=== PATIENT | male | born 1960 | race Caucasian/White ===

== ENCOUNTER 2018-01-19 14:20 | Emergency (ER) | payer OTHER ==
[2018-01-19 14:52] VITALS: RESP 18; TEMP 98.8
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
[2018-01-19 17:27] LABS: Appearance,Urine Clear (Clear); Bilirubin,Urine Negative (Negative); Blood,Urine Small (Negative); Color,Urine Yellow; Glucose,Urine (UA) Negative (Negative); Ketones,Urine Negative (Negative); Leukocyte Esterase,Urine Negative (Negative); Mucus,Urine Many /hpf; Nitrite,Urine Negative (Negative); PH, Urine 5.5 (5.0-8.0); Protein,Urine Trace (Negative); RBC,Urine 4 /hpf (0-5); Specific Gravity,Urine 1.025 (1.001-1.035); Squamous Epithelial Cell,Urine 1 /hpf (0-4); Urobilinogen,Urine <2.0 mg/dL (<2.0); WBC,Urine 2 /hpf (0-5)
[2018-01-19 18:10] VITALS: BP 126/78; PULSE 89
--- NOTE | 2018-01-19 18:18 | XR ---
EXAMINATION TYPE: XR ribs LT w pa chest xray DATE OF EXAM: 01/19/2018 COMPARISON: NONE HISTORY: Rib pain TECHNIQUE: 5 views FINDINGS: I see no pleural effusion or pneumothorax. Left lung is clear of infiltrate. There is no ev idence of a rib fracture. There are no pathologic calcifications. Heart and mediastinum are normal. L ungs are clear. IMPRESSION: Normal chest. Normal left ribs.
== END 2018-01-19 18:05 | disposition home or self-care (01) ==
LOC: EC 14:20
DX: S29.012A Strain of muscle and tendon of back wall of thorax, initial encounter (principal); S20.212A Contusion of left front wall of thorax, initial encounter; I10 Essential (primary) hypertension; Z79.01 Long term (current) use of anticoagulants; Z79.82 Long term (current) use of aspirin; Z79.899 Other long term (current) drug therapy; V59.49XA Driver of pick-up truck or van injured in collision with other motor vehicles in traffic accident, initial encounter; Y92.410 Unspecified street and highway as the place of occurrence of the external cause
CPT/HCPCS: 81001; 99284

== ENCOUNTER → 2018-10-06 | Outpatient (CLI) | payer OTHER ==
[2018-10-06 16:41] LABS: Chol/HDL Ratio 8.75; Cholesterol 245 mg/dL (0-200); Triglycerides >1100.0 mg/dL (0.0-149.0)
[2018-10-06 16:42] LABS: ALT 47 U/L (10-49); AST 29 U/L (14-35); African American GFR (CKD) 95.7 (60.0-200.0); Alkaline Phosphatase 114 U/L (41-126); Calcium 9.1 mg/dL (8.7-10.3); Carbon Dioxide 22.1 mmol/L (21.6-31.8); Chloride 105 mmol/L (96-109); Globulin 1.5 g/dL (1.6-3.3); Glucose 103 mg/dL (70-110); Non-African American GFR(CKD) 82.6 (60.0-200.0); Potassium 4.5 mmol/L (3.5-5.5); Sodium 139 mmol/L (135-145); Total Bilirubin 0.4 mg/dL (0.2-1.2)
[2018-10-06 18:05] LABS: Hemoglobin A1C 5.4 % (4.0-6.0)
== END | disposition home or self-care (01) ==
LOC: LABWHC1 09:13
PROVIDERS: ATTEND Family Medicine
DX: Z00.00 Encounter for general adult medical examination without abnormal findings (principal); I10 Essential (primary) hypertension; Z79.899 Other long term (current) drug therapy
CPT/HCPCS: 36415; 80053; 80061; 83036; 84443; 85652; 86431

== ENCOUNTER 2019-02-16 18:50 | Observation (INO) | payer OTHER ==
[2019-02-16] MEDS ORDERED: ONDANSETRON 4 MG/2 ML VIAL IVP STA (19:09)
[2019-02-16] MEDS ORDERED: HYDROmorphone 0.5 MG/0.5 ML SYRINGE IVP STA (19:09)
[2019-02-16] MEDS ORDERED: SODIUM CHLORIDE 0.9% 1,000 ML IV STA (19:09)
--- NOTE | 2019-02-16 19:13 | ED ---
General Adult HPI - General Chief complaint: Chest Pain Stated complaint: Vomiting Time Seen by Provider: 02/16/19 18:59 Source: patient, family Mode of arrival: ambulatory Limitations: no limitations - History of Present Illness Initial comments: Patient presents to the ED with his for evaluation. Patient states that he has had nausea and vomiting for the past 2 days, and he states that he has been unable to keep anything down. Patient's states that the patient takes daily pain medication for chronic pain syndrome, and she states that he has been unable to keep down any of his pain medication or any other medications for the past 2 days. Patient is complaining of having diffuse pain at this time, including diffuse abdominal pain, chest pain, a headache and generalized myalgias. Patient denies known sick contact. Patient denies trauma or injury, fever, focal numbness/weakness/neuro deficit, neck stiffness, dyspnea, cough or cold symptoms, palpitations, syncope, diarrhea or constipation, bloody or melanotic stool, hematemesis, dysuria/hematuria/urinary frequency/urinary symptoms, decreased urine output, leg or calf swelling or pain, or any other symptoms or complaints. - Related Data Home Medications Medication Instructions Recorded Confirmed Aspirin EC [Ecotrin Low Dose] 81 mg PO DAILY 01/19/18 01/19/18 Atorvastatin [Lipitor] 40 mg PO HS 01/19/18 01/19/18 Clopidogrel [Plavix] 75 mg PO DAILY 01/19/18 01/19/18 Losartan [Cozaar] 50 mg PO DAILY 01/19/18 01/19/18 Metoprolol Succinate (ER) [Toprol 50 mg PO HS 01/19/18 01/19/18 Xl] Previous Rx's Medication Instructions Recorded Ibuprofen 800 mg PO Q6HR PRN #20 tablet 01/19/18 Allergies Allergy/AdvReac Type Severity Reaction Status Date / Time No Known Allergies Allergy Verified 01/19/18 16:15 Review of Systems ROS Statement: Those systems with pertinent positive or pertinent negative responses have been documented in the HPI. ROS Other: All systems not noted in ROS Statement are negative. Past Medical History Past Medical History: GERD/Reflux, Hypertension, Myocardial Infarction ([place]) Additional Past Medical History / Comment(s): joint pain, chronic pain, [place] 2011 History of Any Multi-Drug Resistant Organisms: None Reported Past Surgical History: Cholecystectomy Additional Past Surgical History / Comment(s): back fusion, right wrist tendon repair Past Psychological History: No Psychological Hx Reported Smoking Status: Never smoker Past Alcohol Use History: Rare Past Drug Use History: None Reported General Exam Limitations: no limitations General appearance: alert, in no apparent distress Head exam: Present: atraumatic, normocephalic Eye exam: Present: normal appearance, PERRL, EOMI ENT exam: Present: mucous membranes dry Neck exam: Present: other (Trachea is in midline). Absent: tenderness, meningismus Respiratory exam: Present: normal lung sounds bilaterally. Absent: respiratory distress, wheezes, rales, rhonchi, chest wall tenderness Cardiovascular Exam: Present: regular rate, normal rhythm, normal heart sounds, other (Normal radial pulses bilaterally) GI/Abdominal exam: Present: soft, other (Mild generalized tenderness). Absent: distended, guarding, rebound Extremities exam: Present: other (Negative Cleve's sign bilaterally). Absent: tenderness, pedal edema, calf tenderness Back exam: Absent: tenderness, CVA tenderness (R), CVA tenderness (L) Neurological exam: Present: alert, oriented X3, CN II-XII intact. Absent: motor sensory deficit Psychiatric exam: Present: normal affect, normal mood Skin exam: Present: warm, dry, intact, normal color Course Vital Signs 02/16/19 02/16/19 18:52 19:11 Temperature 98.0 F 97.7 F Pulse Rate 83 73 Respiratory 18 16 Rate Blood Pressure 148/95 150/102 O2 Sat by Pulse 97 99 Oximetry - Reevaluation(s) Reevaluation #1: 02/16/19 20:04 Case, H&P, test results and ED management were discussed with Dr. Rea. He accepts hospital floor admission. He has no further recommendations at this time. 02/16/19 20:07 Patient states that he is now feeling better, and he denies development of any new symptoms while in the ED. Patient has not any vomiting while in the ED. Patient remains alert and breathing comfortably with a normal room air oxygen saturation. Patient and are aware of the patient's test results, and patient agrees with hospital admission at this time. EKG Findings - EKG Comments: EKG Findings:: Normal sinus rhythm, ventricular rate of 75 bpm, no ectopy, normal [place] and QRS intervals, normal QT interval, normal axis, nonspecific ST and T-wave abnormality Medical Decision Making - Medical Decision Making Given the patient's symptoms and cardiac history, will admit the patient to the hospital for cardiac monitoring and serial troponins. Will also admit the patient to the hospital for rehydration with IV fluids. Patient's troponin in the ED is negative. I do not suspect a surgical abdominal condition, as the patient's abdomen is soft and without any surgical signs on exam. Dr. Rea has accepted hospital floor admission. - Lab Data Result diagrams: 02/16/19 19:10 02/16/19 19:10 Lab Results 02/16/19 02/16/19 02/16/19 Range/Units 19:10 19:10 19:10 WBC 12.0 H (3.8-10.6) k/uL RBC 5.21 (4.30-5.90) m/uL Hgb 16.1 (13.0-17.5) gm/dL Hct 46.4 (39.0-53.0) % MCV 89.1 (80.0-100.0) fL MCH 30.9 (25.0-35.0) pg MCHC 34.7 (31.0-37.0) g/dL RDW 12.3 (11.5-15.5) % Plt Count 248 (150-450) k/uL Neutrophils % 82 % Lymphocytes % 12 % Monocytes % 4 % Eosinophils % 1 % Basophils % 0 % Neutrophils # 9.8 H (1.3-7.7) k/uL Lymphocytes # 1.5 (1.0-4.8) k/uL Monocytes # 0.5 (0-1.0) k/uL Eosinophils # 0.1 (0-0.7) k/uL Basophils # 0.0 (0-0.2) k/uL PT 10.4 (9.0-12.0) sec INR 1.0 (<1.2) APTT 25.2 (22.0-30.0) sec Sodium 140 (137-145) mmol/L Potassium 3.9 (3.5-5.1) mmol/L Chloride 99 (98-107) mmol/L Carbon Dioxide 26 (22-30) mmol/L Anion Gap 15 mmol/L BUN 36 H (9-20) mg/dL Creatinine 1.09 (0.66-1.25) mg/dL Est GFR (CKD-EPI)AfAm 86 (>60 ml/min/1.73 sqM) Est GFR (CKD-EPI)NonAf 75 (>60 ml/min/1.73 sqM) Glucose 150 H (74-99) mg/dL Calcium 10.3 H (8.4-10.2) mg/dL Magnesium 2.4 H (1.6-2.3) mg/dL Total Bilirubin 1.0 (0.2-1.3) mg/dL AST 26 (17-59) U/L ALT 36 (4-49) U/L Alkaline Phosphatase 103 (38-126) U/L Troponin I (0.000-0.034) ng/mL Total Protein 8.1 (6.3-8.2) g/dL Albumin 5.3 H (3.5-5.0) g/dL Lipase 108 (23-300) U/L 02/16/ Range/Units 19:10 WBC (3.8-10.6) k/uL RBC (4.30-5.90) m/uL Hgb (13.0-17.5) gm/dL Hct (39.0-53.0) % MCV (80.0-100.0) fL MCH (25.0-35.0) pg MCHC (31.0-37.0) g/dL RDW (11.5-15.5) % Plt Count (150-450) k/uL Neutrophils % % Lymphocytes % % Monocytes % % Eosinophils % % Basophils % % Neutrophils # (1.3-7.7) k/uL Lymphocytes # (1.0-4.8) k/uL Monocytes # (0-1.0) k/uL Eosinophils # (0-0.7) k/uL Basophils # (0-0.2) k/uL PT (9.0-12.0) sec INR (<1.2) APTT (22.0-30.0) sec Sodium (137-145) mmol/L Potassium (3.5-5.1) mmol/L Chloride (98-107) mmol/L Carbon Dioxide (22-30) mmol/L Anion Gap mmol/L BUN (9-20) mg/dL Creatinine (0.66-1.25) mg/dL Est GFR (CKD-EPI)AfAm (>60 ml/min/1.73 sqM) Est GFR (CKD-EPI)NonAf (>60 ml/min/1.73 sqM) Glucose (74-99) mg/dL Calcium (8.4-10.2) mg/dL Magnesium (1.6-2.3) mg/dL Total Bilirubin (0.2-1.3) mg/dL AST (17-59) U/L ALT (4-49) U/L Alkaline Phosphatase (38-126) U/L Troponin I <0.012 (0.000-0.034) ng/mL Total Protein (6.3-8.2) g/dL Albumin (3.5-5.0) g/dL Lipase (23-300) U/L - Radiology Data Radiology results: image reviewed (Chest x-ray is negative) Disposition Clinical Impression: Nausea and vomiting, Abdominal pain, Chest pain, Dehydration Disposition: ADMITTED IP TO THIS [facility] Condition: Stable Is patient prescribed a controlled substance at d/c from ED?: No Referrals: Markell Rea MD [Primary Care Provider] - 1-2 days Time of Disposition: 20:04
[2019-02-16 19:31] LABS: Basophils % (A) 0 %; Eosinophils # (A) 0.1 k/uL (0-0.7); Eosinophils % (A) 1 %; HCT 46.4 % (39.0-53.0); HGB 16.1 gm/dL (13.0-17.5); Lymphocytes # (A) 1.5 k/uL (1.0-4.8); Lymphocytes % (A) 12 %; MCH 30.9 pg (25.0-35.0); MCHC 34.7 g/dL (31.0-37.0); MCV 89.1 fL (80.0-100.0); Mean Platelet Volume 7.9; Monocytes # (A) 0.5 k/uL (0-1.0); Monocytes % (A) 4 %; Neutrophils # (A) 9.8 k/uL (1.3-7.7); Neutrophils % (A) 82 %; Platelet Count 248 k/uL (150-450); RBC 5.21 m/uL (4.30-5.90); RDW 12.3 % (11.5-15.5)
[2019-02-16 19:39] LABS: Partial Thromboplastin Time 25.2 sec (22.0-30.0); Prothrombin Time 10.4 sec (9.0-12.0)
[2019-02-16 19:40] LABS: Albumin 5.3 g/dL (3.5-5.0); Calcium 10.3 mg/dL (8.4-10.2); Magnesium 2.4 mg/dL (1.6-2.3); Potassium 3.9 mmol/L (3.5-5.1); Total Protein 8.1 g/dL (6.3-8.2)
--- NOTE | 2019-02-16 19:45 | XR ---
EXAMINATION TYPE: XR chest 2V DATE OF EXAM: 02/16/2019 COMPARISON: 01/19/2018 HISTORY: Chest pain TECHNIQUE: 2 views FINDINGS: Heart and mediastinum are normal. Lungs are clear. Diaphragm is normal. Bony thorax is inta ct. IMPRESSION: Normal chest. No change.
[2019-02-16] MEDS ORDERED: SODIUM CHLORIDE 0.9% 1,000 ML IV ONE (19:58)
[2019-02-16] MEDS ORDERED: ASPIRIN 81 MG PO STA (20:04)
[2019-02-16] MEDS ORDERED: ONDANSETRON 4 MG/2 ML VIAL IVP PRN (20:05)
[2019-02-16 20:58] VITALS: RESP 18
[2019-02-16] MEDS ORDERED: NON FORMULARY DRUG (Omega-3 Fatty Acids/Fish Oil [Fish Oil 1,000 Mg Softgel] 1 CAP) PO SCH (21:00)
[2019-02-16] MEDS ORDERED: METOPROLOL SUCCINATE (ER) 50 MG TAB.ER.24H PO SCH (21:00)
[2019-02-16] MEDS ORDERED: AMITRIPTYLINE HCL 25 MG TAB PO SCH (21:00)
[2019-02-16] MEDS ORDERED: ATORVASTATIN 40 MG TAB PO SCH (21:00)
[2019-02-16] MEDS ORDERED: ORPHENADRINE CITRATE 100 MG PO SCH (21:00)
[2019-02-16] MEDS: CYCLOBENZAPRINE 10 MG TAB PO SCH (21:19)
[2019-02-16] MEDS: BACLOFEN 10 MG TAB PO SCH (21:20)
[2019-02-16] MEDS: PREGABALIN 75 MG CAP PO SCH (21:20)
[2019-02-16] MEDS: ETODOLAC 400 MG TAB PO SCH (21:20)
[2019-02-16] MEDS: ICOSAPENT ETHYL 1 GM PO SCH (21:33)
[2019-02-16] MEDS: SODIUM CHLORIDE 0.9% 1,000 ML IV SCH (22:48)
[2019-02-17] MEDS: HYDROmorphone 1 MG/ML 1 ML SYRINGE IVP PRN ×2 (01:04→04:40)
[2019-02-17 05:00] LABS: Appearance,Urine Clear (Clear); Bilirubin,Urine Negative (Negative); Blood,Urine Negative (Negative); Color,Urine Yellow; Glucose,Urine (UA) Trace (Negative); Ketones,Urine Trace (Negative); Leukocyte Esterase,Urine Negative (Negative); Nitrite,Urine Negative (Negative); PH, Urine 6.5 (5.0-8.0); Protein,Urine Trace (Negative); Specific Gravity,Urine 1.029 (1.001-1.035)
[2019-02-17 05:35] VITALS: TEMP 98.1
[2019-02-17] MEDS: SODIUM CHLORIDE 0.9% 1,000 ML IV SCH (06:01)
[2019-02-17 07:42] VITALS: BP 125/81; PULSE 61
[2019-02-17 07:51] LABS: Basophils % (A) 0 %; Eosinophils % (A) 0 %; Lymphocytes # (A) 1.6 k/uL (1.0-4.8); Lymphocytes % (A) 13 %; MCV 91.2 fL (80.0-100.0); Mean Platelet Volume 7.8; Monocytes # (A) 0.6 k/uL (0-1.0); Monocytes % (A) 5 %; Neutrophils # (A) 9.7 k/uL (1.3-7.7); Neutrophils % (A) 81 %; Platelet Count 189 k/uL (150-450); RBC 4.17 m/uL (4.30-5.90); RDW 12.4 % (11.5-15.5)
[2019-02-17 07:55] LABS: HGB 12.9 gm/dL (13.0-17.5)
[2019-02-17 08:00] LABS: ALT 27 U/L (4-49); AST 20 U/L (17-59); African American GFR (CKD) >90 (>60 ml/min/1.73 sqM); Albumin 3.7 g/dL (3.5-5.0); Alkaline Phosphatase 63 U/L (38-126); Anion Gap 10 mmol/L; Blood Urea Nitrogen 31 mg/dL (9-20); Calcium 8.4 mg/dL (8.4-10.2); Carbon Dioxide 24 mmol/L (22-30); Chloride 107 mmol/L (98-107); Glucose 111 mg/dL (74-99); Non-African American GFR(CKD) >90 (>60 ml/min/1.73 sqM); Potassium 3.9 mmol/L (3.5-5.1); Sodium 141 mmol/L (137-145); Total Bilirubin 0.8 mg/dL (0.2-1.3)
--- NOTE | 2019-02-17 08:24 | P.CRDCN ---
History of Present Illness Consult date: 02/17/19 Requesting physician: Markell Rea Reason for Consult (text): chest pain Chief complaint: nausea, vomiting, generalized pain History of present illness: This is a pleasant 58-year-old gentleman [facility]. Has a history of supposedly PR in 2010 at which time he was a [facility] and did not undergo coronary angiography, was treated medically. Within the last 2 years he started following with a assembly and packing supervisor who noted abnormalities on his EKG and did some testing at which time he was told he has a blockage that'll be treated medically. He also has a history of hypertension and hyperlipidemia as well as chronic back pain. He presented to the emergency department with complaints of nausea and vomiting since the morning of February 14. He's been unable to keep down any food, drink or medications. Upon arrival he also complained of some generalized discomfort in his abdomen and chest that he feels is related to vom iting. EKG on admission showed sinus rhythm with nonspecific ST-T wave abnormalities. Chest x-ray showed normal chest, no change. Laboratory values on admission showed white blood cell count 12,000, hemoglobin 16.1, BUN 36, creatinine 1.09, calcium 10.3, magnesium 2.4 and troponins have been negative 2. Repeat labs this morning showed white blood cell count of 12,000, hemoglobin 12.9, BUN 31, creatinine 0.89 and calcium 8.4. He is currently on aspirin 81 mg by mouth daily, atorvastatin 40 mg by mouth daily at bedtime, Plavix 75 mg by mouth daily, losartan 50 mg daily and metoprolol succinate 50 mg by mouth daily at bedtime. He has 0.9 normal saline running at 120 mL an hour. Upon examination, patient is resting comfortably in bed. Denies complaints of chest discomfort while lying in bed but does feel some discomfort if he moves around that seems to be musculoskeletal. He has no current complaints of nausea or vomiting. He has noted some shortness of breath just over the past couple of days with this illness as well as some lightheadedness but otherwise has no complaints. Past Medical History Past Medical History: GERD/Reflux, Hypertension, Myocardial Infarction ([place]) Additional Past Medical History / Comment(s): joint pain, chronic pain, [place] 2010 Last Myocardial Infarction Date:: 2010 History of Any Multi-Drug Resistant Organisms: None Reported Past Surgical History: Cholecystectomy Additional Past Surgical History / Comment(s): back fusion, right wrist tendon repair Past Psychological History: Depression Smoking Status: Never smoker Past Alcohol Use History: Rare Past Drug Use History: None Reported Medications and Allergies Home Medications Medication Instructions Recorded Confirmed Type Aspirin EC [Ecotrin Low Dose] 81 mg PO DAILY 01/19/18 02/16/19 History Atorvastatin [Lipitor] 40 mg PO HS 01/19/18 02/16/19 History Clopidogrel [Plavix] 75 mg PO DAILY 01/19/18 02/16/19 History Metoprolol Succinate (ER) [Toprol 50 mg PO HS 01/19/18 02/16/19 History Xl] Amitriptyline HCl [Elavil] 25 mg PO HS 02/16/19 02/16/19 History Baclofen [Lioresal] 10 mg PO TID 02/16/19 02/16/19 History DULoxetine HCL [Cymbalta] 30 mg PO DAILY 02/16/19 02/16/19 History Diclofenac Sodium [Voltaren] 75 mg PO BID 02/16/19 02/16/19 History Hydrochlorothiazide [Hydrodiuril] 25 mg PO DAILY 02/16/19 02/16/19 History Icosapent Ethyl [Vascepa] 1 gm PO BID 02/16/19 02/16/19 History Metaxalone [Skelaxin] 800 mg PO TID 02/16/19 02/16/19 History Omar-3 Fatty Acids/Fish Oil [Fish 1 cap PO BID 02/16/19 02/16/19 History Oil 1,000 mg Softgel] Omeprazole 20 mg PO DAILY 02/16/19 02/16/19 History Orphenadrine Citrate [Orphenadrine 100 mg PO BID 02/16/19 02/16/19 History Citrate ER] Pregabalin [Lyrica] 75 mg PO BID 02/16/19 02/16/19 History Allergies Allergy/AdvReac Type Severity Reaction Status Date / Time No Known Allergies Allergy Verified 02/16/19 20:19 Physical Exam Vitals: Vital Signs Temp Pulse Pulse Resp BP BP Pulse Ox 02/17/19 07:41 98.1 F 61 18 125/81 96 02/17/19 04:00 98.1 F 70 18 141/82 97 02/17/19 00:00 98.2 F 83 18 143/83 97 02/16/19 23:41 79 18 02/16/19 20:57 97.7 F 79 18 145/88 97 02/16/19 20:15 17 02/16/19 19:11 97.7 F 73 16 150/102 99 02/16/19 18:52 98.0 F 83 18 148/95 97 Intake and Output 02/16/19 02/17/19 02/17/19 22:59 06:59 14:59 Output Total 350 Balance -350 Output: Urine 350 Other: # Voids 1 Weight 104.326 kg PHYSICAL EXAMINATION: HEENT: Head is atraumatic, normocephalic. Pupils equal, round. Neck is supple. There is no elevated jugular venous pressure. HEART EXAMINATION: Heart sounds regular, S1 and S2 normal. No murmur or gallop heard. CHEST EXAMINATION: Lungs are clear to auscultation. No chest wall tenderness is noted on palpation or with deep breathing. ABDOMEN: Soft, nontender. Bowel sounds are heard. No organomegaly noted. EXTREMITIES: 1+ peripheral pulses with no evidence of peripheral edema and no calf tenderness noted. NEUROLOGIC patient is awake, alert and oriented x3. . Results 02/17/19 07:16 02/17/19 07:16 Cardiac Enzymes 02/16/19 02/16/19 02/17/19 Range/Units 19:10 19:10 01:04 AST 26 (17-59) U/L Troponin I <0.012 <0.012 (0.000-0.034) ng/mL 02/17/19 02/17/19 Range/Units 07:16 07:16 AST 20 (17-59) U/L Troponin I <0.012 (0.000-0.034) ng/mL Coagulation 02/16/19 Range/Units 19:10 PT 10.4 (9.0-12.0) sec APTT 25.2 (22.0-30.0) sec CBC 02/16/19 02/17/19 Range/Units 19:10 07:16 WBC 12.0 H 12.0 H (3.8-10.6) k/uL RBC 5.21 4.17 L (4.30-5.90) m/uL Hgb 16.1 12.9 L D (13.0-17.5) gm/dL Hct 46.4 38.0 L (39.0-53.0) % Plt Count 248 189 (150-450) k/uL Comprehensive Metabolic Panel 02/16/19 02/17/19 Range/Units 19:10 07:16 Sodium 140 141 (137-145) mmol/L Potassium 3.9 3.9 (3.5-5.1) mmol/L Chloride 99 107 (98-107) mmol/L Carbon Dioxide 26 24 (22-30) mmol/L BUN 36 H 31 H (9-20) mg/dL Creatinine 1.09 0.89 (0.66-1.25) mg/dL Glucose 150 H 111 H (74-99) mg/dL Calcium 10.3 H 8.4 (8.4-10.2) mg/dL AST 26 20 (17-59) U/L ALT 36 27 (4-49) U/L Alkaline Phosphatase 103 63 (38-126) U/L Total Protein 8.1 6.0 L (6.3-8.2) g/dL Albumin 5.3 H 3.7 (3.5-5.0) g/dL Current Medications Generic Name Dose Route Start Last Admin Trade Name Freq PRN Reason Stop Dose Admin Amitriptyline HCl 25 mg 02/16/19 21:00 02/16/19 21:20 Elavil PO 25 mg HS JYOTI Administration Aspirin 81 mg 02/17/19 09:00 Aspirin PO DAILY COUNT INCLUDES THE [facility] Atorvastatin Calcium 40 mg 02/16/19 21:00 02/16/19 21:19 Lipitor PO 40 mg HS JYOTI Administration Baclofen 10 mg 02/16/19 22:00 02/16/19 21:20 Lioresal PO 10 mg TID JYOTI Administration Clopidogrel Bisulfate 75 mg 02/17/19 09:00 Plavix PO DAILY COUNT INCLUDES THE [facility] Cyclobenzaprine HCl 10 mg 02/16/19 22:00 02/16/19 21:19 Flexeril PO 10 mg TID JYOTI Administration Duloxetine HCl 30 mg 02/17/19 09:00 Cymbalta PO DAILY COUNT INCLUDES THE [facility] Etodolac 400 mg 02/16/19 21:00 02/16/19 21:20 Lodine PO 400 mg BID JYOTI Administration Hydrochlorothiazide 25 mg 02/17/19 09:00 Hydrodiuril PO DAILY JYOTI Hydromorphone HCl 1 mg 02/16/19 20:57 02/17/19 04:40 Dilaudid IVP 1 mg Q4HR PRN Administration Pain Sodium Chloride 1,000 mls @ 120 mls/hr 02/16/19 20:15 02/17/19 06:01 Saline 0.9% IV 120 mls/hr .[id number] JYOTI Administration Losartan Potassium 50 mg 02/17/19 09:00 Cozaar PO DAILY JYOTI Metoprolol Succinate 50 mg 02/16/19 21:00 02/16/19 21:19 Toprol Xl PO 50 mg HS JYOTI Administration Non-Formulary Medication 1 gm 02/16/19 21:00 02/16/19 21:33 Icosapent Ethyl [Vascepa] PO Not Given BID JYOTI Ondansetron HCl 4 mg 02/16/19 20:05 Zofran IVP Q8HR PRN Nausea And Vomiting Pantoprazole Sodium 40 mg 02/17/19 09:00 Protonix PO DAILY JYOTI Pregabalin 75 mg 02/16/19 21:00 02/16/19 21:20 Lyrica PO 75 mg BID JYOTI Administration Intake and Output 02/16/19 02/17/19 02/17/19 22:59 06:59 14:59 Output Total 350 Balance -350 Output: Urine 350 Other: # Voids 1 Weight 104.326 kg 02/17/19 07:16 02/17/19 07:16 EKG Interpretations (text) Sinus rhythm with nonspecific ST-T wave abnormalities Assessment and Plan Assessment: #1 symptoms of nausea, vomiting, abdominal and chest discomfort, troponins negative 2 #2 history of CAD #3 hypertension #4 hyperlipidemia #5 chronic back pain Plan: From cardiology perspective, pain is atypical and likely due to musculoskeletal discomfort secondary to repeated vomiting for 3 days. Troponins have been negative. The patient may be discharged once cleared by primary and follow-up within the next week with his primary assembly and packing supervisor. BUSINESS TEACHER note has been reviewed, I agree with a documented findings and plan of care. Patient was seen and examined.
[2019-02-17] MEDS: BACLOFEN 10 MG TAB PO SCH (08:32)
[2019-02-17] MEDS: ETODOLAC 400 MG TAB PO SCH (08:32)
[2019-02-17] MEDS: PREGABALIN 75 MG CAP PO SCH (08:32)
[2019-02-17] MEDS: CYCLOBENZAPRINE 10 MG TAB PO SCH (08:32)
[2019-02-17] MEDS ORDERED: PANTOPRAZOLE 40 MG TABLET PO SCH (09:00)
[2019-02-17] MEDS ORDERED: DULoxetine HCL 30 MG CAPSULE.DR PO SCH (09:00)
[2019-02-17] MEDS ORDERED: LOSARTAN 50 MG TAB PO SCH (09:00)
[2019-02-17] MEDS ORDERED: ASPIRIN 81 MG PO SCH (09:00)
[2019-02-17] MEDS ORDERED: CLOPIDOGREL 75 MG TAB PO SCH (09:00)
[2019-02-17] MEDS ORDERED: HYDROCHLOROTHIAZIDE 25 MG TAB PO SCH (09:00)
[2019-02-17] MEDS: ICOSAPENT ETHYL 1 GM PO SCH (10:43)
--- NOTE | 2019-03-05 22:36 | HP ---
HISTORY AND PHYSICAL CHIEF COMPLAINT: A 58-year-old white male, nausea, vomiting for the past 2 days, unable to keep anything down. He states he takes chronic pain medicine at home, unable to keep his pain medicine down for 2 days. He is complaining of diffuse pain in his muscles of his abdomen and chest, headache and myalgias. Denies any dysuria, frequency, urgency, hesitancy, decreased urine output, leg or calf pain or any other symptoms. MEDICATIONS: At home, Ecotrin 81 mg daily. Lipitor 40 daily, Plavix 75 daily, Cozaar 50 daily. ALLERGIES: Negative. REVIEW OF SYSTEMS: Fourteen-point review of systems negative except for mentioned in HPI. PAST MEDICAL HISTORY: GERD, hypertension, myocardial infarction. PAST SURGICAL HISTORY: Cholecystectomy, back fusion, right wrist tendon repair. SOCIAL HISTORY: Nonsmoker, alcohol. PHYSICAL EXAMINATION: Vital signs stable. Afebrile. CARDIOVASCULAR: S1, S2. Lungs clear. GI soft. Hematology negative Homans. Psych: Fair mood and affect. Neurologic: Cranial nerves are intact. Ophthalmologic: Pupils equal, round, reactive. Hematology negative Homans. Temp 97 to 98, pulse 73 to 83. Respiratory rate is 16 to 18, blood pressure 140s to 150 over 95 to 102, oxygen saturation 97 to 99% on room air. ASSESSMENT AND PLAN: 1. Dehydration. 2. Acute nausea, vomiting. 3. Atypical chest pain. 4. Cardiac history. 5. Rule out troponins q.8h x3. negative. 6. Possible gastroenteritis. 7. Consult Cardiology. 8. Please see further orders. MMODL / IJN: [id number] /
--- NOTE | 2019-03-06 00:08 | DS ---
DISCHARGE SUMMARY ADMIT DATE: 02/16/2019. DISCHARGE DATE: 02/17/2019. CONDITION: Stable. PROGNOSIS: Guarded. Ambulate as tolerated. MEDICATIONS: 1. Aspirin 81 mg daily. 2. Lipitor 40 mg daily. 3. Plavix 75 mg daily. 4. Toprol XL 50 mg daily. 5. HydroDIURIL 25 mg daily. 6. Skelaxin 800 t.i.d. 7. Vascepa 1 g b.i.d. 8. Aricept 10 mg t.i.d. 9. Elavil 25 at night. 10.Lyrica 75 mg b.i.d. 11.Terfenadine citrate 100 mg b.i.d. 12.Omeprazole 20 mg daily. 13.Voltaren 75 mg b.i.d. 14.Cymbalta 30 mg daily. CONDITION: Stable. PROGNOSIS: Guarded. Ambulate as tolerated. White male came with atypical chest pain. Cardiology saw the patient and cleared him from a medical standpoint for many heart disease. At which time he was sent home to follow up as an outpatient. EKG was normal. Musculoskeletal in nature pain. MMODL / IJN: [id number] /
== END 2019-02-17 12:09 | disposition home or self-care (01) ==
LOC: EC 18:50 → 1SOBS 20:07
PROVIDERS: ADMIT Family Medicine; ATTEND Family Medicine
DX: R07.89 Other chest pain (principal); E86.0 Dehydration; R10.9 Unspecified abdominal pain; R11.2 Nausea with vomiting, unspecified; R51 Headache; G89.4 Chronic pain syndrome; K21.9 Gastro-esophageal reflux disease without esophagitis; I10 Essential (primary) hypertension; E78.5 Hyperlipidemia, unspecified; I25.10 Atherosclerotic heart disease of native coronary artery without angina pectoris; F32.9 Major depressive disorder, single episode, unspecified; I25.2 Old myocardial infarction; Z79.1 Long term (current) use of non-steroidal anti-inflammatories (NSAID); Z79.02 Long term (current) use of antithrombotics/antiplatelets; Z79.82 Long term (current) use of aspirin; Z79.899 Other long term (current) drug therapy; Z90.49 Acquired absence of other specified parts of digestive tract; Z98.1 Arthrodesis status
CPT/HCPCS: 93005 ×2; 96376; 96374; 96375; 99285; 36415; 80053 ×2; 83690; 83735; 84484 ×2; 85025 ×2; 85610; 85730; 81003; 71046; G0378 ×2; J2405; J1170 ×2

== ENCOUNTER → 2019-05-28 | Outpatient (CLI) | payer OTHER ==
[~2019-05-28] MED LIST: REGADENOSON 0.4 MG/5 ML SYRINGE IV ONE
--- NOTE | 2019-05-28 10:16 | EST ---
EXERCISE STRESS AGE: 58 SEX: M HT: 72' WT: 230 PROTOCOL: Lexiscan Cardiolite Stress Test HEART RATE REST: 67 BLOOD PRESSURE REST: 130/81 MAXIMUM HEART RATE ACHIEVED: 92 MAXIMUM BLOOD PRESSURE: 133/79 85% MPHR: 138 100% MPHR: 162 INDICATIONS: Abnormal EKG CLINICAL INFORMATION: Baseline rhythm is a sinus mechanism, rate 67, normal axis and intervals. T-wave inversion in the inferolateral leads cannot exclude ischemia. Baseline blood pressure 130/81 mmHg. Patient received injection of Lexiscan. Electrocardiograph monitoring revealed no evidence of diagnostic ischemic ST deviation. Cardiolite was injected per protocol. CONCLUSION: 1. Nondiagnostic electrocardiograph stress testing. 2. Nuclear images will be reported separately. MMODL / IJN: [id number] /
--- NOTE | 2019-05-28 10:58 | NM ---
EXAMINATION TYPE: NM stress lexiscan cardiolite DATE OF EXAM: 05/28/2019 COMPARISON: NONE HISTORY: Precordial chest pain and abnormal EKG TECHNIQUE: After the intravenous administration of 10.34 mCi Tc 99m Sestamibi - Cardiolite resting S PECT images acquired 45 minutes post injection. The patient received 0.4mg Lexiscan, 25.9 mCi Tc 99m Sestamibi - Stress images obtained [address] injection FINDINGS: Review of stress and rest SPECT images demonstrates no distinct perfusion abnormality. Gated analysi s shows normal wall motion with an estimated left ventricular ejection fraction of 69 %. IMPRESSION: No scintigraphic evidence for reversible ischemia.
== END | disposition home or self-care (01) ==
LOC: RADNMMAIN 07:37
PROVIDERS: ATTEND Family Medicine
DX: R94.31 Abnormal electrocardiogram [ECG] [EKG] (principal)
CPT/HCPCS: 93017; 78452; A9500; J2785

== ENCOUNTER → 2019-09-01 | Outpatient (CLI) | payer OTHER ==
--- NOTE | 2019-09-01 15:29 | XR ---
EXAMINATION TYPE: XR Hip Complete LT DATE OF EXAM: 09/01/2019 COMPARISON: NONE HISTORY: Pain TECHNIQUE: 2 views submitted FINDINGS: There is no evidence of erosive change or acute fracture. Calcification pelvis likely vascular. IMPRESSION: 1. No evidence of acute fracture or dislocation.
== END | disposition home or self-care (01) ==
LOC: RADXRMAIN 14:15
PROVIDERS: ATTEND Physician Assistant
DX: M25.552 Pain in left hip (principal)
CPT/HCPCS: 73502

== ENCOUNTER 2019-11-17 14:27 | Observation (INO) | payer OTHER ==
[2019-11-17] MEDS ORDERED: NITROGLYCERIN SL TABS 0.4 MG TAB SUBLINGUAL STA ×3 (14:44)
[2019-11-17] MEDS ORDERED: ASPIRIN 81 MG PO STA (14:44)
--- NOTE | 2019-11-17 14:46 | ED ---
General Adult HPI - General Chief complaint: Chest Pain Stated complaint: Chest Pain Time Seen by Provider: 11/17/19 14:34 Source: patient, RN notes reviewed Mode of arrival: wheelchair Limitations: no limitations - History of Present Illness Initial comments: Patient is a pleasant 59-year-old male presenting to the emergency Department with complaints of chest discomfort. Onset of symptoms was this morning. Symptoms are waxing and waning however steadily has gotten worse and now is becoming severe. Discomfort is 9/10. Discomfort feels like pressure with radiation to the left shoulder. Patient does have mild dyspnea and was a little bit sweaty earlier. No nausea. Patient does have history of heart attack around 10 years ago with somewhat similar symptoms. - Related Data Home Medications Medication Instructions Recorded Confirmed Aspirin EC [Ecotrin Low Dose] 81 mg PO DAILY 01/19/18 02/16/19 Atorvastatin [Lipitor] 40 mg PO HS 01/19/18 02/16/19 Clopidogrel [Plavix] 75 mg PO DAILY 01/19/18 02/16/19 Metoprolol Succinate (ER) [Toprol 50 mg PO HS 01/19/18 02/16/19 Xl] Amitriptyline HCl [Elavil] 25 mg PO HS 02/16/19 02/16/19 Baclofen [Lioresal] 10 mg PO TID 02/16/19 02/16/19 DULoxetine HCL [Cymbalta] 30 mg PO DAILY 02/16/19 02/16/19 Diclofenac Sodium [Voltaren] 75 mg PO BID 02/16/19 02/16/19 Icosapent Ethyl [Vascepa] 1 gm PO BID 02/16/19 02/16/19 Metaxalone [Skelaxin] 800 mg PO TID 02/16/19 02/16/19 [place]-3 Fatty Acids/Fish Oil [Fish 1 cap PO BID 02/16/19 02/16/19 Oil 1,000 mg Softgel] Omeprazole 20 mg PO DAILY 02/16/19 02/16/19 Orphenadrine Citrate [Orphenadrine 100 mg PO BID 02/16/19 02/16/19 Citrate ER] Pregabalin [Lyrica] 75 mg PO BID 02/16/19 02/16/19 hydroCHLOROthiazide [Hydrodiuril] 25 mg PO DAILY 02/16/19 02/16/19 Allergies Allergy/AdvReac Type Severity Reaction Status Date / Time No Known Allergies Allergy Verified 11/17/19 14:31 Review of Systems ROS Statement: Those systems with pertinent positive or pertinent negative responses have been documented in the HPI. ROS Other: All systems not noted in ROS Statement are negative. Constitutional: Denies: fever Eyes: Denies: eye pain ENT: Denies: ear pain Respiratory: Reports: as per HPI. Denies: cough Cardiovascular: Reports: as per HPI, chest pain Endocrine: Denies: fatigue Gastrointestinal: Denies: abdominal pain Genitourinary: Denies: dysuria Musculoskeletal: Denies: back pain Skin: Denies: rash Neurological: Denies: weakness Past Medical History Past Medical History: GERD/Reflux, Hypertension, Myocardial Infarction ([place]) Additional Past Medical History / Comment(s): joint pain, chronic pain, [place] 2010 Last Myocardial Infarction Date:: 2010 History of Any Multi-Drug Resistant Organisms: None Reported Past Surgical History: Cholecystectomy Additional Past Surgical History / Comment(s): back fusion, right wrist tendon repair Past Psychological History: Depression Smoking Status: Never smoker Past Alcohol Use History: Rare Past Drug Use History: None Reported General Exam Limitations: no limitations General appearance: alert, in no apparent distress Head exam: Present: normocephalic Eye exam: Present: normal appearance Neck exam: Present: normal inspection Respiratory exam: Present: normal lung sounds bilaterally. Absent: chest wall tenderness Cardiovascular Exam: Present: regular rate, normal rhythm Expanded Peripheral pulses: 2+: Radial (R), Radial (L), Posterior Tibialis (R), Posterior Tibialis (L) GI/Abdominal exam: Present: soft. Absent: tenderness Extremities exam: Present: normal inspection. Absent: pedal edema, calf tenderness Neurological exam: Present: alert Psychiatric exam: Present: normal affect, normal mood Skin exam: Present: normal color Course Vital Signs 11/17/19 11/17/19 11/17/19 14:28 15:05 15:10 Temperature 98.1 F Pulse Rate 122 H 133 H 140 H Respiratory 18 18 18 Rate Blood Pressure 121/82 131/93 92/72 O2 Sat by Pulse 98 99 96 Oximetry 11/17/19 11/17/19 15:27 16:08 Temperature Pulse Rate 120 H 114 H Respiratory 18 18 Rate Blood Pressure 93/70 116/76 O2 Sat by Pulse 96 97 Oximetry EKG Findings - EKG Comments: EKG Findings:: Sinus tachycardia 112. MT 126. QRS 76. QT 314. QTC 441. Left axis. Inferior Q waves. Nonspecific ST-T. Medical Decision Making - Medical Decision Making Patient reevaluated and resting comfortably in bed. No improvement with nitroglycerin. Patient will be provided morphine. Case was discussed in detail with Dr. Rea who did come evaluate his patient and will admit. Heart rate has improved. - Lab Data Result diagrams: 11/17/19 15:07 11/17/19 15:07 Lab Results 11/17/19 11/17/19 11/17/19 Range/Units 15:07 15:07 15:07 WBC 12.2 H (3.8-10.6) k/uL RBC 5.53 (4.30-5.90) m/uL Hgb 17.2 (13.0-17.5) gm/dL Hct 50.9 (39.0-53.0) % MCV 92.0 (80.0-100.0) fL MCH 31.1 (25.0-35.0) pg MCHC 33.8 (31.0-37.0) g/dL RDW 13.6 (11.5-15.5) % Plt Count 250 (150-450) k/uL Neutrophils % 74 % Lymphocytes % 19 % Monocytes % 6 % Eosinophils % 1 % Basophils % 0 % Neutrophils # 9.0 H (1.3-7.7) k/uL Lymphocytes # 2.3 (1.0-4.8) k/uL Monocytes # 0.7 (0-1.0) k/uL Eosinophils # 0.1 (0-0.7) k/uL Basophils # 0.0 (0-0.2) k/uL PT 9.7 (9.0-12.0) sec INR 0.9 (<1.2) APTT 23.2 (22.0-30.0) sec D-Dimer <0.17 (<0.60) mg/L FEU Sodium 136 L (137-145) mmol/L Potassium 3.8 (3.5-5.1) mmol/L Chloride 102 (98-107) mmol/L Carbon Dioxide 25 (22-30) mmol/L Anion Gap 9 mmol/L BUN 26 H (9-20) mg/dL Creatinine 1.03 (0.66-1.25) mg/dL Est GFR (CKD-EPI)AfAm >90 (>60 ml/min/1.73 sqM) Est GFR (CKD-EPI)NonAf 80 (>60 ml/min/1.73 sqM) Glucose 123 H (74-99) mg/dL Calcium 9.6 (8.4-10.2) mg/dL Magnesium 1.9 (1.6-2.3) mg/dL Total Bilirubin 1.5 H (0.2-1.3) mg/dL AST 23 (17-59) U/L ALT 31 (4-49) U/L Alkaline Phosphatase 73 (38-126) U/L Troponin I (0.000-0.034) ng/mL Total Protein 7.0 (6.3-8.2) g/dL Albumin 4.6 (3.5-5.0) g/dL 11/17/19 Range/Units 15:07 WBC (3.8-10.6) k/uL RBC (4.30-5.90) m/uL Hgb (13.0-17.5) gm/dL Hct (39.0-53.0) % MCV (80.0-100.0) fL MCH (25.0-35.0) pg MCHC (31.0-37.0) g/dL RDW (11.5-15.5) % Plt Count (150-450) k/uL Neutrophils % % Lymphocytes % % Monocytes % % Eosinophils % % Basophils % % Neutrophils # (1.3-7.7) k/uL Lymphocytes # (1.0-4.8) k/uL Monocytes # (0-1.0) k/uL Eosinophils # (0-0.7) k/uL Basophils # (0-0.2) k/uL PT (9.0-12.0) sec INR (<1.2) APTT (22.0-30.0) sec D-Dimer (<0.60) mg/L FEU Sodium (137-145) mmol/L Potassium (3.5-5.1) mmol/L Chloride (98-107) mmol/L Carbon Dioxide (22-30) mmol/L Anion Gap mmol/L BUN (9-20) mg/dL Creatinine (0.66-1.25) mg/dL Est GFR (CKD-EPI)AfAm (>60 ml/min/1.73 sqM) Est GFR (CKD-EPI)NonAf (>60 ml/min/1.73 sqM) Glucose (74-99) mg/dL Calcium (8.4-10.2) mg/dL Magnesium (1.6-2.3) mg/dL Total Bilirubin (0.2-1.3) mg/dL AST (17-59) U/L ALT (4-49) U/L Alkaline Phosphatase (38-126) U/L Troponin I <0.012 (0.000-0.034) ng/mL Total Protein (6.3-8.2) g/dL Albumin (3.5-5.0) g/dL - Radiology Data Radiology results: image reviewed (Chest x-ray shows no acute process) Disposition Clinical Impression: Chest pain Disposition: ADMITTED IP TO THIS HOSP Is patient prescribed a controlled substance at d/c from ED?: No Referrals: Markell Rea MD [Primary Care Provider] - 1-2 days Decision Time: 16:12
--- NOTE | 2019-11-17 15:04 | XR ---
EXAMINATION TYPE: XR chest 2V DATE OF EXAM: 11/17/2019 COMPARISON: 02/16/2019 HISTORY: Shortness of breath TECHNIQUE: Frontal and lateral views of the chest are obtained. FINDINGS: Scattered senescent parenchymal changes noted. Hyperinflation compatible with COPD. No evidence for infiltrate. No evidence for atelectasis. Heart size is stable. Mediastinal structures are stable and grossly unremarkable. No evidence for hilar prominence. Degenerative changes dorsal spine. IMPRESSION: 1. No evidence for acute pulmonary disease.
[2019-11-17 15:48] LABS: Basophils % (A) 0 %; Eosinophils # (A) 0.1 k/uL (0-0.7); Eosinophils % (A) 1 %; HCT 50.9 % (39.0-53.0); HGB 17.2 gm/dL (13.0-17.5); Lymphocytes # (A) 2.3 k/uL (1.0-4.8); Lymphocytes % (A) 19 %; MCH 31.1 pg (25.0-35.0); MCHC 33.8 g/dL (31.0-37.0); Mean Platelet Volume 7.9; Monocytes # (A) 0.7 k/uL (0-1.0); Monocytes % (A) 6 %; Neutrophils % (A) 74 %; Platelet Count 250 k/uL (150-450); RBC 5.53 m/uL (4.30-5.90); RDW 13.6 % (11.5-15.5); WBC 12.2 k/uL (3.8-10.6)
[2019-11-17 15:54] LABS: ALT 31 U/L (4-49); AST 23 U/L (17-59); African American GFR (CKD) >90 (>60 ml/min/1.73 sqM); Albumin 4.6 g/dL (3.5-5.0); Alkaline Phosphatase 73 U/L (38-126); Anion Gap 9 mmol/L; Blood Urea Nitrogen 26 mg/dL (9-20); Calcium 9.6 mg/dL (8.4-10.2); Carbon Dioxide 25 mmol/L (22-30); Chloride 102 mmol/L (98-107); Glucose 123 mg/dL (74-99); Magnesium 1.9 mg/dL (1.6-2.3); Non-African American GFR(CKD) 80 (>60 ml/min/1.73 sqM); Potassium 3.8 mmol/L (3.5-5.1); Sodium 136 mmol/L (137-145); Total Bilirubin 1.5 mg/dL (0.2-1.3)
[2019-11-17 16:02] LABS: D-Dimer <0.17 mg/L FEU (<0.60); INR 0.9 (<1.2); Partial Thromboplastin Time 23.2 sec (22.0-30.0); Prothrombin Time 9.7 sec (9.0-12.0)
[2019-11-17] MEDS ORDERED: MORPHINE SULFATE 4 MG/ML SYRINGE IVP STA (16:09)
[2019-11-17] MEDS ORDERED: NITROGLYCERIN SL TABS 0.4 MG TAB SUBLINGUAL PRN (16:12)
[2019-11-17] MEDS ORDERED: MORPHINE SULFATE 2 MG/ML SYRINGE IVP PRN (17:17)
[2019-11-17 17:33] VITALS: RESP 14
[2019-11-17] MEDS ORDERED: HYDROcodone/APAP 5-325MG 1 EACH TAB PO PRN (17:58)
[2019-11-17] MEDS ORDERED: NON FORMULARY DRUG (Sildenafil Citrate [Sildenafil Citrate] 50 MG Tablet) PO PRN (17:58)
[2019-11-17] MEDS ORDERED: CYCLOBENZAPRINE 10 MG TAB PO PRN (17:58)
[2019-11-17] MEDS: MORPHINE SULFATE 2 MG/ML SYRINGE IVP PRN ×2 (18:28→22:24)
[2019-11-17] MEDS: NITROGLYCERIN OINT 1 INCH/GM PACKET TOPICAL SCH (20:13)
[2019-11-17] MEDS: PREGABALIN 100 MG CAP PO SCH (20:57)
[2019-11-17] MEDS: ICOSAPENT ETHYL PO SCH (20:57)
[2019-11-17] MEDS ORDERED: AMITRIPTYLINE HCL 25 MG TAB PO SCH (21:00)
[2019-11-18] MEDS: NITROGLYCERIN OINT 1 INCH/GM PACKET TOPICAL SCH ×2 (01:07→06:04)
[2019-11-18] MEDS: MORPHINE SULFATE 2 MG/ML SYRINGE IVP PRN (02:54)
[2019-11-18] MEDS ORDERED: ATORVASTATIN 40 MG TAB PO SCH (09:00)
[2019-11-18] MEDS ORDERED: CLOPIDOGREL 75 MG TAB PO SCH (09:00)
[2019-11-18] MEDS ORDERED: ASPIRIN 325 MG TAB PO SCH (09:00)
[2019-11-18] MEDS ORDERED: METOPROLOL SUCCINATE (ER) 50 MG TAB.ER.24H PO SCH (09:00)
[2019-11-18] MEDS ORDERED: DULoxetine HCL 30 MG CAPSULE.DR PO SCH (09:00)
[2019-11-18] MEDS ORDERED: LOSARTAN 50 MG TAB PO SCH (09:00)
[2019-11-18] MEDS ORDERED: ASPIRIN 81 MG PO SCH (09:00)
[2019-11-18] MEDS ORDERED: EZETIMIBE 10 MG TAB PO SCH (09:00)
[2019-11-18] MEDS ORDERED: NON FORMULARY DRUG (Omega-3 Fatty Acids/Fish Oil [Fish Oil 1,000 Mg Softgel] 1 EACH Capsul PO SCH (09:00)
[2019-11-18 09:15] LABS: Cholesterol 172 mg/dL (<200); HDL Cholesterol 38 mg/dL (40-60); LDL Cholesterol,Calculated 105 mg/dL (0-99); Triglycerides 146 mg/dL (<150)
[2019-11-18] MEDS: PREGABALIN 100 MG CAP PO SCH (10:02)
[2019-11-18] MEDS: ICOSAPENT ETHYL PO SCH (11:53)
--- NOTE | 2019-11-18 13:00 | ECHOF ---
Referral Reason:sob MEASUREMENTS -------- HEIGHT: 182.9 cm WEIGHT: 95.3 kg BP: 143/89 RVIDd: 2.8 cm (< 3.3) IVSd: 1.5 cm (0.6 - 1.1) LVIDd: 3.9 cm (3.9 - 5.3) LVPWd: 1.7 cm (0.6 - 1.1) IVSs: 1.8 cm LVIDs: 2.4 cm LVPWs: 2.0 cm LAESV Index (A-L): 21.16 ml/m Ao Diam: 2.7 cm (2.0 - 3.7) AV Cusp: 1.9 cm (1.5 - 2.6) MV EXCURSION: 17.027 mm (> 18.000) MV EF SLOPE: 87 mm/s (70 - 150) EPSS: 0.6 cm MV E Jett: 0.68 m/s MV DecT: 118 ms MV A Jett: 0.65 m/s MV E/A Ratio: 1.05 RAP: 5.00 mmHg RVSP: 21.21 mmHg FINDINGS -------- This was a technically adequate study. The left ventricular size is normal. There is moderate concentric left ventricular hypertrophy. O verall left ventricular systolic function is normal with, an EF between 55 - 60 %. The diastolic fi lling pattern is normal for the age of the patient 11.38. The right ventricle is normal in size. Normal LA size by volume 22+/-6 ml/m2. The right atrial size is normal. Interatrial and interventricular septum intact. There is no evidence of aortic regurgitation. There is no evidence of aortic stenosis. No mitral regurgitation. Mild tricuspid regurgitation present. There is no evidence of pulmonary hypertension. The right v entricular systolic pressure, as measured by Doppler, is 21.21mmHg. There is no pulmonic regurgitation present. The aortic root size is normal. The inferior vena cava is mildly dilated. There is no pericardial effusion. CONCLUSIONS -------- 1. The left ventricular size is normal. 2. There is moderate concentric left ventricular hypertrophy. 3. Overall left ventricular systolic function is normal with, an EF between 55 - 60 %. 4. The diastolic filling pattern is normal for the age of the patient 11.38 5. Mild tricuspid regurgitation present. FIELD SERVICE ENGINEER: Vivinae Ayala RDCS
--- NOTE | 2019-11-18 13:50 | P.CRDCN ---
History of Present Illness History of present illness: HISTORY OF PRESENTING ILLNESS This is a pleasant 59-year-old male past medical history significant for coronary artery disease, hypertension, dyslipidemia and gastroesophageal reflux disease. He follows in the office with Dr. Matos. We have been asked to see in consultation for chest pain. He states he woke up yesterday around 6 AM and took his son to school around 7:30. He started feeling of discomfort left anterior chest wall that was intermittent and mild initially. As his stay went on he was doing some grocery shopping the discomfort in his chest increased in intensity and radiated to the left shoulder. Was associated with mild shortness of breath and diaphoresis. The symptoms were not improved with rest. On arrival to the emergency department he was given sublingual nitroglycerin that did not relieve his pain. He has been receiving IV morphine through the night and this is keeping him comfortable. He is seen and examined sitting up in bed in no acute distress. He recently saw his boiler assistant operator in the office and underwent a Cardiolite stress test. He walked on the treadmill for 8 minutes and 50 seconds. The nuclear imaging revealed no evidence of reversible cardiac ischemia. Ejection fraction was 58%. Prior to that in May of this year he u nderwent a Lexiscan stress test here that was also negative for reversible cardiac ischemia. Cardiac catheterization last performed in July 2017 revealed mild 10% obstruction noted in the midportion of the left main, 40% lesion in the proximal LAD, 85% lesion in the proximal first diagonal branch, 60% lesion in the mid circumflex artery, 20% lesion in the proximal OM, 20% lesion in the mid RCA and 20% lesion in the proximal RCA. DIAGNOSTICS EKG reveals sinus mechanism with no acute ischemic changes. Chest xray negative for an acute cardiopulmonary process. Laboratory reviewed, WBC 12.2, hemoglobin 7.2, platelets 250, d-dimer less than 0.17, sodium 136, potassium 3.8, creatinine 1.03, magnesium 1.9, cardiac enzymes negative 3, LDL 105 and HDL 38. Current cardiac medications include aspirin 81 mg daily, atorvastatin 40 mg daily, Plavix 75 mg daily, Zetia 10 mg daily, Vascepa 1 g twice a day, losartan 100 mg daily, Toprol 50 mg daily and hydrochlorothiazide 50 mg daily. REVIEW OF SYSTEMS At the time of my exam: CONSTITUTIONAL: Denies fever or chills. CARDIOVASCULAR: Denies chest pain, shortness of breath, orthopnea, PND or palpitations. RESPIRATORY: Denies cough. GASTROINTESTINAL: Denies abdominal pain, diarrhea, constipation, nausea or vomiting. MUSCULOSKELETAL: Denies myalgias. NEUROLOGIC: Denies numbness, tingling or weakness. ENDOCRINE: Denies fatigue, weight change, polydipsia or polyurina. GENITOURINARY: Denies burning, hematuria or urgency with micturation. HEMATOLOGIC: Denies history of anemia or bleeding. PHYSICAL EXAMINATION Blood pressure 143/89 heart rate 96 afebrile and maintaining oxygen saturation on room air. CONSTITUTIONAL: No apparent distress. HEENT: Head is normocephalic. Pupils are equal, round. Sclerae anicteric. Mucous membranes of the mouth are moist. No JVD. No carotid bruit. CHEST EXAMINATION: Lungs are clear to auscultation. No chest wall tenderness is noted on palpation or with deep breathing. HEART EXAMINATION: Regular rate and rhythm. S1, S2 heard. No murmurs, gallops or rub. ABDOMEN: Soft, nontender. Positive bowel sounds. EXTREMITIES: 2+ peripheral pulses, no lower extremity edema and no calf tenderness. NEUROLOGIC EXAMINATION: Patient is awake, alert and oriented x3. ASSESSMENT Chest pain, atypical. An acute coronary event has been ruled out. Leukocytosis Nonobstructive coronary artery disease on maximum medical therapy Hypertension Dyslipidemia PLAN An acute coronary event has been ruled out. The patient has had 2 negative stress test in the previous 6 months. We will check an echocardiogram with Doppler study to assess cardiac structure and function. If echocardiogram is normal he may be discharged from a cardiac perspective. Follow-up closely with his primary boiler assistant operator. Thank you kindly for this consultation. Nurse Practitioner note has been reviewed, I agree with a documented findings and plan of care. Patient was seen and examined. Past Medical History Past Medical History: GERD/Reflux, Hypertension, Myocardial Infarction ([place]) Additional Past Medical History / Comment(s): joint pain, chronic pain, [place] 2010 Last Myocardial Infarction Date:: 2010 History of Any Multi-Drug Resistant Organisms: None Reported Past Surgical History: Cholecystectomy Additional Past Surgical History / Comment(s): back fusion, right wrist tendon repair Past Psychological History: Depression Smoking Status: Never smoker Past Alcohol Use History: Rare Past Drug Use History: None Reported Medications and Allergies Home Medications Medication Instructions Recorded Confirmed Type Aspirin EC [Ecotrin Low Dose] 81 mg PO DAILY 01/19/18 11/17/19 History Atorvastatin [Lipitor] 40 mg PO DAILY 01/19/18 11/17/19 History Clopidogrel [Plavix] 75 mg PO DAILY 01/19/18 11/17/19 History Metoprolol Succinate (ER) [Toprol 50 mg PO DAILY 01/19/18 11/17/19 History Xl] Amitriptyline HCl [Elavil] 25 mg PO HS 02/16/19 11/17/19 History DULoxetine HCL [Cymbalta] 30 mg PO DAILY 02/16/19 11/17/19 History Icosapent Ethyl [Vascepa] 1 gm PO BID 02/16/19 11/17/19 History Metaxalone [Skelaxin] 800 mg PO TID 02/16/19 11/17/19 History Orphenadrine Citrate [Orphenadrine 100 mg PO BID PRN 02/16/19 11/17/19 History Citrate ER] Ezetimibe [Zetia] 10 mg PO DAILY 11/17/19 11/17/19 History HYDROcodone/APAP 5-325MG [[place] 1 tab PO DAILY PRN 11/17/19 11/17/19 History 5-325] Losartan Potassium 100 mg PO DAILY 11/17/19 11/17/19 History [place]-3 Fatty Acids/Fish Oil [Fish 2 cap PO DAILY 11/17/19 11/17/19 History Oil 1,000 mg Softgel] Pregabalin [Lyrica] 100 mg PO BID 11/17/19 11/17/19 History Sildenafil Citrate 50 mg PO DAILY PRN 11/17/19 11/17/19 History hydroCHLOROthiazide [Hydrodiuril] 50 mg PO DAILY 11/17/19 11/17/19 History Allergies Allergy/AdvReac Type Severity Reaction Status Date / Time No Known Allergies Allergy Verified 11/17/19 16:39 Physical Exam Vitals: Vital Signs Temp Pulse Pulse Resp BP BP Pulse Ox 11/18/19 07:58 97.9 F 96 14 143/89 98 11/18/19 02:51 97.4 F L 91 135/79 97 11/18/19 02:40 97.4 F L 100 135/79 97 11/17/19 20:05 98.3 F 101 H 140/85 97 11/17/19 17:55 99 11/17/19 17:31 104 H 14 116/76 98 11/17/19 17:15 98.5 F 11/17/19 16:43 109 H 18 123/81 96 11/17/19 16:08 114 H 18 116/76 97 11/17/19 15:27 120 H 18 93/70 96 11/17/19 15:10 140 H 18 92/72 96 11/17/19 15:05 133 H 18 131/93 99 11/17/19 14:28 98.1 F 122 H 18 121/82 98 Intake and Output 11/17/19 11/18/19 11/18/19 22:59 06:59 14:59 Intake Total 250 Output Total 0 Balance 250 0 Intake: Oral 250 Output: Urine 0 Other: Voiding Method Toilet Toilet # Voids 1 0 Weight 95.254 kg Results 11/17/19 15:07 11/17/19 15:07 Cardiac Enzymes 11/17/19 11/17/19 11/17/19 Range/Units 15:07 15:07 17:54 AST 23 (17-59) U/L Troponin I <0.012 <0.012 (0.000-0.034) ng/mL 11/17/19 Range/Units 20:53 AST (17-59) U/L Troponin I <0.012 (0.000-0.034) ng/mL Coagulation 11/17/19 Range/Units 15:07 PT 9.7 (9.0-12.0) sec APTT 23.2 (22.0-30.0) sec CBC 11/17/19 Range/Units 15:07 WBC 12.2 H (3.8-10.6) k/uL RBC 5.53 (4.30-5.90) m/uL Hgb 17.2 (13.0-17.5) gm/dL Hct 50.9 (39.0-53.0) % Plt Count 250 (150-450) k/uL Comprehensive Metabolic Panel 11/17/19 Range/Units 15:07 Sodium 136 L (137-145) mmol/L Potassium 3.8 (3.5-5.1) mmol/L Chloride 102 (98-107) mmol/L Carbon Dioxide 25 (22-30) mmol/L BUN 26 H (9-20) mg/dL Creatinine 1.03 (0.66-1.25) mg/dL Glucose 123 H (74-99) mg/dL Calcium 9.6 (8.4-10.2) mg/dL AST 23 (17-59) U/L ALT 31 (4-49) U/L Alkaline Phosphatase 73 (38-126) U/L Total Protein 7.0 (6.3-8.2) g/dL Albumin 4.6 (3.5-5.0) g/dL Current Medications Generic Name Dose Route Start Last Admin Trade Name Freq PRN Reason Stop Dose Admin Hydrocodone Bitart/Acetaminophen 1 each 11/17/19 17:58 Hydrocodone/Apap 5-325mg 1 Each Tab PO DAILY PRN Pain Amitriptyline HCl 25 mg 11/17/19 21:00 11/17/19 21:33 Amitriptyline Hcl 25 Mg Tab PO 25 mg HS [facility] Administration Aspirin 325 mg 11/18/19 09:00 Aspirin 325 Mg Tab PO DAILY [facility] Aspirin 81 mg 11/18/19 09:00 Aspirin 81 Mg PO DAILY [facility] Atorvastatin Calcium 40 mg 11/18/19 09:00 Atorvastatin 40 Mg Tab PO DAILY [facility] Clopidogrel Bisulfate 75 mg 11/18/19 09:00 Clopidogrel 75 Mg Tab PO DAILY [facility] Cyclobenzaprine HCl 10 mg 11/17/19 17:58 Cyclobenzaprine 10 Mg Tab PO BID PRN Muscle Spasm Duloxetine HCl 30 mg 11/18/19 09:00 Duloxetine Hcl 30 Mg Capsule.Dr PO DAILY [facility] Ezetimibe 10 mg 11/18/19 09:00 Ezetimibe 10 Mg Tab PO DAILY [facility] Hydrochlorothiazide 50 mg 11/18/19 09:00 Hydrochlorothiazide 50 Mg Tab PO DAILY [facility] Losartan Potassium 100 mg 11/18/19 09:00 Losartan 50 Mg Tab PO DAILY [facility] Metoprolol Succinate 50 mg 11/18/19 09:00 Metoprolol Succinate (Er) 50 Mg Tab.Er.24h PO DAILY [facility] Morphine Sulfate 4 mg 11/17/19 17:17 11/18/19 02:54 Morphine Sulfate 2 Mg/Ml Syringe IVP 4 mg Q4H PRN Administration Pain/Discomfort Nitroglycerin 0.4 mg 11/17/19 16:12 Nitroglycerin Sl Tabs 0.4 Mg Tab SUBLINGUAL Q5M PRN Chest Pain Nitroglycerin 1 inch 11/17/19 18:00 11/18/19 06:04 Nitroglycerin Oint 1 Inch/Gm Packet TOPICAL 1 inch Q6HR JYOTI Administration N(Icosapent Ethyl [ 1 gm 11/17/19 21:00 11/17/19 20:57 Vascepa] 0.5 Gm PO Not Given Capsule) BID JYOTI Pregabalin 100 mg 11/17/19 21:00 11/17/19 20:57 Pregabalin 100 Mg Cap PO 100 mg BID JYOTI Administration Intake and Output 11/17/19 11/18/19 11/18/19 22:59 06:59 14:59 Intake Total 250 Output Total 0 Balance 250 0 Intake: Oral 250 Output: Urine 0 Other: Voiding Method Toilet Toilet # Voids 1 0 Weight 95.254 kg 11/17/19 15:07 11/17/19 15:07
[2019-11-18 15:36] VITALS: BP 124/75; PULSE 85; TEMP 97.7
--- NOTE | 2019-11-18 17:19 | HP ---
HISTORY AND PHYSICAL This is a 59-year-old white male with history of coronary artery disease, hypertension, dyslipidemia, GERD, atypical chest pain, like a pressure, worse when he takes a real deep breath. He has been more congested with some phlegm. Cardiology saw him. He has a history of mild obstruction, 85% lesion in the proximal first diagonal branch, 60 in the circumflex, 20 in the proximal . EKG showed no ischemia. Labs were reviewed. Negative D-dimer. Negative chest x-ray. REVIEW OF SYSTEMS: Fourteen-point review of systems negative except for mentioned in HPI. PHYSICAL EXAMINATION: Blood pressure is 140s over 80s, heart rate 80s to 90. HEENT: Normocephalic, atraumatic. HEART: S1, S2. ABDOMEN: Soft, nontender. EXTREMITIES: No cyanosis, clubbing, edema. NEUROLOGIC: Alert and oriented x3. ASSESSMENT: 1. Atypical chest pain. Acute coronary event has been ruled out. 2. Leukocytosis, unclear etiology. 3. Nonobstructive coronary artery disease. 4. Hypertension. 5. Dyslipidemia. Two negative stress tests in the previous 6 months. Echo Doppler has been done. Cleared by dispensing audiologist. Will discharge him home to follow up as an outpatient. MMODL / IJN: [id number] /
[2019-11-19] MEDS ORDERED: ATORVASTATIN 80 MG TAB PO SCH (09:00)
== END 2019-11-18 16:55 | disposition home or self-care (01) ==
LOC: EC 14:27 → 3NCARDOBS 16:12
PROVIDERS: ADMIT Family Medicine; ATTEND Family Medicine
DX: R07.89 Other chest pain (principal); R06.02 Shortness of breath; D72.829 Elevated white blood cell count, unspecified; E78.5 Hyperlipidemia, unspecified; I10 Essential (primary) hypertension; I25.10 Atherosclerotic heart disease of native coronary artery without angina pectoris; I25.2 Old myocardial infarction; K21.9 Gastro-esophageal reflux disease without esophagitis; Z79.02 Long term (current) use of antithrombotics/antiplatelets; Z79.82 Long term (current) use of aspirin; Z79.899 Other long term (current) drug therapy; Z98.1 Arthrodesis status
CPT/HCPCS: 93005 ×2; 96376; 96374; 99285; 36415; 93306; 85379; 80061; 80053; 83735; 84484; 85025; 85610; 85730; 71046; G0378 ×2; J2270 ×3

== ENCOUNTER 2019-11-26 18:58 | Observation (INO) | payer OTHER ==
--- NOTE | 2019-11-26 19:10 | ED ---
Chest Pain HPI - General Chief Complaint: Chest Pain Stated Complaint: chest pain Time Seen by Provider: 11/26/19 19:08 Source: patient, RN notes reviewed, old records reviewed Mode of arrival: ambulatory Limitations: no limitations - History of Present Illness Initial Comments: This is a 59-year-old male DF for evaluation patient Dese for evaluation regards to chest pain. History of heart disease history of MS history of high blood pressure. Patient has a few days of episodic chest pain that is more persistent today. No fevers no shortness of breath no diaphoresis. Mildly worse with exertion MD Complaint: chest pain -: days(s) Onset: during exertion Pain Location: left chest Pain Radiation: none, LUE Severity: mild Severity scale (1-10): 2 Quality: heaviness Consistency: intermittent Improves With: nothing Worsens With: nothing Anginal Symptoms: dyspnea Treatments Prior to Arrival: none - Related Data Home Medications Medication Instructions Recorded Confirmed Aspirin EC [Ecotrin Low Dose] 81 mg PO DAILY 01/19/18 11/26/19 Atorvastatin [Lipitor] 40 mg PO HS 01/19/18 11/26/19 Clopidogrel [Plavix] 75 mg PO DAILY 01/19/18 11/26/19 Metoprolol Succinate (ER) [Toprol 50 mg PO HS 01/19/18 11/26/19 Xl] Amitriptyline HCl [Elavil] 25 mg PO HS PRN 02/16/19 11/26/19 DULoxetine HCL [Cymbalta] 30 mg PO DAILY 02/16/19 11/26/19 Metaxalone [Skelaxin] 800 mg PO TID 02/16/19 11/26/19 Orphenadrine Citrate [Orphenadrine 100 mg PO BID PRN 02/16/19 11/26/19 Citrate ER] Ezetimibe [Zetia] 10 mg PO DAILY 11/17/19 11/26/19 HYDROcodone/APAP 5-325MG [[place] 1 tab PO DAILY PRN 11/17/19 11/26/19 5-325] Losartan Potassium 100 mg PO DAILY 11/17/19 11/26/19 [place]-3 Fatty Acids/Fish Oil [Fish 1 cap PO BID 11/17/19 11/26/19 Oil 1,000 mg Softgel] Pregabalin [Lyrica] 100 mg PO BID 11/17/19 11/26/19 Sildenafil Citrate 50 mg PO DAILY PRN 11/17/19 11/26/19 hydroCHLOROthiazide [Hydrodiuril] 50 mg PO DAILY 11/17/19 11/26/19 Tamsulosin HCl [Flomax] 0.4 mg PO DAILY 11/26/19 11/26/19 Testosterone Cypionate 200 mg IM Q14D 11/26/19 11/26/19 [Depo-Testosterone] Allergies Allergy/AdvReac Type Severity Reaction Status Date / Time No Known Allergies Allergy Verified 11/26/19 19:34 Review of Systems ROS Statement: Those systems with pertinent positive or pertinent negative responses have been documented in the HPI. ROS Other: All systems not noted in ROS Statement are negative. EKG Findings - EKG Comments: EKG Findings:: EKG is sinus tach 101 GA 132 QRS 74 QTc 430 Past Medical History Past Medical History: GERD/Reflux, Hypertension, Myocardial Infarction (MS) Additional Past Medical History / Comment(s): joint pain, chronic pain, MS 2010 Last Myocardial Infarction Date:: 2010 History of Any Multi-Drug Resistant Organisms: None Reported Past Surgical History: Cholecystectomy Additional Past Surgical History / Comment(s): back fusion, right wrist tendon repair Past Psychological History: Depression Smoking Status: Never smoker Past Alcohol Use History: Rare Past Drug Use History: None Reported General Exam Limitations: no limitations General appearance: alert, in no apparent distress Head exam: Present: atraumatic, normocephalic, normal inspection Eye exam: Present: normal appearance, PERRL, EOMI. Absent: scleral icterus, conjunctival injection, periorbital swelling ENT exam: Present: normal exam, mucous membranes moist Neck exam: Present: normal inspection. Absent: tenderness, meningismus, lymphadenopathy Respiratory exam: Present: normal lung sounds bilaterally. Absent: respiratory distress, wheezes, rales, rhonchi, stridor Cardiovascular Exam: Present: regular rate, normal rhythm, normal heart sounds. Absent: systolic murmur, diastolic murmur, rubs, gallop, clicks GI/Abdominal exam: Present: soft, normal bowel sounds. Absent: distended, tenderness, guarding, rebound, rigid Extremities exam: Present: normal inspection, full ROM, normal capillary refill. Absent: tenderness, pedal edema, joint swelling, calf tenderness Back exam: Present: normal inspection Neurological exam: Present: alert, oriented X3, CN II-XII intact Psychiatric exam: Present: normal affect, normal mood Skin exam: Present: warm, dry, intact, normal color. Absent: rash Course Vital Signs 11/26/19 18:59 Temperature 97.6 F Pulse Rate 66 Respiratory 18 Rate Blood Pressure 95/60 O2 Sat by Pulse 98 Oximetry - Reevaluation(s) Reevaluation #1: 11/26/19 19:33 Medical record is reviewed Reevaluation #2: 11/26/19 20:56 Patient still with episodic chest pain sweating here in the ER Reevaluation #3: 11/26/19 20:56 Spoke with patient regarding findings, questions answered Chest Pain MDM - MDM 59 male DF for evaluation patient noticed facility does have history of chest pain and angina coming in for severe chest pain diaphoresis and shortness of breath, will admit for cardiology to evaluate Critical Care Time Critical Care Time: Yes Total Critical Care Time: 31 Disposition Clinical Impression: Chest pain, Nausea and vomiting Disposition: ADMITTED IP TO THIS [facility] Condition: Fair Is patient prescribed a controlled substance at d/c from ED?: No Referrals: Markell Rea MD [Primary Care Provider] - 1-2 days
[2019-11-26 20:05] LABS: Basophils # (A) 0.1 k/uL (0-0.2); Basophils % (A) 1 %; Eosinophils # (A) 0.1 k/uL (0-0.7); Eosinophils % (A) 1 %; HCT 48.3 % (39.0-53.0); HGB 16.3 gm/dL (13.0-17.5); Lymphocytes % (A) 15 %; MCH 30.7 pg (25.0-35.0); MCHC 33.8 g/dL (31.0-37.0); MCV 90.8 fL (80.0-100.0); Mean Platelet Volume 7.9; Monocytes # (A) 0.7 k/uL (0-1.0); Monocytes % (A) 5 %; Neutrophils # (A) 10.6 k/uL (1.3-7.7); Neutrophils % (A) 77 %; Platelet Count 234 k/uL (150-450); RBC 5.32 m/uL (4.30-5.90); RDW 12.8 % (11.5-15.5); WBC 13.7 k/uL (3.8-10.6)
--- NOTE | 2019-11-26 20:10 | XR ---
EXAMINATION TYPE: XR chest 2V DATE OF EXAM: 11/26/2019 COMPARISON: 11/17/2019 HISTORY: Chest pain TECHNIQUE: 2 views FINDINGS: Heart and mediastinum are normal. Lungs are clear. Diaphragm is normal. Bony thorax is norm al. There are chest leads. IMPRESSION: Normal chest. No change.
[2019-11-26 20:14] LABS: Potassium 4.2 mmol/L (3.5-5.1); Total Bilirubin 0.7 mg/dL (0.2-1.3); Total Protein 6.1 g/dL (6.3-8.2)
[2019-11-26] MEDS ORDERED: NITROGLYCERIN SL TABS 0.4 MG TAB SUBLINGUAL PRN (20:54)
[2019-11-26 20:55] LABS: INR 0.9 (<1.2)
[2019-11-26 20:56] LABS: Partial Thromboplastin Time 24.1 sec (22.0-30.0); Prothrombin Time 9.8 sec (9.0-12.0)
[2019-11-26] MEDS ORDERED: MORPHINE SULFATE 4 MG/ML SYRINGE IVP STA (21:27)
[2019-11-26] MEDS: SODIUM CHLORIDE 0.9% 1,000 ML IV SCH (21:31)
[2019-11-26] MEDS ORDERED: HYDROcodone/APAP 5-325MG 1 EACH TAB PO PRN (22:51)
[2019-11-26] MEDS ORDERED: AMITRIPTYLINE HCL 25 MG TAB PO PRN (23:00)
[2019-11-26] MEDS: ATORVASTATIN 40 MG TAB PO SCH (23:28)
[2019-11-26] MEDS: METOPROLOL SUCCINATE (ER) 50 MG TAB.ER.24H PO SCH (23:28)
--- NOTE | 2019-11-26 23:29 | HP ---
HISTORY AND PHYSICAL This patient is a 59-year-old white male who came to the ER for chest pain. History of high blood pressure and history of myocardial infarction. A few days of chest pain, more episodic but persistent, more today. No fever. No shortness of breath. Worse with exertion. Left side of the chest, mild 2/10 heaviness. Improved or worsened with nothing. Associated with shortness of breath. HOME MEDICINES: 1. Aspirin 81 mg daily. 2. Lipitor 40 daily. 3. Plavix 75 mg daily. 4. Toprol-XL 50 daily. 5. Elavil 25 at bedtime. 6. Cymbalta 30 daily. 7. Skelaxin 800 t.i.d. 8. 100 mg b.i.d. 9. Zetia 10 mg daily. 10.[place] 5/325 daily. 11.Losartan 100 mg daily. 12.Lyrica 100 mg b.i.d. 13. 50 mg daily. 14.HydroDIURIL mg daily. 15.Flomax 0.4 mg daily. 16.Testosterone injections every 14 days. ALLERGIES: NEGATIVE. REVIEW OF SYSTEMS: Fourteen-point review of systems otherwise negative. PAST MEDICAL HISTORY: GERD, hypertension, myocardial infarction, cholecystectomy, back fusion, right wrist tendon repair, depression. He does not smoke. PHYSICAL EXAMINATION: Vital signs are stable. Afebrile. Temperature 97.6, pulse 60 to 66, respiratory rate 18 to 20, blood pressure 90s over 60s, oxygenation 98 HEENT: Normocephalic, atraumatic. LUNGS: Clear. CARDIOVASCULAR: S1, S2. No murmurs, rubs, gallops. GI: Soft. EXTREMITIES: Normal range of motion. No calf tenderness. HEMATOLOGIC: Negative [place]. PSYCH: Fair mood and affect. SKIN: Warm, dry, intact. ASSESSMENT: 1. Atypical chest pain. 2. History of coronary artery disease. 3. Angina coming in for severe chest pain, diaphoresis, shortness of breath. Rule out myocardial infarction. Continue home medications. Possibly rule out GI source. Please see further orders. MMODL / IJN: [id number] /
[2019-11-27] MEDS: MORPHINE SULFATE 4 MG/ML SYRINGE IVP PRN ×5 (00:46→20:08)
[2019-11-27 04:18] LABS: Cholesterol 134 mg/dL (<200); HDL Cholesterol 30 mg/dL (40-60); LDL Cholesterol,Calculated 45 mg/dL (0-99); Triglycerides 293 mg/dL (<150)
[2019-11-27] MEDS: SODIUM CHLORIDE 0.9% 1,000 ML IV SCH ×2 (06:36→13:45)
[2019-11-27] MEDS: EZETIMIBE 10 MG TAB PO SCH (08:11)
[2019-11-27] MEDS: DULoxetine HCL 30 MG CAPSULE.DR PO SCH (08:11)
[2019-11-27] MEDS: LOSARTAN 50 MG TAB PO SCH (08:11)
[2019-11-27] MEDS: ASPIRIN 81 MG PO SCH (08:11)
[2019-11-27] MEDS: CLOPIDOGREL 75 MG TAB PO SCH (08:11)
[2019-11-27] MEDS: TAMSULOSIN 0.4 MG CAP.ER.24H PO SCH (08:11)
[2019-11-27] MEDS: PREGABALIN 100 MG CAP PO SCH ×2 (08:12→20:08)
[2019-11-27 08:29] LABS: Albumin 3.3 g/dL (3.5-5.0); Calcium 8.2 mg/dL (8.4-10.2); Potassium 3.3 mmol/L (3.5-5.1); Total Bilirubin 0.7 mg/dL (0.2-1.3); Total Protein 5.4 g/dL (6.3-8.2)
[2019-11-27] MEDS ORDERED: ASPIRIN 325 MG TAB PO SCH (09:00)
--- NOTE | 2019-11-27 12:14 | P.CRDCN ---
History of Present Illness Consult date: 11/27/19 Requesting physician: Markell Rea Reason for Consult (text): chest pain Chief complaint: nausea, diarrhea, diaphoresis, chest pain, KENNY History of present illness: This pleasant 59-year-old gentleman with past history of CAD with cardiac catheterization last performed in July 2017 which revealed mild obstruction in the midportion of the left main with a temperature some lesion, 40% lesion in the proximal LAD, 85% lesion in the proximal first diagonal branch, 60% lesion in the mid circumflex artery, 20% lesion in the proximal OM, 20% lesion in the mid RCA in 20% lesion in the proximal RCA. Also has a history of hypertension, hyperlipidemia and GERD. He follows with Dr. Matos. He was recently hospitalized here with complaints of chest discomfort that radiated to his left shoulder with mild shortness of breath and diaphoresis that improved with rest, not improved with sublingual nitro he underwent echocardiogram at that time which revealed normal LV systolic function with ejection fraction between 55-60% and mild TR. 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 Of note he did undergo Lexiscan MPI here in May of this year which showed no evidence of reversible ischemia. 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 He presented again to the emergency department with complaints of nausea, diaphoresis, diarrhea, left upper chest pain with radiation to his left shoulder and up his left side of his neck followed by headache and blurred vision with mild shortness of breath. Troponins have been negative 3. EKG showed sinus rhythm with evidence of possible prior inferior DE, no evidence of acute ischemia, no change from previous. Vital signs have been stable. Medications at home include Elavil, Flomax, testosterone, sildenafil, orphenadrine, fish oil, hydrochlorothiazide, Lyrica, Toprol 50 mg by mouth daily at bedtime, Skelaxin, losartan 100 mg by mouth daily, hydrocodone, Zetia 10 mg by mouth daily, Cymbalta, Lipitor 40 mg by mouth daily at bedtime, aspirin 81 mg by mouth daily and Plavix 75 mg by mouth daily. Labs on admission showed sodium 135, potassium 4.2, BUN 38 and creatinine of 1.8 which are previously 26 and 1.03 with an estimated GFR of 40 was previously this is improved with hydration. Past Medical History Past Medical History: GERD/Reflux, Hypertension, Myocardial Infarction (DE) Additional Past Medical History / Comment(s): joint pain, chronic pain, [place] 2010 Last Myocardial Infarction Date:: 2010 History of Any Multi-Drug Resistant Organisms: None Reported Past Surgical History: Cholecystectomy Additional Past Surgical History / Comment(s): back fusion L5 S1, right wrist tendon repair Past Anesthesia/Blood Transfusion Reactions: No Reported Reaction Past Psychological History: Depression Smoking Status: Former smoker Past Alcohol Use History: Rare Past Drug Use History: None Reported Medications and Allergies Home Medications Medication Instructions Recorded Confirmed Type Aspirin EC [Ecotrin Low Dose] 81 mg PO DAILY 01/19/18 11/26/19 History Atorvastatin [Lipitor] 40 mg PO HS 01/19/18 11/26/19 History Clopidogrel [Plavix] 75 mg PO DAILY 01/19/18 11/26/19 History Metoprolol Succinate (ER) [Toprol 50 mg PO HS 01/19/18 11/26/19 History Xl] Amitriptyline HCl [Elavil] 25 mg PO HS PRN 02/16/19 11/26/19 History DULoxetine HCL [Cymbalta] 30 mg PO DAILY 02/16/19 11/26/19 History Metaxalone [Skelaxin] 800 mg PO TID 02/16/19 11/26/19 History Orphenadrine Citrate [Orphenadrine 100 mg PO BID PRN 02/16/19 11/26/19 History Citrate ER] Ezetimibe [Zetia] 10 mg PO DAILY 11/17/19 11/26/19 History HYDROcodone/APAP 5-325MG [[place] 1 tab PO DAILY PRN 11/17/19 11/26/19 History 5-325] Losartan Potassium 100 mg PO DAILY 11/17/19 11/26/[address] [place]-3 Fatty Acids/Fish Oil [Fish 1 cap PO BID 11/17/19 11/26/19 History Oil 1,000 mg Softgel] Pregabalin [Lyrica] 100 mg PO BID 11/17/19 11/26/19 History Sildenafil Citrate 50 mg PO DAILY PRN 11/17/19 11/26/19 History hydroCHLOROthiazide [Hydrodiuril] 50 mg PO DAILY 11/17/19 11/26/19 History Tamsulosin HCl [Flomax] 0.4 mg PO DAILY 11/26/19 11/26/19 History Testosterone Cypionate 200 mg IM Q14D 11/26/19 11/26/19 History [Depo-Testosterone] Allergies Allergy/AdvReac Type Severity Reaction Status Date / Time No Known Allergies Allergy Verified 11/26/19 19:34 Physical Exam Vitals: Vital Signs Temp Pulse Pulse Resp BP BP Pulse Ox 11/27/19 08:32 97.9 F 77 14 133/82 98 11/27/19 03:05 71 18 102/59 97 11/27/19 02:32 72 95 11/27/19 02:31 111/66 11/27/19 02:24 18 11/27/19 02:18 85 18 117/55 11/27/19 02:05 98.0 F 75 18 130/81 97 11/26/19 22:48 97.9 F 75 18 114/69 99 11/26/19 22:08 97.7 F 11/26/19 21:36 92 18 102/68 97 11/26/19 21:03 99 20 102/68 98 11/26/19 20:03 98 18 98/57 97 11/26/19 18:59 97.6 F 66 18 95/60 98 Intake and Output 11/26/19 11/27/19 11/27/19 22:59 06:59 14:59 Intake Total 1200 Balance 1200 Intake: Intake, IV Titration 1200 Amount Sodium Chloride 0.9% 1, 1200 000 ml @ 100 mls/hr IV . Q10H COUNTS INCLUDE 234 BEDS AT [facility] Rx#:[id number] Other: Voiding Method Toilet Toilet Toilet # Voids 1 2 Weight 93.894 kg PHYSICAL EXAMINATION: This is a 59-year-old male in no apparent distress at the time of my examination. VITAL SIGNS: Blood pressure 133/82, heart rate 77, respirations 14, temp 97.9F. Patient is 98 % on room air. HEENT: Head is atraumatic, normocephalic. Pupils are equal, round. Sclerae anicteric. Conjunctivae are clear. Mucous membranes of the mouth are moist. Neck is supple. There is no elevated jugular venous pressure. No carotid bruit is heard. CHEST EXAMINATION: Clear to auscultation bilaterally. No wheezes rales or rhonchi. Respirations even and nonlabored. HEART EXAMINATION: Heart regular, positive S1 and S2. No S3. No S4. No click s, rubs or murmurs. ABDOMEN: Soft, nontender. Bowel sounds are heard. No organomegaly noted. EXTREMITIES: 2+ peripheral pulses with no evidence of peripheral edema and no calf tenderness noted. NEUROLOGIC EXAMINATION: Patient is awake, alert and oriented x3. Results 11/26/19 19:44 11/27/19 07:39 Cardiac Enzymes 11/26/19 11/26/19 11/26/19 Range/Units 19:44 19:44 22:23 AST 30 (17-59) U/L Troponin I <0.012 <0.012 (0.000-0.034) ng/mL 11/27/19 11/27/19 Range/Units 01:40 07:39 AST 19 (17-59) U/L Troponin I <0.012 (0.000-0.034) ng/mL Coagulation 11/26/19 Range/Units 19:44 PT 9.8 (9.0-12.0) sec APTT 24.1 (22.0-30.0) sec Lipids 11/27/19 Range/Units 01:40 Triglycerides 293 H (<150) mg/dL Cholesterol 134 (<200) mg/dL HDL Cholesterol 30 L (40-60) mg/dL CBC 11/26/19 Range/Units 19:44 WBC 13.7 H (3.8-10.6) k/uL RBC 5.32 (4.30-5.90) m/uL Hgb 16.3 (13.0-17.5) gm/dL Hct 48.3 (39.0-53.0) % Plt Count 234 (150-450) k/uL Comprehensive Metabolic Panel 11/26/19 11/27/19 Range/Units 19:44 07:39 Sodium 135 L 134 L (137-145) mmol/L Potassium 4.2 3.3 L (3.5-5.1) mmol/L Chloride 101 101 (98-107) mmol/L Carbon Dioxide 26 30 (22-30) mmol/L BUN 38 H 30 H (9-20) mg/dL Creatinine 1.80 H 1.12 (0.66-1.25) mg/dL Glucose 134 H 104 H (74-99) mg/dL Calcium 9.0 8.2 L (8.4-10.2) mg/dL AST 30 19 (17-59) U/L ALT 32 29 (4-49) U/L Alkaline Phosphatase 58 56 (38-126) U/L Total Protein 6.1 L 5.4 L (6.3-8.2) g/dL Albumin 4.0 3.3 L (3.5-5.0) g/dL Current Medications Generic Name Dose Route Start Last Admin Trade Name Freq PRN Reason Stop Dose Admin Hydrocodone Bitart/Acetaminophen 1 each 11/26/19 22:51 Hydrocodone/Apap 5-325mg 1 Each Tab PO DAILY PRN Pain Amitriptyline HCl 25 mg 11/26/19 23:00 Amitriptyline Hcl 25 Mg Tab PO HS PRN SLEEP Aspirin 81 mg 11/27/19 09:00 11/27/19 08:11 Aspirin 81 Mg PO 81 mg DAILY JYOTI Administration Atorvastatin Calcium 40 mg 11/26/19 23:15 11/26/19 23:28 Atorvastatin 40 Mg Tab PO 40 mg HS JYOTI Administration Clopidogrel Bisulfate 75 mg 11/27/19 09:00 11/27/19 08:11 Clopidogrel 75 Mg Tab PO Not Given DAILY JYOTI Duloxetine HCl 30 mg 11/27/19 09:00 11/27/19 08:11 Duloxetine Hcl 30 Mg Capsule.Dr PO 30 mg DAILY JYOTI Administration Ezetimibe 10 mg 11/27/19 09:00 11/27/19 08:11 Ezetimibe 10 Mg Tab PO 10 mg DAILY JYOTI Administration Hydrochlorothiazide 50 mg 11/27/19 09:00 11/27/19 08:11 Hydrochlorothiazide 50 Mg Tab PO 50 mg DAILY JYOTI Administration Sodium Chloride 1,000 mls @ 100 mls/hr 11/26/19 21:00 11/27/19 06:36 Saline 0.9% IV 100 mls/hr .Q10H JYOTI Administration Losartan Potassium 100 mg 11/27/19 09:00 11/27/19 08:11 Losartan 50 Mg Tab PO 100 mg DAILY JYOTI Administration Metoprolol Succinate 50 mg 11/26/19 23:15 11/26/19 23:28 Metoprolol Succinate (Er) 50 Mg Tab.Er.24h PO 50 mg HS JYOTI Administration Morphine Sulfate 4 mg 10/02/20 22:00 11/27/19 09:48 Morphine Sulfate 4 Mg/Ml Syringe IVP 4 mg Q4HR PRN Administration Pain Nitroglycerin 0.4 mg 11/26/19 20:54 11/27/19 02:13 Nitroglycerin Sl Tabs 0.4 Mg Tab SUBLINGUAL 0.4 mg Q5M PRN Administration Chest Pain Pregabalin 100 mg 11/27/19 09:00 11/27/19 08:12 Pregabalin 100 Mg Cap PO 100 mg BID JYOTI Administration Tamsulosin HCl 0.4 mg 11/27/19 09:00 11/27/19 08:11 Tamsulosin 0.4 Mg Cap.Er.24h PO 0.4 mg DAILY JYOTI Administration Intake and Output 11/26/19 11/27/19 11/27/19 22:59 06:59 14:59 Intake Total 1200 Balance 1200 Intake: Intake, IV Titration 1200 Amount Sodium Chloride 0.9% 1, 1200 000 ml @ 100 mls/hr IV . Q10H JYOTI Rx#:[id number] Other: Voiding Method Toilet Toilet Toilet # Voids 1 2 Weight 93.894 kg 11/26/19 19:44 11/27/19 07:39 Assessment and Plan Assessment: #1 symptoms of diaphoresis, nausea, diarrhea, chest pain, headache and blurred vision, atypical of acute coronary event, troponins negative 3, no ischemic changes noted on EKG #2 history of CAD with normal stress tests x2 this year #3 hypertension #4 hyperlipidemia #5 chronic pain, follows with pain management Plan: From carpenter wooden tank erecting perspective no further cardiac workup is warranted at this time. 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 FOOD BEVERAGE MANAGER note has been reviewed, I agree with a documented findings and plan of care. Patient was seen and examined.
[2019-11-27] MEDS ORDERED: diphenhydrAMINE 25 MG CAP PO PRN (16:02)
[2019-11-27] MEDS: METOPROLOL SUCCINATE (ER) 50 MG TAB.ER.24H PO SCH (20:07)
[2019-11-27] MEDS: ATORVASTATIN 40 MG TAB PO SCH (20:07)
[2019-11-27] MEDS ORDERED: ATORVASTATIN 40 MG TAB PO SCH (21:00)
[2019-11-27] MEDS ORDERED: METOPROLOL SUCCINATE (ER) 50 MG TAB.ER.24H PO SCH (21:00)
[2019-11-28] MEDS: SODIUM CHLORIDE 0.9% 1,000 ML IV SCH (04:37)
--- NOTE | 2019-11-28 06:39 | DS ---
DISCHARGE SUMMARY A 59-year-old white male who came in with atypical chest pain and was discharged home after negative CPK and troponins x3, negative D-dimer, negative chest x-ray. He was stabilized and cleared by net front end developer. Chest x-ray was normal. DIAGNOSIS: 1. Cervical neuritis, left side. 2. Dehydration. 3. Acute prerenal insufficiency. 4. 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 5. History of coronary artery disease. 6. Dyslipidemia. MEDICATIONS: Plavix 75 daily, Lipitor 40 daily, aspirin 81 daily, nitroglycerin sublingual p.r.n., Skelaxin 800 t.i.d., amitriptyline 25 at night, 100 mg b.i.d., Doloxicam 30 daily, Zetia 10 mg daily, HydroDIURIL 50 daily, [place] 05/325 daily, losartan 100 daily, omega-3 daily, Lyrica 100 b.i.d., sildenafil 50 p.r.n., testosterone 200 mg IM Q 14 day, Flomax 0.4 mg daily. Follow up in the office in a week. Condition stable. MMODL / IJN: [id number] /
[2019-11-28] MEDS: TAMSULOSIN 0.4 MG CAP.ER.24H PO SCH (08:06)
[2019-11-28] MEDS: CLOPIDOGREL 75 MG TAB PO SCH (08:06)
[2019-11-28] MEDS: LOSARTAN 50 MG TAB PO SCH (08:06)
[2019-11-28] MEDS: DULoxetine HCL 30 MG CAPSULE.DR PO SCH (08:06)
[2019-11-28] MEDS: ASPIRIN 81 MG PO SCH (08:06)
[2019-11-28] MEDS: PREGABALIN 100 MG CAP PO SCH (08:06)
[2019-11-28] MEDS: EZETIMIBE 10 MG TAB PO SCH (08:06)
[2019-11-28 08:10] VITALS: BP 122/90; PULSE 85; RESP 16; TEMP 98.2
== END 2019-11-28 11:04 | disposition home or self-care (01) ==
LOC: EC 18:58 → 1SOBS 20:56
PROVIDERS: ADMIT Family Medicine; ATTEND Family Medicine
DX: R07.89 Other chest pain (principal); E86.0 Dehydration; N28.9 Disorder of kidney and ureter, unspecified; N17.0 Acute kidney failure with tubular necrosis; K52.9 Noninfective gastroenteritis and colitis, unspecified; I25.10 Atherosclerotic heart disease of native coronary artery without angina pectoris; I11.9 Hypertensive heart disease without heart failure; K21.9 Gastro-esophageal reflux disease without esophagitis; I10 Essential (primary) hypertension; E78.5 Hyperlipidemia, unspecified; I25.2 Old myocardial infarction; G89.29 Other chronic pain; M25.50 Pain in unspecified joint; M79.2 Neuralgia and neuritis, unspecified; Z90.49 Acquired absence of other specified parts of digestive tract; Z98.1 Arthrodesis status; Z98.890 Other specified postprocedural states; F32.9 Major depressive disorder, single episode, unspecified; Z79.02 Long term (current) use of antithrombotics/antiplatelets; Z79.82 Long term (current) use of aspirin; Z79.890 Hormone replacement therapy; Z79.899 Other long term (current) drug therapy; Z87.891 Personal history of nicotine dependence; Z79.891 Long term (current) use of opiate analgesic
CPT/HCPCS: 93005 ×2; 96361 ×2; 96376; 96374; 99291; 36415; 85379; 83880; 80061; 80053 ×2; 83690; 83735; 84132; 84484 ×2; 85025; 85610; 85730; 71046; G0378 ×3; J2270 ×2

== ENCOUNTER 2020-05-06 19:28 | Emergency (ER) | payer OTHER ==
[2020-05-06 19:42] VITALS: BP 127/82; PULSE 80; RESP 18; TEMP 98.4
[2020-05-06] MEDS ORDERED: HYDROmorphone 1 MG/ML 1 ML SYRINGE IVP STA (20:29)
--- NOTE | 2020-05-06 20:40 | ED ---
General Adult HPI - General Chief complaint: Neck Pain/Injury Stated complaint: Neck pain Time Seen by Provider: 05/06/20 20:09 Source: patient, RN notes reviewed Mode of arrival: ambulatory Limitations: no limitations - History of Present Illness Initial comments: Patient is a 59-year-old male that presents to emergency department with chronic neck pain that radiates on his whole back. He does have a history of a L5-S1 spinal fusion that he reports that potentially but did not sixth pain. He notes that he's been taking [place] around the clock as prescribed albuterol pain but is not touching anymore. He notes that on May 16 he goes in for a procedure to get a pain stimulator. He reports that he can emergency room to help get some pain relief so he can function and try to get some sleep. He denied any new injury or trauma chest pain first breath headache nausea vomiting diarrhea constipation fever fatigue chills chills. - Related Data Home Medications Medication Instructions Recorded Confirmed Aspirin EC [Ecotrin Low Dose] 81 mg PO DAILY 01/19/18 11/26/19 Atorvastatin [Lipitor] 40 mg PO HS 01/19/18 11/26/19 Clopidogrel [Plavix] 75 mg PO DAILY 01/19/18 11/26/19 Metoprolol Succinate (ER) [Toprol 50 mg PO HS 01/19/18 11/26/19 XL] Amitriptyline HCl [Elavil] 25 mg PO HS PRN 02/16/19 11/26/19 DULoxetine HCL [Cymbalta] 30 mg PO DAILY 02/16/19 11/26/19 Metaxalone [Skelaxin] 800 mg PO TID 02/16/19 11/26/19 Orphenadrine Citrate [Orphenadrine 100 mg PO BID PRN 02/16/19 11/26/19 Citrate ER] Ezetimibe [Zetia] 10 mg PO DAILY 11/17/19 11/26/19 HYDROcodone/APAP 5-325MG [[place] 1 tab PO DAILY PRN 11/17/19 11/26/19 5-325] Losartan Potassium 100 mg PO DAILY 11/17/19 11/26/19 [place]-3 Fatty Acids/Fish Oil [Fish 1 cap PO BID 11/17/19 11/26/19 Oil 1,000 mg Softgel] Pregabalin [Lyrica] 100 mg PO BID 11/17/19 11/26/19 Sildenafil Citrate 50 mg PO DAILY PRN 11/17/19 11/26/19 hydroCHLOROthiazide [Hydrodiuril] 50 mg PO DAILY 11/17/19 11/26/19 Tamsulosin HCl [Flomax] 0.4 mg PO DAILY 11/26/19 11/26/19 Testosterone Cypionate 200 mg IM Q14D 11/26/19 11/26/19 [Depo-Testosterone] Previous Rx's Medication Instructions Recorded Nitroglycerin Sl Tabs [Nitrostat] 0.4 mg SUBLINGUAL Q5M PRN tab 11/27/19 Allergies Allergy/AdvReac Type Severity Reaction Status Date / Time No Known Allergies Allergy Verified 05/06/20 19:42 Review of Systems ROS Statement: Those systems with pertinent positive or pertinent negative responses have been documented in the HPI. ROS Other: All systems not noted in ROS Statement are negative. Past Medical History Past Medical History: GERD/Reflux, Hypertension, Myocardial Infarction ([place]) Additional Past Medical History / Comment(s): joint pain, chronic pain, [place] 2010 Last Myocardial Infarction Date:: 2010 History of Any Multi-Drug Resistant Organisms: None Reported Past Surgical History: Cholecystectomy Additional Past Surgical History / Comment(s): back fusion L5 S1, right wrist tendon repair Past Anesthesia/Blood Transfusion Reactions: No Reported Reaction Past Psychological History: Depression Smoking Status: Former smoker Past Alcohol Use History: Rare Past Drug Use History: None Reported General Exam Limitations: no limitations General appearance: alert, in no apparent distress Head exam: Present: atraumatic, normocephalic, normal inspection Eye exam: Present: normal appearance, PERRL, EOMI. Absent: scleral icterus, conjunctival injection, periorbital swelling ENT exam: Present: normal exam, mucous membranes moist Neck exam: Present: normal inspection. Absent: tenderness, meningismus, lymphadenopathy Respiratory exam: Present: normal lung sounds bilaterally. Absent: respiratory distress, wheezes, rales, rhonchi, stridor Cardiovascular Exam: Present: regular rate, normal rhythm, normal heart sounds. Absent: systolic murmur, diastolic murmur, rubs, gallop, clicks GI/Abdominal exam: Present: soft, normal bowel sounds. Absent: distended, tenderness, guarding, rebound, rigid Extremities exam: Present: normal inspection, full ROM, normal capillary refill. Absent: tenderness, pedal edema, joint swelling, calf tenderness Back exam: Present: normal inspection. Absent: tenderness Neurological exam: Present: alert, oriented X3, CN II-XII intact Psychiatric exam: Present: normal affect, normal mood Skin exam: Present: warm, dry, intact, normal color. Absent: rash Course Vital Signs 05/06/20 19:39 Temperature 98.4 F Pulse Rate 80 Respiratory 18 Rate Blood Pressure 127/82 O2 Sat by Pulse 98 Oximetry Medical Decision Making - Medical Decision Making 59-year-old male complaining of chronic neck pain that radiates was back. Due to chronicity of issue patient only stated that he needed some pain medication covert help get some sleep tonight. 2 mg of Dilaudid ordered. Case discussed with Dr. Landeros, patient to discharge home. Disposition Clinical Impression: Chronic neck pain, Chronic back pain Disposition: HOME SELF-CARE Condition: Stable Instructions (If sedation given, give patient instructions): Chronic Pain (ED) Additional Instructions: Please return to the Emergency Department if symptoms worsen or any other concerns. Continue to take at home pain medications as prescribed for maintenance. Follow-up with primary care in 1-2 days, discuss possible use of gabapentin along with [place] to help with pain until stimulator surgery. Is patient prescribed a controlled substance at d/c from ED?: No Referrals: Markell Rea MD [Primary Care Provider] - 1-2 days Time of Disposition: 21:17
== END 2020-05-06 21:52 | disposition home or self-care (01) ==
LOC: EC 19:28
DX: M54.2 Cervicalgia (principal); I10 Essential (primary) hypertension; K21.9 Gastro-esophageal reflux disease without esophagitis; F32.9 Major depressive disorder, single episode, unspecified; I25.2 Old myocardial infarction; Z79.82 Long term (current) use of aspirin; Z79.899 Other long term (current) drug therapy; Z87.891 Personal history of nicotine dependence; Z79.02 Long term (current) use of antithrombotics/antiplatelets
CPT/HCPCS: 99283; 96374; J1170

== ENCOUNTER 2020-05-20 16:39 | Observation (INO) | payer OTHER ==
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
[2020-05-20] MEDS ORDERED: METOCLOPRAMIDE 5 MG/ML 2 ML VIAL IVP STA (18:35)
[2020-05-20] MEDS ORDERED: diphenhydrAMINE 50 MG/ML 1 ML VIAL IVP STA (18:35)
[2020-05-20] MEDS ORDERED: SODIUM CHLORIDE 0.9% 1,000 ML IV STA (18:35)
[2020-05-20] MEDS ORDERED: MAGNESIUM SULFATE-D5W PMX 1 GM in DEXTROSE/WATER 1 100ML.BAG IVPB ONE (18:35)
[2020-05-20] MEDS ORDERED: ACETAMINOPHEN TAB 325 MG TAB PO STA (18:35)
[2020-05-20] MEDS ORDERED: DEXAMETHASONE SOD PHOSPHATE 10 MG/ML 1 ML VIAL IV STA (18:36)
[2020-05-20 19:06] LABS: Basophils % (A) 0 %; Eosinophils # (A) 0.1 k/uL (0-0.7); Eosinophils % (A) 1 %; HCT 43.5 % (39.0-53.0); HGB 16.1 gm/dL (13.0-17.5); Lymphocytes # (A) 1.8 k/uL (1.0-4.8); Lymphocytes % (A) 23 %; MCHC 36.9 g/dL (31.0-37.0); MCV 86.7 fL (80.0-100.0); Monocytes # (A) 0.4 k/uL (0-1.0); Monocytes % (A) 5 %; Neutrophils # (A) 5.6 k/uL (1.3-7.7); Neutrophils % (A) 70 %; Platelet Count 241 k/uL (150-450); RBC 5.02 m/uL (4.30-5.90); RDW 12.8 % (11.5-15.5)
--- NOTE | 2020-05-20 19:13 | XR ---
EXAMINATION TYPE: XR chest 1V portable DATE OF EXAM: 05/20/2020 COMPARISON: 11/26/2019. HISTORY: Shortness of breath. TECHNIQUE: Single frontal view of the chest is obtained. FINDINGS: There is no focal air space opacity, pleural effusion, or pneumothorax seen. The cardiac silhouette size is mildly enlarged. The osseous structures are intact. IMPRESSION: No acute process.
[2020-05-20 19:18] LABS: ALT 25 U/L (4-49); AST 23 U/L (17-59); African American GFR (CKD) >90 (>60 ml/min/1.73 sqM); Alkaline Phosphatase 96 U/L (38-126); Anion Gap 7 mmol/L; Blood Urea Nitrogen 21 mg/dL (9-20); C Reactive Protein <5.0 mg/L (<10.0); Carbon Dioxide 26 mmol/L (22-30); Chloride 104 mmol/L (98-107); Glucose 90 mg/dL (74-99); LDH 398 U/L (313-618); Magnesium 2.1 mg/dL (1.6-2.3); Non-African American GFR(CKD) >90 (>60 ml/min/1.73 sqM); Potassium 4.1 mmol/L (3.5-5.1); Sodium 137 mmol/L (137-145); Total Bilirubin 0.6 mg/dL (0.2-1.3); Total Protein 6.4 g/dL (6.3-8.2)
[2020-05-20 19:19] LABS: D-Dimer 0.2 mg/L FEU (<0.60); INR 0.9 (<1.2); Partial Thromboplastin Time 24.1 sec (22.0-30.0); Prothrombin Time 10.2 sec (9.0-12.0)
--- NOTE | 2020-05-20 19:31 | CT ---
EXAM: CT brain wo con CLINICAL HISTORY: Headache. COMPARISON: None TECHNIQUE: Contiguous axial noncontrast images of the brain were obtained. Coronal and sagittal refor mats were generated and reviewed. Automated dose control was used for this exam. FINDINGS: There is no evidence for intracranial hemorrhage, mass effect or midline shift. White matter is gross ly preserved. Ventricular size and configuration is within normal limits for degree of parenchymal volume. The paranasal sinuses demonstrate minimal disease. The mastoid air cells are clear. No evidence for calvarial fracture. IMPRESSION: No acute intracranial abnormality.
[2020-05-20] MEDS ORDERED: NALOXONE 0.4 MG/ML 1 ML VIAL IV PRN (20:09)
[2020-05-20] MEDS ORDERED: ASPIRIN 81 MG PO STA (20:12)
[2020-05-20] MEDS ORDERED: KETOROLAC 15 MG/ML 1 ML VIAL IVP STA (20:13)
[2020-05-20] MEDS: PREGABALIN 100 MG CAP PO SCH (22:23)
[2020-05-20] MEDS: HYDROcodone/APAP 5-325MG 1 EACH TAB PO SCH (23:55)
[2020-05-21] MEDS: PREGABALIN 100 MG CAP PO SCH ×2 (09:17→20:34)
[2020-05-21] MEDS: LOSARTAN 50 MG TAB PO SCH (09:17)
[2020-05-21] MEDS: DULoxetine HCL 30 MG CAPSULE.DR PO SCH (09:18)
[2020-05-21] MEDS: METOPROLOL SUCCINATE (ER) 50 MG TAB.ER.24H PO SCH (09:18)
[2020-05-21] MEDS: ASCORBIC ACID 500 MG TAB PO SCH (09:18)
[2020-05-21] MEDS: CYANOCOBALAMIN 500 MCG TAB PO SCH (09:18)
[2020-05-21] MEDS: HYDROcodone/APAP 5-325MG 1 EACH TAB PO SCH ×2 (09:19→20:34)
[2020-05-21] MEDS: ATORVASTATIN 40 MG TAB PO SCH (09:20)
[2020-05-21] MEDS: TAMSULOSIN 0.4 MG CAP.ER.24H PO SCH (09:20)
[2020-05-21] MEDS: CLOPIDOGREL 75 MG TAB PO SCH (09:20)
[2020-05-21] MEDS: EZETIMIBE 10 MG TAB PO SCH (09:21)
[2020-05-21] MEDS: ZINC SULFATE 220 MG CAP PO SCH (09:21)
[2020-05-21 09:49] LABS: Basophils % (A) 0 %; Eosinophils % (A) 0 %; HCT 41.7 % (39.0-53.0); HGB 14.7 gm/dL (13.0-17.5); Lymphocytes % (A) 10 %; MCH 30.6 pg (25.0-35.0); MCHC 35.4 g/dL (31.0-37.0); MCV 86.6 fL (80.0-100.0); Mean Platelet Volume 8.2; Monocytes # (A) 0.3 k/uL (0-1.0); Monocytes % (A) 3 %; Neutrophils # (A) 8.7 k/uL (1.3-7.7); Neutrophils % (A) 87 %; Platelet Count 265 k/uL (150-450); RBC 4.81 m/uL (4.30-5.90); RDW 12.8 % (11.5-15.5)
[2020-05-21 10:05] LABS: African American GFR (CKD) >90 (>60 ml/min/1.73 sqM); Anion Gap 9 mmol/L; Blood Urea Nitrogen 25 mg/dL (9-20); Calcium 8.7 mg/dL (8.4-10.2); Carbon Dioxide 22 mmol/L (22-30); Chloride 105 mmol/L (98-107); Glucose 140 mg/dL (74-99); Non-African American GFR(CKD) >90 (>60 ml/min/1.73 sqM); Potassium 4.4 mmol/L (3.5-5.1); Sodium 136 mmol/L (137-145)
--- NOTE | 2020-05-21 11:59 | P.CRDCN ---
History of Present Illness Consult date: 05/21/20 History of present illness: CHIEF COMPLAINT: Chest pain HISTORY OF PRESENT ILLNESS: This is a 59-year-old male with a past medical history significant for coronary artery disease, hypertension, and GERD. Patient follows with Dr. Matos in [place]. We have been asked to see the patient in consultation for chest pain. Patient initially presented to the hospital secondary to shortness of breath, nausea, headache, and hallucinations. Patient was initially diagnosed with Covid on 05/11/2020. Case discussed with patient's nurse who states patient has not had any complaints of chest pain overnight or this morning. Blood pressure 135/83. Heart rate in the 70s. He is afebrile. He is on room air with oxygen saturations greater than 92%. DIAGNOSTICS: EKG reveals sinus mechanism with diffuse T-wave inversions Chest xray negative for acute process Laboratory data: WBC 10.0. Hemoglobin 14.7. Platelet count 265. D-dimer 0.20. Sodium 136. Potassium 4.4. BUN 25. Creatinine 0.81. Lactic acid 1.9. Troponins negative 3 Current home cardiac medications include hydrochlorothiazide 50 mg daily, metoprolol succinate 50 mg daily, losartan 100 mg daily, steady at 10 mg daily, Plavix 75 mg daily, Lipitor 40 mg daily Echocardiogram completed in October 2019 revealed ejection fraction 55-60% Patient underwent cardiac catheterization in July 2017 which revealed mild obstruction of the midportion of the left main, 40% lesion in the proximal LAD, 85% lesion in the proximal first diagonal branch, 60% lesion in the mid circumflex artery, 20% lesion in the proximal OM, 20% lesion in the mid RCA and 20% lesion in the proximal RCA. Patient with Lexiscan stress test in May 2019 which was negative for reversible ischemia Echocardiogram completed in October 2019 revealed ejection fraction 55-60% and mild tricuspid regurgitation REVIEW OF SYSTEMS: Thorough review of systems not completed secondary to limited evaluation/examination and due to Covid19 PHYSICAL EXAM: Thorough physical exam not completed secondary to limited evaluation/examination and due to Covid19 ASSESSMENT: Acute Covid 19 Headaches and nausea Hallucinations Coronary artery disease Hypertension Hyperlipidemia PLAN: Resume home cardiac medications Neurology consulted. Await evaluation Patient is currently stable from a cardiac perspective. He is to follow up with his primary sales operations manager upon discharge Nurse practitioner note has been reviewed by physician. Signing provider agrees with the documented findings, assessment, and plan of care. Past Medical History Past Medical History: GERD/Reflux, Hypertension, Myocardial Infarction ([place]) Additional Past Medical History / Comment(s): joint pain, chronic pain, [place] 2010, Last Myocardial Infarction Date:: 2010 History of Any Multi-Drug Resistant Organisms: None Reported Past Surgical History: Cholecystectomy, Heart Catheterization With Stent, Tonsillectomy Additional Past Surgical History / Comment(s): back fusion L5 S1, right wrist tendon repair Past Anesthesia/Blood Transfusion Reactions: No Reported Reaction Date of Last Stent Placement:: 2010 Past Psychological History: Depression Smoking Status: Never smoker Past Alcohol Use History: Rare Past Drug Use History: None Reported - Past Family History Father Family Medical History: Cancer, Coronary Artery Disease (CAD) Additional Family Medical History / Comment(s): prostate cancer Mother Family Medical History: Coronary Artery Disease (CAD) Medications and Allergies Home Medications Medication Instructions Recorded Confirmed Type Atorvastatin [Lipitor] 40 mg PO DAILY 01/19/18 05/20/20 History Clopidogrel [Plavix] 75 mg PO DAILY 01/19/18 05/20/20 History Metoprolol Succinate (ER) [Toprol 50 mg PO DAILY 01/19/18 05/20/20 History XL] DULoxetine HCL [Cymbalta] 30 mg PO DAILY 02/16/19 05/20/20 History Ezetimibe [Zetia] 10 mg PO DAILY 11/17/19 05/20/20 History HYDROcodone/APAP 5-325MG [[place] 1 tab PO BID 11/17/19 05/20/20 History 5-325] Losartan Potassium 100 mg PO DAILY 11/17/19 05/20/20 History Pregabalin [Lyrica] 100 mg PO BID 11/17/19 05/20/20 History Sildenafil Citrate 50 mg PO DAILY PRN 11/17/19 05/20/20 History hydroCHLOROthiazide [Hydrodiuril] 50 mg PO DAILY 11/17/19 05/20/20 History Tamsulosin HCl [Flomax] 0.4 mg PO DAILY 11/26/19 05/20/20 History Testosterone Cypionate 200 mg IM Q14D 11/26/19 05/20/20 History [Depo-Testosterone] Nitroglycerin Sl Tabs [Nitrostat] 0.4 mg SUBLINGUAL Q5M PRN tab 11/27/19 05/20/20 Rx Ascorbic Acid [Vitamin C] 1,000 mg PO DAILY 05/20/20 05/20/20 History Cyanocobalamin (Vitamin B-12) 1,000 mcg PO DAILY 05/20/20 05/20/20 History [Vitamin B-12] Zinc 50 mg PO DAILY 05/20/20 05/20/20 History Allergies Allergy/AdvReac Type Severity Reaction Status Date / Time No Known Allergies Allergy Verified 05/20/20 20:39 Physical Exam Vitals: Vital Signs Temp Pulse Pulse Resp BP BP Pulse Ox 05/21/20 08:00 98.4 F 74 16 135/83 95 05/21/20 04:00 98.6 F 84 16 141/84 96 05/21/20 00:00 97.8 F 89 18 138/80 95 05/20/20 21:43 98.6 F 87 18 161/100 97 05/20/20 20:00 71 18 149/88 98 05/20/20 19:26 98.6 F 74 18 170/110 99 05/20/20 17:54 18 05/20/20 16:41 99.3 F 71 18 145/87 97 Intake and Output 05/20/20 05/21/20 05/21/20 22:59 06:59 14:59 Intake Total 0 Balance 0 Intake: Oral 0 Other: Voiding Method Toilet Toilet Toilet # Voids 1 Weight 94.347 kg 94.5 kg Results 05/21/20 09:12 05/21/20 09:12 Cardiac Enzymes 05/20/20 05/20/20 05/20/20 Range/Units 18:22 18:40 22:26 AST 23 (17-59) U/L Lactate Dehydrogenase 398 (313-618) U/L Troponin I <0.012 <0.012 (0.000-0.034) ng/mL 05/21/20 Range/Units 00:20 AST (17-59) U/L Lactate Dehydrogenase (313-618) U/L Troponin I <0.012 (0.000-0.034) ng/mL Coagulation 05/20/20 Range/Units 18:40 PT 10.2 (9.0-12.0) sec APTT 24.1 (22.0-30.0) sec CBC 05/20/20 05/21/20 Range/Units 18:40 09:12 WBC 8.0 10.0 (3.8-10.6) k/uL RBC 5.02 4.81 (4.30-5.90) m/uL Hgb 16.1 14.7 (13.0-17.5) gm/dL Hct 43.5 41.7 (39.0-53.0) % Plt Count 241 265 (150-450) k/uL Comprehensive Metabolic Panel 05/20/20 05/21/20 Range/Units 18:40 09:12 Sodium 137 136 L (137-145) mmol/L Potassium 4.1 4.4 (3.5-5.1) mmol/L Chloride 104 105 (98-107) mmol/L Carbon Dioxide 26 22 (22-30) mmol/L BUN 21 H 25 H (9-20) mg/dL Creatinine 0.88 0.81 (0.66-1.25) mg/dL Glucose 90 140 H (74-99) mg/dL Calcium 9.0 8.7 (8.4-10.2) mg/dL AST 23 (17-59) U/L ALT 25 (4-49) U/L Alkaline Phosphatase 96 (38-126) U/L Total Protein 6.4 (6.3-8.2) g/dL Albumin 4.0 (3.5-5.0) g/dL Current Medications Generic Name Dose Route Start Last Admin Trade Name Freq PRN Reason Stop Dose Admin Hydrocodone Bitart/Acetaminophen 1 each 05/20/20 21:15 05/21/20 09:19 Hydrocodone/Apap 5-325mg 1 Each Tab PO 1 each BID JYOTI Administration Ascorbic Acid 1,000 mg 05/21/20 09:00 05/21/20 09:18 Ascorbic Acid 500 Mg Tab PO 1,000 mg DAILY JYOIT Administration Atorvastatin Calcium 40 mg 05/21/20 09:00 05/21/20 09:20 Atorvastatin 40 Mg Tab PO 40 mg DAILY JYOTI Administration Clopidogrel Bisulfate 75 mg 05/21/20 09:00 05/21/20 09:20 Clopidogrel 75 Mg Tab PO 75 mg DAILY JYOTI Administration Cyanocobalamin 1,000 mcg 05/21/20 09:00 05/21/20 09:18 Cyanocobalamin 500 Mcg Tab PO 1,000 mcg DAILY JYOTI Administration Duloxetine HCl 30 mg 05/21/20 09:00 05/21/20 09:18 Duloxetine Hcl 30 Mg Capsule.Dr PO 30 mg DAILY JYOTI Administration Ezetimibe 10 mg 05/21/20 09:00 05/21/20 09:21 Ezetimibe 10 Mg Tab PO 10 mg DAILY JYOTI Administration Hydrochlorothiazide 50 mg 05/21/20 09:00 05/21/20 09:21 Hydrochlorothiazide 50 Mg Tab PO 50 mg DAILY JYOTI Administration Losartan Potassium 100 mg 05/21/20 09:00 05/21/20 09:17 Losartan 50 Mg Tab PO 100 mg DAILY JYOTI Administration Metoprolol Succinate 50 mg 05/21/20 09:00 05/21/20 09:18 Metoprolol Succinate (Er) 50 Mg Tab.Er.24h PO 50 mg DAILY JYOTI Administration Naloxone HCl 0.2 mg 05/20/20 20:09 Naloxone 0.4 Mg/Ml 1 Ml Vial IV Q2M PRN Opioid Reversal Pregabalin 100 mg 05/20/20 21:15 05/21/20 09:17 Pregabalin 100 Mg Cap PO 100 mg BID JYOTI Administration Tamsulosin HCl 0.4 mg 05/21/20 09:00 05/21/20 09:20 Tamsulosin 0.4 Mg Cap.Er.24h PO 0.4 mg DAILY JYOTI Administration Zinc Sulfate 220 mg 05/21/20 09:00 05/21/20 09:21 Zinc Sulfate 220 Mg Cap PO 220 mg DAILY JYOTI Administration Intake and Output 05/20/20 05/21/20 05/21/20 22:59 06:59 14:59 Intake Total 0 Balance 0 Intake: Oral 0 Other: Voiding Method Toilet Toilet Toilet # Voids 1 Weight 94.347 kg 94.5 kg 05/21/20 09:12 05/21/20 09:12
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
[2020-05-21] MEDS: BUTALB/APAP/CAFF 50-325-40MG TAB PO PRN (21:21)
[2020-05-22] MEDS: BUTALB/APAP/CAFF 50-325-40MG TAB PO PRN ×2 (01:33→08:49)
[2020-05-22] MEDS: LOSARTAN 50 MG TAB PO SCH (08:46)
[2020-05-22] MEDS: ASCORBIC ACID 500 MG TAB PO SCH (08:46)
[2020-05-22] MEDS: TAMSULOSIN 0.4 MG CAP.ER.24H PO SCH (08:46)
[2020-05-22] MEDS: CYANOCOBALAMIN 500 MCG TAB PO SCH (08:46)
[2020-05-22] MEDS: ATORVASTATIN 40 MG TAB PO SCH (08:47)
[2020-05-22] MEDS: ZINC SULFATE 220 MG CAP PO SCH (08:47)
[2020-05-22] MEDS: HYDROcodone/APAP 5-325MG 1 EACH TAB PO SCH ×2 (08:47→21:46)
[2020-05-22] MEDS: EZETIMIBE 10 MG TAB PO SCH (08:48)
[2020-05-22] MEDS: DULoxetine HCL 30 MG CAPSULE.DR PO SCH (08:48)
[2020-05-22] MEDS: PREGABALIN 100 MG CAP PO SCH ×2 (08:48→21:46)
[2020-05-22] MEDS: METOPROLOL SUCCINATE (ER) 50 MG TAB.ER.24H PO SCH (08:48)
[2020-05-22] MEDS: CLOPIDOGREL 75 MG TAB PO SCH (08:48)
[2020-05-22 08:54] VITALS: RESP 16
--- NOTE | 2020-05-22 11:32 | P.PN ---
Subjective Progress Note Date: 05/22/20 CHIEF COMPLAINT: Chest pain HISTORY OF PRESENT ILLNESS: 05/21/2020 This is a 59-year-old male with a past medical history significant for coronary artery disease, hypertension, and GERD. Patient follows with Dr. Matos in [place]. We have been asked to see the patient in consultation for chest pain. Patient initially presented to the hospital secondary to shortness of breath, nausea, headache, and hallucinations. Patient was initially diagnosed with Covid on 05/11/2020. Case discussed with patient's nurse who states patient has not had any complaints of chest pain overnight or this morning. Blood pressure 135/83. Heart rate in the 70s. He is afebrile. He is on room air with oxygen saturations greater than 92%. EKG reveals sinus mechanism with diffuse T-wave inversions Chest xray negative for acute process Laboratory data: WBC 10.0. Hemoglobin 14.7. Platelet count 265. D-dimer 0.20. Sodium 136. Potassium 4.4. BUN 25. Creatinine 0.81. Lactic acid 1.9. Troponins negative 3 Current home cardiac medications include hydrochlorothiazide 50 mg daily, metoprolol succinate 50 mg daily, losartan 100 mg daily, steady at 10 mg daily, Plavix 75 mg daily, Lipitor 40 mg daily Echocardiogram completed in October 2019 revealed ejection fraction 55-60% Patient underwent cardiac catheterization in July 2017 which revealed mild o bstruction of the midportion of the left main, 40% lesion in the proximal LAD, 85% lesion in the proximal first diagonal branch, 60% lesion in the mid circumflex artery, 20% lesion in the proximal OM, 20% lesion in the mid RCA and 20% lesion in the proximal RCA. Patient with Lexiscan stress test in May 2019 which was negative for reversible ischemia Echocardiogram completed in October 2019 revealed ejection fraction 55-60% and mild tricuspid regurgitation 05/22/2020 Patient remains hemodynamically stable. Blood pressure this morning 124/64. Heart rate in the 70s. He is afebrile. Telemetry reveals sinus mechanism. He remains on Lipitor, Plavix, Zetia, hydrochlorothiazide, losartan, and metoprolol succinate PHYSICAL EXAM: Thorough physical exam not completed secondary to limited evaluation/examination and due to Covid19 ASSESSMENT: Acute Covid 19 Headaches and nausea Hallucinations Coronary artery disease Hypertension Hyperlipidemia PLAN: Current current cardiac medications Neurology consulted. Patient to undergo MRI today Obtain 2-D echo to assess cardiac structure and function He is to follow up with his primary asset protection professional upon discharge Nurse practitioner note has been reviewed by physician. Signing provider agrees with the documented findings, assessment, and plan of care. Objective - Vital Signs Vital signs: Vital Signs Temp 97.8 F 05/22/20 04:00 Pulse 74 05/22/20 08:00 Resp 16 05/22/20 08:00 BP 124/64 05/22/20 08:00 Pulse Ox 98 05/22/20 08:00 Intake & Output 05/21/20 05/22/20 05/22/20 18:59 06:59 18:59 Intake Total 450 550 240 Output Total 400 Balance 450 150 240 Weight 94.6 kg Intake: Oral 450 550 240 Output: Urine 400 Other: Voiding Method Toilet Toilet Toilet # Voids 1 3 - Labs CBC & Chem 7: 05/21/20 09:12 05/21/20 09:12
[2020-05-22 13:13] VITALS: BMI 28.3
--- NOTE | 2020-05-22 13:30 | US ---
EXAMINATION TYPE: US extremity nonvasc mass LT DATE OF EXAM: 05/21/2020 COMPARISON: NONE CLINICAL HISTORY: cyst/mass left base neck/shoulder junction posterior. Patient has palpable area left. At the site of patient's palpable abnormality there is an isoechoic focus measuring approximately 3.6 cm x 9 mm. Limited scanning was performed. IMPRESSION: Findings may represent lipoma, CT or MRI with overlying skin marker could be performed t o confirm. Limited exam.
--- NOTE | 2020-05-22 14:11 | P.PN ---
Subjective Progress Note Date: 05/22/20 Patient is seen for the first time. He was seen by Dr. floyd last on 05/21/2020 and please defer to his note for further neurological work-up. She was seen at bedside and he stated that he continues to have headaches over the left occipital that radiates the over the left periorbital region he could not describe that the headache for me. He said it is 7/10. He has a slight photophobia and phonophobia which it didn't seem like it's what what upon seeing him. He denies any visual disturbance. Denies any weakness or numbness. He stated that he had these headaches before but since having covert that the intensity of the headache Has been worse. He gets left the occipital nerve block and the last 1 and he received was about 6 months ago by pain management he's been having the same type of headaches for last 5 years. Objective - Vital Signs Vital signs: Vital Signs Temp 97.8 F 05/22/20 04:00 Pulse 61 05/22/20 12:00 Resp 16 05/22/20 12:00 BP 120/74 05/22/20 12:00 Pulse Ox 95 05/22/20 12:00 Intake & Output 05/21/20 05/22/20 05/22/20 18:59 06:59 18:59 Intake Total 450 550 240 Output Total 400 Balance 450 150 240 Weight 94.6 kg 94.6 kg Intake: Oral 450 550 240 Output: Urine 400 Other: Voiding Method Toilet Toilet Toilet # Voids 1 3 - Exam GENERAL: The patient is lying in bed and is not in acute distress. NEUROLOGICAL: Higher mental function: The patient is awake, alert, oriented to self, place and time. Patient is following commands. No aphasia and no neglect. Cranial nerves: The pupils are round, equal and reactive to light and accommodation. Visual donohue are full to confrontation throughout. Extraocular movement is intact no nystagmus is noted. Facial sensation is normal to touch throughout. The facial strength is normal throughout. Hearing is normal bilaterally to hand rub. Tongue is midline and moved [id number] without any difficulty. No dysarthria is noted. Shoulder shrug is normal bilaterally. Motor: The strength is 5 over 5 throughout. Normal tone and bulk. Cerebellum: Normal finger to nose heel to chin bilaterally. Sensation: Sensation is normal to touch throughout. Plantars are downgoing bilaterally. - Labs CBC & Chem 7: 05/21/20 09:12 05/21/20 09:12 Assessment and Plan Assessment: * Cephalgia, left hemicranial region, unclear etiology. The symptoms started about 2 weeks ago, but has got worse in the last 1 week. Patient also has acute Covid-19 infection. Has same type of headache for past 5 years and alleviated with occipital block but feels his headache is intesified since COVID. Uncertain if headache is related to the Covid [address] head s howed very mild left maxillary and ethmoid sinus mucosal thickening, for which he has received course of antibiotics with amoxicillin, without improvement. Differential diagnosis also includes Hemicrania Continua. Symptoms not typical of cluster headache, as the headache is persistent, not relenting. * New onset hypnopompic hallucinations, unclear etiology. Again, uncertain if related delirium from acute Covid 19. These hallucinations does not occur while awake, only when coming out of sleep. Patient's neurological examination is otherwise normal. 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 * Chronic back pain. Plan: * Trial of Fioricet. * Indomethacin could be considered for possible ?Hemicrania continua, however has interaction with Plavix. * Consider Medrol Dosepak. Patient has received dexamethasone with mild improvement. * Pending MRI and MRA of the brain. * Patient was notified that he needs to follow-up with a neurologist as an outpatient as well as to continue follow up with a pain specialist since that he gets left occipital nerve blocks for the same type of headaches. Time with Patient: Less than 30
--- NOTE | 2020-05-22 14:53 | MR ---
EXAMINATION TYPE: MR angio head wo con DATE OF EXAM: 05/22/2020 2:31 PM COMPARISON: NONE HISTORY: Cephalgia, left side weakness, visual disturbance, covid Three-dimensional [id number] intracranial MRA was performed with multiple intensity projection im ages submitted and source data reviewed at the workstation. The vertebrobasilar system as well as intracranial portions of the internal carotid arteries and thei r major tributaries are patent. I do not see evidence for sizable aneurysm or vascular malformation. IMPRESSION: Normal study.
--- NOTE | 2020-05-22 16:08 | MR ---
EXAMINATION TYPE: MR brain wo con DATE OF EXAM: 05/22/2020 2:31 PM COMPARISON: NONE HISTORY: Cephalgia, left side weakness, visual disturbance, covid FINDINGS: The ventricles, basal cisterns and sulci overlying the cerebral convexities are mildly enlarged. There is evidence of mild periventricular white matter ischemic demyelination. Remote deep white matter insults are also noted. No acute edema is seen on diffusion weighted imaging. There is no evidence for midline shift or mass effect. Acute intracranial hemorrhage or extra-axial collection is not evident. Chronic right-sided mastoiditis and chronic left paranasal sinusitis. IMPRESSION: Age-related atrophic and chronic small vessel ischemic change. No acute intracranial process at this time.
--- NOTE | 2020-05-23 00:43 | PN ---
PROGRESS NOTE 59-year-old white male with a brain MRI, had MRA, both negative today. Johan took his headache pain down to 4 to 5/10. Possible discharge home tomorrow if cleared by Cardiology as well as Neurology. Vital signs stable. Afebrile. Cardiovascular S1, S2. Lungs clear. GI soft. ASSESSMENT: 1. Covid side effects including some delirium and maybe some hallucinations and nightmares. 2. Atypical chest pain. 3. Migraines, possibly made worse by Covid. 4. Await for multiple consultations and recommendations tomorrow prior to discharge. MMODL / IJN: [id number] /
[2020-05-23 06:09] VITALS: TEMP 98
[2020-05-23] MEDS: CYANOCOBALAMIN 500 MCG TAB PO SCH (08:46)
[2020-05-23] MEDS: METOPROLOL SUCCINATE (ER) 50 MG TAB.ER.24H PO SCH (08:46)
[2020-05-23] MEDS: ASCORBIC ACID 500 MG TAB PO SCH (08:46)
[2020-05-23] MEDS: CLOPIDOGREL 75 MG TAB PO SCH (08:46)
[2020-05-23] MEDS: LOSARTAN 50 MG TAB PO SCH (08:47)
[2020-05-23] MEDS: ZINC SULFATE 220 MG CAP PO SCH (08:47)
[2020-05-23] MEDS: HYDROcodone/APAP 5-325MG 1 EACH TAB PO SCH (08:47)
[2020-05-23] MEDS: PREGABALIN 100 MG CAP PO SCH (08:47)
[2020-05-23] MEDS: ATORVASTATIN 40 MG TAB PO SCH (08:47)
[2020-05-23] MEDS: DULoxetine HCL 30 MG CAPSULE.DR PO SCH (08:47)
[2020-05-23] MEDS: TAMSULOSIN 0.4 MG CAP.ER.24H PO SCH (08:47)
[2020-05-23] MEDS: EZETIMIBE 10 MG TAB PO SCH (08:48)
[2020-05-23] MEDS: BUTALB/APAP/CAFF 50-325-40MG TAB PO PRN ×2 (08:52→12:18)
[2020-05-23 13:22] VITALS: BP 135/63; PULSE 93
--- NOTE | 2020-05-23 14:00 | P.PN ---
Subjective Progress Note Date: 05/23/20 Patient was seen at bedside and he feels he woke-up today and feels his headaches has worsened. It is over the left occipital radiating to left retro- orbital. Denies photophobia or phonophobia. Denies worsening of his headache, visual disturbance, weakness or numbness. Patient had MRI of the brain on 05/22/2020 it's reported as age-related atrophic and chronic small vessel ischemic change. No acute intracranial processes at this time. In the body they reported it is mentioned there is a deep white matter insult the is noted. Chronic right-sided mastoiditis and chronic left paranasal sinusitis. MRA of the head is reported as normal. Objective - Vital Signs Vital signs: Vital Signs Temp 98 F 05/23/20 08:00 Pulse 69 05/23/20 08:00 Resp 16 05/23/20 08:00 BP 126/76 05/23/20 08:00 Pulse Ox 95 05/23/20 08:00 Intake & Output 05/22/20 05/23/20 05/23/20 18:59 06:59 18:59 Intake Total 1200 660 Balance 1200 660 Weight 94.6 kg 94.5 kg Intake: Oral 1200 660 Other: Voiding Method Toilet Toilet Toilet # Voids 1 - Exam GENERAL: The patient is lying in bed and is not in acute distress. NEUROLOGICAL: Higher mental function: The patient is awake, alert, oriented to self, place and time. Patient is following commands. No aphasia and no neglect. Cranial nerves: The pupils are round, equal and reactive to light and accommodat ion. Visual donohue are full to confrontation throughout. Extraocular movement is intact no nystagmus is noted. Facial sensation is normal to touch throughout. The facial strength is normal throughout. Hearing is normal bilaterally to hand rub. Tongue is midline and moved [id number] without any difficulty. No dysarthria is noted. Shoulder shrug is normal bilaterally. Motor: The strength is 5 over 5 throughout. Normal tone and bulk. Cerebellum: Normal finger to nose heel to chin bilaterally. Sensation: Sensation is normal to touch throughout. Plantars are downgoing bilaterally. - Labs CBC & Chem 7: 05/21/20 09:12 05/21/20 09:12 Assessment and Plan Assessment: * Cephalgia, left hemicranial region, unclear etiology. The symptoms started about 2 weeks ago, but has got worse in the last 1 week. Patient also has acute Covid-19 infection. Has same type of headache for past 5 years and alleviated with occipital block but feels his headache is intesified since COVID. Uncertain if headache is related to the Covid 19 infection. * New onset hypnopompic hallucinations, unclear etiology. Again, uncertain if related delirium from acute Covid 19. These hallucinations does not occur while awake, only when coming out of sleep. Patient's neurological examination is otherwise normal. 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 * Chronic back pain. Plan: * On Fioricet 1 tab q4hr PRN. * Patient had MRI of the brain on 05/22/2020 it's reported as age-related atrophic and chronic small vessel ischemic change. No acute intracranial processes at this time. In the body they reported it is mentioned there is a deep white matter insult the is noted. Chronic right-sided mastoiditis and chronic left paranasal sinusitis. * MRA of the head is reported as normal. * I consulted anesthesiology for left occipital nerve block. * Patient was notified that he needs to follow-up with a neurologist as an outpatient as well as to continue follow up with a pain specialist since that he gets left occipital nerve blocks for the same type of headaches. * Hopefully by tomorrow the headaches are improved and then afterwards from neurological standpoint he's clear. Saji Fitzgerald MD Neuro-Hospitalist Time with Patient: Less than 30
--- NOTE | 2020-05-23 14:42 | DS ---
DISCHARGE SUMMARY DISCHARGE MEDICINES: 1. Fioricet 1 every 4 hours p.r.n. for pain, headaches. 2. Lipitor 40 mg daily. 3. Plavix 75 mg daily. 4. Toprol-XL 50 mg daily. 5. Duloxetine 30 daily. 6. Zetia 10 mg daily. 7. HydroDIURIL 50 daily/. 8. Dulac 5/325 q.12 hours p.r.n. 9. Losartan 100 mg daily. 10.Pregabalin 100 mg b.i.d. 11.Flomax 0.4 mg daily. 12.Testosterone 200 mg IM q.2 weeks. 13.Nitroglycerin sublingual p.r.n. for pain. 14.Zinc 50 mg daily. 15.Ascorbic acid 1000 mg daily. 16.Vitamin B12, 1000 mcg daily. CONDITION: Stable. PROGNOSIS: Guarded. AMBULATE: As tolerated. He came in with chest pain, atypical chest pain. COVID-19 type neurologic changes, hallucinations, headaches. Neurology saw him and cleared him for discharge. MRI and MRA of the brain were negative. Started on Fioricet for headaches. Cardiology cleared him from cardiac standpoint. Blood pressure medicines were readjusted. He will follow up as an outpatient. Be cleared by Cardiology and Neurology on discharge. DIET: Regular. MMODL / IJN: [id number] /
== END 2020-05-23 18:25 | disposition home or self-care (01) ==
LOC: EC 16:39 → 3SCARD 20:12
PROVIDERS: ADMIT Family Medicine; ATTEND Family Medicine
DX: U07.1 COVID-19 (principal); R07.89 Other chest pain; G43.909 Migraine, unspecified, not intractable, without status migrainosus; R44.1 Visual hallucinations; R41.0 Disorientation, unspecified; J32.9 Chronic sinusitis, unspecified; R42 Dizziness and giddiness; R11.0 Nausea; I10 Essential (primary) hypertension; E78.5 Hyperlipidemia, unspecified; K21.9 Gastro-esophageal reflux disease without esophagitis; F17.200 Nicotine dependence, unspecified, uncomplicated; M54.9 Dorsalgia, unspecified; I25.10 Atherosclerotic heart disease of native coronary artery without angina pectoris; I25.2 Old myocardial infarction; G89.29 Other chronic pain; H70.91 Unspecified mastoiditis, right ear; Z79.890 Hormone replacement therapy; Z79.899 Other long term (current) drug therapy; Z79.891 Long term (current) use of opiate analgesic; Z79.02 Long term (current) use of antithrombotics/antiplatelets; F32.9 Major depressive disorder, single episode, unspecified; Z90.49 Acquired absence of other specified parts of digestive tract; Z95.5 Presence of coronary angioplasty implant and graft; Z98.1 Arthrodesis status; Z80.42 Family history of malignant neoplasm of prostate; Z82.49 Family history of ischemic heart disease and other diseases of the circulatory system
CPT/HCPCS: 96365; 96375; 99285; 36415; 93005; 93306; 85379; 83880; 80053; 80048; 83605; 83615; 83735; 84484 ×2; 85025 ×2; 85610; 85730; 86140; 87635; 71045; 76882; 70450; 70544; 70551; G0378 ×4; J1200; J1100; J2765; J3475; J1885

== ENCOUNTER 2020-11-28 12:40 | Emergency (ER) | payer OTHER ==
[2020-11-28 13:23] VITALS: RESP 18; TEMP 98.2
[2020-11-28] MEDS ORDERED: KETOROLAC 15 MG/ML 1 ML VIAL IVP STA (14:06)
[2020-11-28] MEDS ORDERED: SODIUM CHLORIDE 0.9% 1,000 ML IV STA (14:06)
[2020-11-28] MEDS ORDERED: ONDANSETRON 4 MG/2 ML VIAL IVP STA (14:06)
[2020-11-28] MEDS ORDERED: diphenhydrAMINE 50 MG/ML 1 ML VIAL IVP STA (14:06)
[2020-11-28 14:31] LABS: Basophils % (A) 1 %; Eosinophils # (A) 0.1 k/uL (0-0.7); Eosinophils % (A) 1 %; HCT 46.4 % (39.0-53.0); Lymphocytes % (A) 26 %; MCH 31.1 pg (25.0-35.0); MCHC 34.5 g/dL (31.0-37.0); MCV 90.2 fL (80.0-100.0); Mean Platelet Volume 9.2; Monocytes # (A) 0.5 k/uL (0-1.0); Monocytes % (A) 6 %; Neutrophils # (A) 4.9 k/uL (1.3-7.7); Neutrophils % (A) 64 %; Platelet Count 174 k/uL (150-450); RBC 5.14 m/uL (4.30-5.90); RDW 12.8 % (11.5-15.5); WBC 7.7 k/uL (3.8-10.6)
[2020-11-28 14:41] LABS: ALT 30 U/L (4-49); AST 26 U/L (17-59); African American GFR (CKD) >90 (>60 ml/min/1.73 sqM); Albumin 4.3 g/dL (3.5-5.0); Alkaline Phosphatase 98 U/L (38-126); Anion Gap 9 mmol/L; Blood Urea Nitrogen 28 mg/dL (9-20); Calcium 9.6 mg/dL (8.4-10.2); Carbon Dioxide 25 mmol/L (22-30); Chloride 103 mmol/L (98-107); Glucose 116 mg/dL (74-99); Non-African American GFR(CKD) >90 (>60 ml/min/1.73 sqM); Potassium 4.2 mmol/L (3.5-5.1); Sodium 137 mmol/L (137-145); Total Bilirubin 0.6 mg/dL (0.2-1.3); Total Protein 6.9 g/dL (6.3-8.2)
--- NOTE | 2020-11-28 14:59 | ED ---
Headache HPI - General Chief Complaint: Headache Stated Complaint: headaches Time Seen by Provider: 11/28/20 13:43 Source: patient, RN notes reviewed, old records reviewed Mode of arrival: ambulatory Limitations: no limitations - History of Present Illness Initial Comments: Patient is a 60-year-old male with history of hypertension, heart disease, prese nting to the emergency Department with complaints of a headache increasing over the past few days. He has history of occipital neuralgia, does have chronic headaches. He does see a specialist in [place], he has a cervical MRI in one week, states the pain has become worse over the past couple days and nothing at home is helping. He used to be on [employer] where he was taken off of them about 3 months ago. Patient does admit to some mild nausea, no vomiting, no diarrhea. He has been following with his PCP. He does admit to some mild vision changes in the left eye with this pain but states that is normal for him. This is not new. Denies any fevers or chills, no additional neck pain. No chest pain or shortness of breath. He has no further complaints at this time. Upon arrival to the ER his vitals are stable. - Related Data Home Medications Medication Instructions Recorded Confirmed Atorvastatin [Lipitor] 40 mg PO DAILY 01/19/18 05/20/20 Clopidogrel [Plavix] 75 mg PO DAILY 01/19/18 05/20/20 Metoprolol Succinate (ER) [Toprol 50 mg PO DAILY 01/19/18 05/20/20 XL] DULoxetine HCL [Cymbalta] 30 mg PO DAILY 02/16/19 05/20/20 Ezetimibe [Zetia] 10 mg PO DAILY 11/17/19 05/20/20 HYDROcodone/APAP 5-325MG [[place] 1 tab PO BID 11/17/19 05/20/20 5-325] Losartan Potassium 100 mg PO DAILY 11/17/19 05/20/20 Pregabalin [Lyrica] 100 mg PO BID 11/17/19 05/20/20 hydroCHLOROthiazide [Hydrodiuril] 50 mg PO DAILY 11/17/19 05/20/20 Tamsulosin HCl [Flomax] 0.4 mg PO DAILY 11/26/19 05/20/20 Testosterone Cypionate 200 mg IM Q14D 11/26/19 05/20/20 [Depo-Testosterone] Ascorbic Acid [Vitamin C] 1,000 mg PO DAILY 05/20/20 05/20/20 Cyanocobalamin (Vitamin B-12) 1,000 mcg PO DAILY 05/20/20 05/20/20 [Vitamin B-12] Zinc 50 mg PO DAILY 05/20/20 05/20/20 Previous Rx's Medication Instructions Recorded Nitroglycerin Sl Tabs [Nitrostat] 0.4 mg SUBLINGUAL Q5M PRN tab 11/27/19 Butalb/APAP/Caff 50-325-40Mg 1 each PO Q4HR PRN 30 Days #30 tab 05/23/20 [Fioricet 50-325-40] Allergies Allergy/AdvReac Type Severity Reaction Status Date / Time No Known Allergies Allergy Verified 11/28/20 13:23 Review of Systems ROS Statement: Those systems with pertinent positive or pertinent negative responses have been documented in the HPI. ROS Other: All systems not noted in ROS Statement are negative. Past Medical History Past Medical History: GERD/Reflux, Hypertension, [place]ocardial Infarction ([place]) Additional Past Medical History / Comment(s): joint pain, chronic pain, [place] 2010 Last Myocardial Infarction Date:: 2010 History of Any Multi-Drug Resistant Organisms: None Reported Past Surgical History: Cholecystectomy, Heart Catheterization With Stent Additional Past Surgical History / Comment(s): back fusion L5 S1, right wrist tendon repair Past Anesthesia/Blood Transfusion Reactions: No Reported Reaction Date of Last Stent Placement:: 2010 Past Psychological History: Depression Smoking Status: Current some day smoker Past Alcohol Use History: Rare Past Drug Use History: None Reported - Past Family History Father Family Medical History: Cancer, Coronary Artery Disease (CAD) Additional Family Medical History / Comment(s): prostate cancer Mother Family Medical History: Coronary Artery Disease (CAD) General Exam - General Exam Comments Initial Comments: GENERAL: Patient is well-developed and well-nourished. Patient is nontoxic and in no acute distress. HEAD: Atraumatic, normocephalic. EYES: Pupils equal round and reactive to light, extraocular movements intact, sclera anicteric, conjunctiva are normal. Eyelids were unremarkable. ENT: TMs normal, nares patent, oropharynx clear without exudates. Moist mucous membranes. NECK: Normal range of motion, supple without lymphadenopathy or JVD. No midline tenderness. LUNGS: Unlabored respirations. Breath sounds clear to auscultation bilaterally and equal. No wheezes rales or rhonchi. HEART: Regular rate and rhythm without murmurs, rubs or gallops. ABDOMEN: Soft, nontender, normoactive bowel sounds. No guarding, no rebound. No masses appreciated. : Deferred MUSCULOSKELETAL: Normal extremities with adequate strength and normal range of motion, no pitting or edema. No clubbing or cyanosis. NEUROLOGICAL: Patient is alert and oriented x 3. Motor and sensory are also intact. Cranial nerves II through XII grossly intact. Symmetrical smile. Normal speech, normal gait. PSYCH: Normal mood, normal affect. SKIN: Warm, Dry, normal turgor, no rashes or lesions noted. Limitations: no limitations Course Vital Signs 11/28/20 13:20 Temperature 98.2 F Pulse Rate 74 Respiratory 18 Rate Blood Pressure 138/94 O2 Sat by Pulse 97 Oximetry Medical Decision Making - Medical Decision Making Patient is a 60-year-old male with history of occipital neuralgia, presenting for headache over the past week. He has been following with his PCP and a specialist [place] for this. No fevers, his vitals are stable. No neural deficits on exam. Patient was given fluids, pain control, he does report improvement in his symptoms. He is stable for discharge. He will follow-up with his family doctors. He is agreeable to this. I will send him home with atenolol 3 starter pack. Return parameters were discussed with him and he verbalized understanding. Case discussed with Dr. Gutierres. - Lab Data Result diagrams: 11/28/20 14:18 11/28/20 14:18 Lab Results 11/28/20 11/28/20 Range/Units 14:18 14:18 WBC 7.7 (3.8-10.6) k/uL RBC 5.14 (4.30-5.90) m/uL Hgb 16.0 (13.0-17.5) gm/dL Hct 46.4 (39.0-53.0) % MCV 90.2 (80.0-100.0) fL MCH 31.1 (25.0-35.0) pg MCHC 34.5 (31.0-37.0) g/dL RDW 12.8 (11.5-15.5) % Plt Count 174 (150-450) k/uL MPV 9.2 Neutrophils % 64 % Lymphocytes % 26 % Monocytes % 6 % Eosinophils % 1 % Basophils % 1 % Neutrophils # 4.9 (1.3-7.7) k/uL Lymphocytes # 2.0 (1.0-4.8) k/uL Monocytes # 0.5 (0-1.0) k/uL Eosinophils # 0.1 (0-0.7) k/uL Basophils # 0.0 (0-0.2) k/uL Sodium 137 (137-145) mmol/L Potassium 4.2 (3.5-5.1) mmol/L Chloride 103 (98-107) mmol/L Carbon Dioxide 25 (22-30) mmol/L Anion Gap 9 mmol/L BUN 28 H (9-20) mg/dL Creatinine 0.87 (0.66-1.25) mg/dL Est GFR (CKD-EPI)AfAm >90 (>60 ml/min/1.73 sqM) Est GFR (CKD-EPI)NonAf >90 (>60 ml/min/1.73 sqM) Glucose 116 H (74-99) mg/dL Calcium 9.6 (8.4-10.2) mg/dL Total Bilirubin 0.6 (0.2-1.3) mg/dL AST 26 (17-59) U/L ALT 30 (4-49) U/L Alkaline Phosphatase 98 (38-126) U/L Total Protein 6.9 (6.3-8.2) g/dL Albumin 4.3 (3.5-5.0) g/dL Disposition Clinical Impression: Headache Disposition: HOME SELF-CARE Condition: Stable Instructions (If sedation given, give patient instructions): Acute Headache (ED) Additional Instructions: Please return to the Emergency Department if symptoms worsen or any other concerns. Please follow-up with your family doctor/specialist. Is patient prescribed a controlled substance at d/c from ED?: No Referrals: Markell Rea MD [Primary Care Provider] - 1-2 days Time of Disposition: 17:15
[2020-11-28] MEDS ORDERED: MORPHINE SULFATE 4 MG/ML SYRINGE IVP STA (15:09)
[2020-11-28] MEDS ORDERED: ACET/COD 300 MG/30 MG STARTER PACK 6 TAB BTL PO STA (17:10)
[2020-11-28] MEDS ORDERED: MORPHINE SULFATE 2 MG/ML SYRINGE IVP ONE (17:10)
[2020-11-28 17:43] VITALS: BP 131/78; PULSE 63
== END 2020-11-28 17:42 | disposition home or self-care (01) ==
LOC: EC 12:40
DX: R51.9 Headache, unspecified (principal); R11.0 Nausea; I10 Essential (primary) hypertension; I25.2 Old myocardial infarction; F17.200 Nicotine dependence, unspecified, uncomplicated; Z79.02 Long term (current) use of antithrombotics/antiplatelets; Z79.899 Other long term (current) drug therapy
CPT/HCPCS: 36415; 80053; 85025; 99284; 96376; 96375; 96374; 96361; J2270 ×2; J1200; J2405; J1885

== ENCOUNTER 2020-12-04 15:06 | Emergency (ER) | payer OTHER ==
[2020-12-04 16:36] VITALS: BP 174/90; PULSE 66; RESP 18; TEMP 98.2
[2020-12-04] MEDS ORDERED: MORPHINE SULFATE 4 MG/ML SYRINGE IV STA (18:29)
[2020-12-04] MEDS ORDERED: SODIUM CHLORIDE 0.9% 500 ML 500 ML IV STA (18:29)
--- NOTE | 2020-12-04 18:31 | ED ---
General Adult HPI - General Chief complaint: Back Pain/Injury Stated complaint: lt sided pain Time Seen by Provider: 12/04/20 18:18 Source: patient Mode of arrival: ambulatory Limitations: no limitations - History of Present Illness Initial comments: Dictation was produced using [employer] dictation software. please excuse any grammatical, word or spelling errors. Chief Complaint: 60-year-old male presents with left-sided back pain and headache. History of Present Illness: Is a 60-year-old male he has past medical history of chronic pain. He follows up with a pain doctor down at [place]. Patient states that over the last couple days he's been having worsening left- sided CVA pain. Patient has history of kidney stones. He states that it's a stabbing pain to his CVA area. States not colicky. He has had poor appetite but denies any nausea or vomiting. Patient also complaining of headache. States it's to his left occiput area. Patient has history of occipital neuralgia. Patient denies any constitutional symptoms. The ROS documented in this emergency department record has been reviewed and confirmed by me. Those systems with pertinent positive or negative responses have been documented in the HPI. All other systems are other negative and/or noncontributory. PHYSICAL EXAM: General Impression: Alert and oriented x3, not in acute distress HEENT: Normocephalic atraumatic, extra-ocular movements intact, pupils equal and reactive to light bilaterally, mucous membranes moist. Cardiovascular: Heart regular rate and rhythm Chest: Able to complete full sentences, no retractions, no tachypnea Abdomen: abdomen soft, non-tender, non-distended, no organomegaly, no pulsatile abdominal mass Musculoskeletal: Pulses present and equal in all extremities, no peripheral edema, mild CVA tenderness with down to the left CVA area Motor: no focal deficits noted Neurological: CN II-XII grossly intact, no focal motor or sensory deficits noted Skin: Intact with no visualized rashes Psych: Normal affect and mood ED course: 60-year-old well-appearing male with past medical history of chronic pain presents to the emergency department for left-sided CVA pain and symptoms of his usual occipital neuralgia. Vital signs upon arrival are within acceptable limits. Laboratory evaluation obtained. CBC, metabolic panel is within acceptable limits. Mild acidosis. BUN 29 week regarding of 0.89 likely reflect some degree of dehydration. Urinalysis shows 6 red blood cells. Acute abdominal series with chest x-ray shows possible 4 mm distal left ureteral calculus. Patient reevaluated at bedside at 7:30 PM he is well-appearing. Patient is agreeable for discharge. Is advised follow-up with primary care physician and pain specialists and urologist. - Related Data Home Medications Medication Instructions Recorded Confirmed Atorvastatin [Lipitor] 40 mg PO DAILY 01/19/18 05/20/20 Clopidogrel [Plavix] 75 mg PO DAILY 01/19/18 05/20/20 Metoprolol Succinate (ER) [Toprol 50 mg PO DAILY 01/19/18 05/20/20 XL] DULoxetine HCL [Cymbalta] 30 mg PO DAILY 02/16/19 05/20/20 Ezetimibe [Zetia] 10 mg PO DAILY 11/17/19 05/20/20 HYDROcodone/APAP 5-325MG [[place] 1 tab PO BID 11/17/19 05/20/20 5-325] Losartan Potassium 100 mg PO DAILY 11/17/19 05/20/20 Pregabalin [Lyrica] 100 mg PO BID 11/17/19 05/20/20 hydroCHLOROthiazide [Hydrodiuril] 50 mg PO DAILY 11/17/19 05/20/20 Tamsulosin HCl [Flomax] 0.4 mg PO DAILY 11/26/19 05/20/20 Testosterone Cypionate 200 mg IM Q14D 11/26/19 05/20/20 [Depo-Testosterone] Ascorbic Acid [Vitamin C] 1,000 mg PO DAILY 05/20/20 05/20/20 Cyanocobalamin (Vitamin B-12) 1,000 mcg PO DAILY 05/20/20 05/20/20 [Vitamin B-12] Zinc 50 mg PO DAILY 05/20/20 05/20/20 Previous Rx's Medication Instructions Recorded Nitroglycerin Sl Tabs [Nitrostat] 0.4 mg SUBLINGUAL Q5M PRN tab 11/27/19 Butalb/APAP/Caff 50-325-40Mg 1 each PO Q4HR PRN 30 Days #30 tab 05/23/20 [Fioricet 50-325-40] Ketorolac [Toradol] 10 mg PO Q6HR 3 Days #12 tab 12/04/20 Allergies Allergy/AdvReac Type Severity Reaction Status Date / Time No Known Allergies Allergy Verified 11/28/20 13:23 Review of Systems ROS Statement: Those systems with pertinent positive or pertinent negative responses have been documented in the HPI. ROS Other: All systems not noted in ROS Statement are negative. Past Medical History Past Medical History: GERD/Reflux, Hypertension, Myocardial Infarction ([place]) Additional Past Medical History / Comment(s): joint pain, chronic pain, [place] 2010, chronic left side pain, on lyrica Last Myocardial Infarction Date:: 2010 History of Any Multi-Drug Resistant Organisms: None Reported Past Surgical History: Cholecystectomy, Heart Catheterization With Stent Additional Past Surgical History / Comment(s): back fusion L5 S1, right wrist tendon repair Past Anesthesia/Blood Transfusion Reactions: No Reported Reaction Date of Last Stent Placement:: 2010 Past Psychological History: Depression Smoking Status: Current some day smoker Past Alcohol Use History: Rare Past Drug Use History: None Reported - Past Family History Father Family Medical History: Cancer, Coronary Artery Disease (CAD) Additional Family Medical History / Comment(s): prostate cancer Mother Family Medical History: Coronary Artery Disease (CAD) General Exam Limitations: no limitations Course Vital Signs 12/04/20 16:32 Temperature 98.2 F Pulse Rate 66 Respiratory 18 Rate Blood Pressure 174/90 O2 Sat by Pulse 99 Oximetry Medical Decision Making - Lab Data Result diagrams: 12/04/20 18:30 12/04/20 18:30 Lab Results 12/04/20 12/04/20 12/04/20 Range/Units 18:30 18:30 18:30 WBC 7.6 (3.8-10.6) k/uL RBC 5.47 (4.30-5.90) m/uL Hgb 17.3 (13.0-17.5) gm/dL Hct 49.3 (39.0-53.0) % MCV 90.1 (80.0-100.0) fL MCH 31.6 (25.0-35.0) pg MCHC 35.0 (31.0-37.0) g/dL RDW 12.5 (11.5-15.5) % Plt Count 184 (150-450) k/uL MPV 9.2 Neutrophils % 70 % Lymphocytes % 22 % Monocytes % 5 % Eosinophils % 0 % Basophils % 0 % Neutrophils # 5.3 (1.3-7.7) k/uL Lymphocytes # 1.7 (1.0-4.8) k/uL Monocytes # 0.4 (0-1.0) k/uL Eosinophils # 0.0 (0-0.7) k/uL Basophils # 0.0 (0-0.2) k/uL Sodium 137 (137-145) mmol/L Potassium 4.2 (3.5-5.1) mmol/L Chloride 106 (98-107) mmol/L Carbon Dioxide 19 L (22-30) mmol/L Anion Gap 12 mmol/L BUN 29 H (9-20) mg/dL Creatinine 0.89 (0.66-1.25) mg/dL Est GFR (CKD-EPI)AfAm >90 (>60 ml/min/1.73 sqM) Est GFR (CKD-EPI)NonAf >90 (>60 ml/min/1.73 sqM) Glucose 107 H (74-99) mg/dL Calcium 9.8 (8.4-10.2) mg/dL Total Bilirubin 1.0 (0.2-1.3) mg/dL AST 31 (17-59) U/L ALT 25 (4-49) U/L Alkaline Phosphatase 131 H (38-126) U/L Total Protein 7.4 (6.3-8.2) g/dL Albumin 4.7 (3.5-5.0) g/dL Lipase 75 (23-300) U/L Urine Color Yellow Urine Appearance Clear (Clear) Urine pH 5.5 (5.0-8.0) Ur Specific [place] 1.042 H (1.001-1.035) Urine Protein Trace H (Negative) Urine Glucose (UA) Negative (Negative) Urine Ketones Negative (Negative) Urine Blood Moderate H (Negative) Urine Nitrite Negative (Negative) Urine Bilirubin Negative (Negative) Urine Urobilinogen <2.0 (<2.0) mg/dL Ur Leukocyte Esterase Negative (Negative) Urine RBC 6 H (0-5) /hpf Urine WBC 2 (0-5) /hpf Ur Squamous Epith Cells 1 (0-4) /hpf Calcium Oxalate Crystal Few H (None) /hpf Urine Mucus Many H (None) /hpf Disposition Clinical Impression: Flank pain Disposition: HOME SELF-CARE Condition: Fair Instructions (If sedation given, give patient instructions): Kidney Stones (ED) Additional Instructions: follow up w urologist Prescriptions: Ketorolac [Toradol] 10 mg PO Q6HR 3 Days #12 tab Is patient prescribed a controlled substance at d/c from ED?: No Referrals: Markell Rea MD [Primary Care Provider] - 1-2 days
[2020-12-04] MEDS ORDERED: ONDANSETRON 4 MG/2 ML VIAL IVP STA (19:00)
[2020-12-04 19:06] LABS: Appearance,Urine Clear (Clear); Bilirubin,Urine Negative (Negative); Blood,Urine Moderate (Negative); Calcium Oxalate Crystals,Urine Few /hpf; Color,Urine Yellow; Glucose,Urine (UA) Negative (Negative); Ketones,Urine Negative (Negative); Leukocyte Esterase,Urine Negative (Negative); Mucus,Urine Many /hpf; Nitrite,Urine Negative (Negative); PH, Urine 5.5 (5.0-8.0); Protein,Urine Trace (Negative); RBC,Urine 6 /hpf (0-5); Specific Gravity,Urine 1.042 (1.001-1.035); Squamous Epithelial Cell,Urine 1 /hpf (0-4); Urobilinogen,Urine <2.0 mg/dL (<2.0); WBC,Urine 2 /hpf (0-5)
[2020-12-04 19:15] LABS: ALT 25 U/L (4-49); AST 31 U/L (17-59); African American GFR (CKD) >90 (>60 ml/min/1.73 sqM); Albumin 4.7 g/dL (3.5-5.0); Alkaline Phosphatase 131 U/L (38-126); Anion Gap 12 mmol/L; Basophils % (A) 0 %; Blood Urea Nitrogen 29 mg/dL (9-20); Calcium 9.8 mg/dL (8.4-10.2); Carbon Dioxide 19 mmol/L (22-30); Chloride 106 mmol/L (98-107); Eosinophils % (A) 0 %; Glucose 107 mg/dL (74-99); HCT 49.3 % (39.0-53.0); HGB 17.3 gm/dL (13.0-17.5); Lipase 75 U/L (23-300); Lymphocytes # (A) 1.7 k/uL (1.0-4.8); Lymphocytes % (A) 22 %; MCH 31.6 pg (25.0-35.0); MCV 90.1 fL (80.0-100.0); Mean Platelet Volume 9.2; Monocytes # (A) 0.4 k/uL (0-1.0); Monocytes % (A) 5 %; Neutrophils # (A) 5.3 k/uL (1.3-7.7); Neutrophils % (A) 70 %; Non-African American GFR(CKD) >90 (>60 ml/min/1.73 sqM); Platelet Count 184 k/uL (150-450); Potassium 4.2 mmol/L (3.5-5.1); RBC 5.47 m/uL (4.30-5.90); RDW 12.5 % (11.5-15.5); Sodium 137 mmol/L (137-145); Total Protein 7.4 g/dL (6.3-8.2); WBC 7.6 k/uL (3.8-10.6)
--- NOTE | 2020-12-04 19:26 | XR ---
EXAMINATION TYPE: XR abdomen acute w cxr DATE OF EXAM: 12/04/2020 COMPARISON: 05/20/2020 HISTORY: Pain TECHNIQUE: Supine, upright, and left side down lateral decubitus views of the abdomen are obtained. FINDINGS: Stimulator device overlying the vertebral, and postsurgical change lumbar spine. Lungs are clear. Biapical pleural thickening with no focal infiltrate or pleural effusion. Heart size normal. Bowel gas pattern nonspecific with no obstruction. Nonspecific calcification pelvis likely vascular. 4 mm calcification left hemipelvis could be within the distal left ureter. IMPRESSION: 4 mm distal left ureteral calculus in the differential diagnosis correlate clinically.
== END 2020-12-04 19:57 | disposition home or self-care (01) ==
LOC: EC 15:06
DX: N20.1 Calculus of ureter (principal); R51.9 Headache, unspecified; E87.2 Acidosis; F17.200 Nicotine dependence, unspecified, uncomplicated; I10 Essential (primary) hypertension; I25.2 Old myocardial infarction; Z79.899 Other long term (current) drug therapy
CPT/HCPCS: 36415; 80053; 83690; 85025; 81001; 74022; 99284; 96374; 96375; J2270; J2405

== ENCOUNTER 2020-12-06 09:30 | Emergency (ER) | payer OTHER ==
[2020-12-06 09:33] VITALS: TEMP 98.2
[2020-12-06] MEDS ORDERED: ONDANSETRON 4 MG/2 ML VIAL IVP STA (09:53)
[2020-12-06] MEDS ORDERED: MORPHINE SULFATE 4 MG/ML SYRINGE IV STA (09:53)
[2020-12-06] MEDS ORDERED: SODIUM CHLORIDE 0.9% 1,000 ML IV STA (09:53)
--- NOTE | 2020-12-06 10:36 | ED ---
Abdominal Pain HPI - General Chief Complaint: Abdominal Pain Stated Complaint: InQuicker/Revisit/Nausea/Vomiting Time Seen by Provider: 12/06/20 09:37 Source: patient, RN notes reviewed Mode of arrival: ambulatory Limitations: no limitations - History of Present Illness Initial Comments: Patient is a 60-year-old male that presents to emergency room complaining of abdominal pain with nausea and vomiting. He notes he was seen several days ago was told he had a left kidney stone. He notes that since then he has had no relief of pain. He notes it is a 10 out of 10 constant. He notes he still having bowel movements and urinating with no issue. He returns due to pain. He is otherwise well. He denied any other issues or complaint. He denied chest pain shortness of breath diarrhea constipation fever fatigue chills. - Related Data Home Medications Medication Instructions Recorded Confirmed Atorvastatin [Lipitor] 40 mg PO DAILY 01/19/18 05/20/20 Clopidogrel [Plavix] 75 mg PO DAILY 01/19/18 05/20/20 Metoprolol Succinate (ER) [Toprol 50 mg PO DAILY 01/19/18 05/20/20 XL] DULoxetine HCL [Cymbalta] 30 mg PO DAILY 02/16/19 05/20/20 Ezetimibe [Zetia] 10 mg PO DAILY 11/17/19 05/20/20 HYDROcodone/APAP 5-325MG [[place] 1 tab PO BID 11/17/19 05/20/20 5-325] Losartan Potassium 100 mg PO DAILY 11/17/19 05/20/20 Pregabalin [Lyrica] 100 mg PO BID 11/17/19 05/20/20 hydroCHLOROthiazide [Hydrodiuril] 50 mg PO DAILY 11/17/19 05/20/20 Tamsulosin HCl [Flomax] 0.4 mg PO DAILY 11/26/19 05/20/20 Testosterone Cypionate 200 mg IM Q14D 11/26/19 05/20/20 [Depo-Testosterone] Ascorbic Acid [Vitamin C] 1,000 mg PO DAILY 05/20/20 05/20/20 Cyanocobalamin (Vitamin B-12) 1,000 mcg PO DAILY 05/20/20 05/20/20 [Vitamin B-12] Zinc 50 mg PO DAILY 05/20/20 05/20/20 Previous Rx's Medication Instructions Recorded Nitroglycerin Sl Tabs [Nitrostat] 0.4 mg SUBLINGUAL Q5M PRN tab 11/27/19 Butalb/APAP/Caff 50-325-40Mg 1 each PO Q4HR PRN 30 Days #30 tab 05/23/20 [Fioricet 50-325-40] Ketorolac [Toradol] 10 mg PO Q6HR 3 Days #12 tab 12/04/20 Allergies Allergy/AdvReac Type Severity Reaction Status Date / Time No Known Allergies Allergy Verified 12/06/20 09:31 Review of Systems ROS Statement: Those systems with pertinent positive or pertinent negative responses have been documented in the HPI. ROS Other: All systems not noted in ROS Statement are negative. Past Medical History Past Medical History: GERD/Reflux, Hypertension, Myocardial Infarction ([place]) Additional Past Medical History / Comment(s): joint pain, chronic pain, [place] 2010, chronic left side pain, on lyrica Last Myocardial Infarction Date:: 2010 History of Any Multi-Drug Resistant Organisms: None Reported Past Surgical History: Cholecystectomy, Heart Catheterization With Stent Additional Past Surgical History / Comment(s): back fusion L5 S1, right wrist tendon repair Past Anesthesia/Blood Transfusion Reactions: No Reported Reaction Date of Last Stent Placement:: 2010 Past Psychological History: Depression Smoking Status: Current some day smoker Past Alcohol Use History: Rare Past Drug Use History: None Reported - Past Family History Father Family Medical History: Cancer, Coronary Artery Disease (CAD) Additional Family Medical History / Comment(s): prostate cancer Mother Family Medical History: Coronary Artery Disease (CAD) General Exam Limitations: no limitations General appearance: alert, in no apparent distress Head exam: Present: atraumatic, normocephalic, normal inspection Eye exam: Present: normal appearance, PERRL, EOMI. Absent: scleral icterus, conjunctival injection, periorbital swelling ENT exam: Present: normal exam, mucous membranes moist Neck exam: Present: normal inspection Respiratory exam: Present: normal lung sounds bilaterally. Absent: respiratory distress, wheezes, rales, rhonchi, stridor Cardiovascular Exam: Present: regular rate, normal rhythm, normal heart sounds. Absent: systolic murmur, diastolic murmur, rubs, gallop, clicks GI/Abdominal exam: Present: soft, tenderness (Generalized in all quadrants.), normal bowel sounds. Absent: distended, guarding, rebound, rigid Extremities exam: Present: normal inspection, full ROM, normal capillary refill. Absent: tenderness, pedal edema, joint swelling, calf tenderness Back exam: Present: normal inspection, CVA tenderness (R), CVA tenderness (L) Neurological exam: Present: alert, oriented X3 Psychiatric exam: Present: normal affect, normal mood Skin exam: Present: warm, dry, intact, normal color. Absent: rash Course Vital Signs 12/06/20 09:31 Temperature 98.2 F Pulse Rate 68 Respiratory 16 Rate Blood Pressure 167/100 O2 Sat by Pulse 97 Oximetry Medical Decision Making - Medical Decision Making 60-year-old male complaining of abdominal pain, history of kidney stone. Labs, CT abdomen and pelvis, 1 L normal saline, 4 mg morphine, 4 mg Zofran ordered. Computed tomography scan shows nonacute abdomen no acute process. Labs unremarkable. Patient most of aches pains and generalized abdominal pain. Case discussed with Dr. Collins, patient discharge home with follow-up to GI specialist and primary care. - Lab Data Result diagrams: 12/06/20 11:41 12/06/20 11:41 Lab Results 12/06/20 12/06/20 12/06/20 Range/Units 10:30 11:41 11:41 WBC 8.9 (3.8-10.6) k/uL RBC 5.07 (4.30-5.90) m/uL Hgb 15.9 (13.0-17.5) gm/dL Hct 45.5 (39.0-53.0) % MCV 89.7 (80.0-100.0) fL MCH 31.4 (25.0-35.0) pg MCHC 35.0 (31.0-37.0) g/dL RDW 12.6 (11.5-15.5) % Plt Count 184 (150-450) k/uL MPV 9.3 Neutrophils % 74 % Lymphocytes % 19 % Monocytes % 6 % Eosinophils % 0 % Basophils % 0 % Neutrophils # 6.6 (1.3-7.7) k/uL Lymphocytes # 1.7 (1.0-4.8) k/uL Monocytes # 0.5 (0-1.0) k/uL Eosinophils # 0.0 (0-0.7) k/uL Basophils # 0.0 (0-0.2) k/uL Sodium 136 L (137-145) mmol/L Potassium 3.7 (3.5-5.1) mmol/L Chloride 104 (98-107) mmol/L Carbon Dioxide 23 (22-30) mmol/L Anion Gap 9 mmol/L BUN 26 H (9-20) mg/dL Creatinine 1.03 (0.66-1.25) mg/dL Est GFR (CKD-EPI)AfAm >90 (>60 ml/min/1.73 sqM) Est GFR (CKD-EPI)NonAf 79 (>60 ml/min/1.73 sqM) Glucose 114 H (74-99) mg/dL Plasma Lactic Acid Horace (0.7-2.0) mmol/L Calcium 9.4 (8.4-10.2) mg/dL Total Bilirubin 1.0 (0.2-1.3) mg/dL AST 20 (17-59) U/L ALT 21 (4-49) U/L Alkaline Phosphatase 90 (38-126) U/L Total Protein 6.8 (6.3-8.2) g/dL Albumin 4.4 (3.5-5.0) g/dL Amylase 58 (30-110) U/L Lipase 85 (23-300) U/L Urine Color Yellow Urine Appearance Cloudy (Clear) Urine pH 5.5 (5.0-8.0) Ur Specific [place] 1.031 (1.001-1.035) Urine Protein 1+ H (Negative) Urine Glucose (UA) Trace H (Negative) Urine Ketones Trace H (Negative) Urine Blood Trace H (Negative) Urine Nitrite Negative (Negative) Urine Bilirubin Negative (Negative) Urine Urobilinogen 2.0 (<2.0) mg/dL Ur Leukocyte Esterase Negative (Negative) Urine RBC 1 (0-5) /hpf Urine WBC 4 (0-5) /hpf Ur Squamous Epith Cells <1 (0-4) /hpf Amorphous Sediment Moderate H (None) /hpf Urine Mucus Many H (None) /hpf 12/06/20 Range/Units 11:41 WBC (3.8-10.6) k/uL RBC (4.30-5.90) m/uL Hgb (13.0-17.5) gm/dL Hct (39.0-53.0) % MCV (80.0-100.0) fL MCH (25.0-35.0) pg MCHC (31.0-37.0) g/dL RDW (11.5-15.5) % Plt Count (150-450) k/uL MPV Neutrophils % % Lymphocytes % % Monocytes % % Eosinophils % % Basophils % % Neutrophils # (1.3-7.7) k/uL Lymphocytes # (1.0-4.8) k/uL Monocytes # (0-1.0) k/uL Eosinophils # (0-0.7) k/uL Basophils # (0-0.2) k/uL Sodium (137-145) mmol/L Potassium (3.5-5.1) mmol/L Chloride (98-107) mmol/L Carbon Dioxide (22-30) mmol/L Anion Gap mmol/L BUN (9-20) mg/dL Creatinine (0.66-1.25) mg/dL Est GFR (CKD-EPI)AfAm (>60 ml/min/1.73 sqM) Est GFR (CKD-EPI)NonAf (>60 ml/min/1.73 sqM) Glucose (74-99) mg/dL Plasma Lactic Acid [place] 1.4 (0.7-2.0) mmol/L Calcium (8.4-10.2) mg/dL Total Bilirubin (0.2-1.3) mg/dL AST (17-59) U/L ALT (4-49) U/L Alkaline Phosphatase (38-126) U/L Total Protein (6.3-8.2) g/dL Albumin (3.5-5.0) g/dL Amylase (30-110) U/L Lipase (23-300) U/L Urine Color Urine Appearance (Clear) Urine pH (5.0-8.0) Ur Specific [place] (1.001-1.035) Urine Protein (Negative) Urine Glucose (UA) (Negative) Urine Ketones (Negative) Urine Blood (Negative) Urine Nitrite (Negative) Urine Bilirubin (Negative) Urine Urobilinogen (<2.0) mg/dL Ur Leukocyte Esterase (Negative) Urine RBC (0-5) /hpf Urine WBC (0-5) /hpf Ur Squamous Epith Cells (0-4) /hpf Amorphous Sediment (None) /hpf Urine Mucus (None) /hpf - Radiology Data Radiology results: report reviewed, image reviewed CT the abdomen and pelvis: Nonspecific abdomen with no obstruction. No acute inflammatory process prostate enlargement. Disposition Clinical Impression: Abdominal pain Disposition: HOME SELF-CARE Condition: Stable Instructions (If sedation given, give patient instructions): Abdominal Pain (ED) Additional Instructions: Please return to the Emergency Department if symptoms worsen or any other concerns. Follow-up with primary care 1-2 days. Follow-up with GI specialist. Tylenol Motrin for pain. Is patient prescribed a controlled substance at d/c from ED?: No Referrals: Markell Rea MD [Primary Care Provider] - 1-2 days Chanel Acosta MD [STAFF PHYSICIAN] - 1-2 days Time of Disposition: 13:18
[2020-12-06 11:33] LABS: Amorphous Sediment,Urine Moderate /hpf; Appearance,Urine Cloudy (Clear); Bilirubin,Urine Negative (Negative); Blood,Urine Trace (Negative); Color,Urine Yellow; Glucose,Urine (UA) Trace (Negative); Ketones,Urine Trace (Negative); Leukocyte Esterase,Urine Negative (Negative); Mucus,Urine Many /hpf; Nitrite,Urine Negative (Negative); PH, Urine 5.5 (5.0-8.0); Protein,Urine 1+ (Negative); RBC,Urine 1 /hpf (0-5); Specific Gravity,Urine 1.031 (1.001-1.035); Squamous Epithelial Cell,Urine <1 /hpf (0-4); WBC,Urine 4 /hpf (0-5)
--- NOTE | 2020-12-06 11:33 | CT ---
EXAMINATION TYPE: CT abdomen pelvis w con DATE OF EXAM: 12/06/2020 COMPARISON: X-ray 12/04/2020 HISTORY: Pelvic pain CT DLP: 1294.1 mGycm Automated exposure control for dose reduction was used. CONTRAST: CT scan of the abdomen pelvis is performed with IV Contrast, patient injected with 100 mL of Isovue 3 00. FINDINGS- LUNG BASES- No significant abnormality is appreciated. LIVER/GB- No gross abnormality is appreciated. PANCREAS- No gross abnormality is seen. SPLEEN- No gross abnormality is seen. ADRENALS- No gross abnormality is seen. KIDNEYS/BLADDER- no hydronephrosis, nephrolithiasis or renal mass. BOWEL-nonspecific abdomen with no obstruction. Appendix not seen. No inflammatory changes right lower quadrant.. LYMPH NODES- No greater than 1cm abdominal or pelvic lymph nodes areappreciated. OSSEOUS STRUCTURES-there is to be a stimulator device extending the from the pelvis with the lead ext ending into the lower thoracic spinal column. Postsurgical changes L5-S1. Multilevel hypertrophic ebonie nges of the spine. . OTHER- Prostate prominent in size. Aorta of normal caliber with no evidence of aneurysm. Small fat-c ontaining anterior abdominal wall hernia IMPRESSION- 1. Nonspecific abdomen with no obstruction. No acute inflammatory process. 2. Prostate enlargement.
[2020-12-06 12:51] LABS: ALT 21 U/L (4-49); AST 20 U/L (17-59); African American GFR (CKD) >90 (>60 ml/min/1.73 sqM); Albumin 4.4 g/dL (3.5-5.0); Alkaline Phosphatase 90 U/L (38-126); Amylase 58 U/L (30-110); Anion Gap 9 mmol/L; Blood Urea Nitrogen 26 mg/dL (9-20); Calcium 9.4 mg/dL (8.4-10.2); Carbon Dioxide 23 mmol/L (22-30); Chloride 104 mmol/L (98-107); Glucose 114 mg/dL (74-99); Lipase 85 U/L (23-300); Non-African American GFR(CKD) 79 (>60 ml/min/1.73 sqM); Potassium 3.7 mmol/L (3.5-5.1); Sodium 136 mmol/L (137-145); Total Protein 6.8 g/dL (6.3-8.2)
[2020-12-06 13:07] LABS: Basophils % (A) 0 %; Eosinophils % (A) 0 %; HCT 45.5 % (39.0-53.0); HGB 15.9 gm/dL (13.0-17.5); Lymphocytes # (A) 1.7 k/uL (1.0-4.8); Lymphocytes % (A) 19 %; MCH 31.4 pg (25.0-35.0); MCV 89.7 fL (80.0-100.0); Mean Platelet Volume 9.3; Monocytes # (A) 0.5 k/uL (0-1.0); Monocytes % (A) 6 %; Neutrophils # (A) 6.6 k/uL (1.3-7.7); Neutrophils % (A) 74 %; Platelet Count 184 k/uL (150-450); RBC 5.07 m/uL (4.30-5.90); RDW 12.6 % (11.5-15.5); WBC 8.9 k/uL (3.8-10.6)
[2020-12-06] MEDS ORDERED: ONDANSETRON 4 MG ODT STARTER PACK 2 TAB BTL PO STA (13:41)
[2020-12-06 14:02] VITALS: BP 160/102; PULSE 76; RESP 20
== END 2020-12-06 14:02 | disposition home or self-care (01) ==
LOC: EC 09:30
DX: R10.84 Generalized abdominal pain (principal); I10 Essential (primary) hypertension; I25.2 Old myocardial infarction; F17.200 Nicotine dependence, unspecified, uncomplicated; Z79.899 Other long term (current) drug therapy; Z90.49 Acquired absence of other specified parts of digestive tract
CPT/HCPCS: 36415; 80053; 82150; 83605; 83690; 85025; 81001; 74177; 96374; 96375; 96361; 99284; J2270; J2405; S0119; Q9967

== ENCOUNTER 2020-12-31 17:26 | Emergency (ER) | payer MEDICARE, OTHER ==
[2020-12-31 18:01] LABS: Basophils % (A) 1 %; Eosinophils # (A) 0.1 k/uL (0-0.7); Eosinophils % (A) 1 %; HCT 49.7 % (39.0-53.0); HGB 17.3 gm/dL (13.0-17.5); Lymphocytes # (A) 2.2 k/uL (1.0-4.8); Lymphocytes % (A) 31 %; MCH 31.5 pg (25.0-35.0); MCHC 34.9 g/dL (31.0-37.0); MCV 90.2 fL (80.0-100.0); Mean Platelet Volume 8.6; Monocytes # (A) 0.4 k/uL (0-1.0); Monocytes % (A) 5 %; Neutrophils # (A) 4.3 k/uL (1.3-7.7); Neutrophils % (A) 61 %; Platelet Count 175 k/uL (150-450); RBC 5.51 m/uL (4.30-5.90); WBC 7.1 k/uL (3.8-10.6)
[2020-12-31 18:11] LABS: INR 0.9 (<1.2); Partial Thromboplastin Time 24.1 sec (22.0-30.0)
[2020-12-31 18:18] LABS: ALT 29 U/L (4-49); AST 26 U/L (17-59); African American GFR (CKD) >90 (>60 ml/min/1.73 sqM); Albumin 4.8 g/dL (3.5-5.0); Alkaline Phosphatase 98 U/L (38-126); Anion Gap 9 mmol/L; Blood Urea Nitrogen 16 mg/dL (9-20); Calcium 9.8 mg/dL (8.4-10.2); Carbon Dioxide 26 mmol/L (22-30); Chloride 104 mmol/L (98-107); Glucose 123 mg/dL (74-99); Magnesium 2.4 mg/dL (1.6-2.3); Non-African American GFR(CKD) >90 (>60 ml/min/1.73 sqM); Potassium 4.2 mmol/L (3.5-5.1); Sodium 139 mmol/L (137-145); Total Bilirubin 0.6 mg/dL (0.2-1.3); Total Protein 7.6 g/dL (6.3-8.2)
--- NOTE | 2020-12-31 18:36 | XR ---
EXAMINATION TYPE: XR chest 2V DATE OF EXAM: 12/31/2020 COMPARISON: 12/04/2020 HISTORY: Chest pain TECHNIQUE: FINDINGS: Heart and mediastinum are normal. Lungs are clear. Diaphragm is normal. Bony thorax is inta ct. There is neural stimulator in the mid thoracic spine. IMPRESSION: No active cardiopulmonary disease. Inspiration improved compared to last exam.
[2020-12-31] MEDS ORDERED: KETOROLAC 15 MG/ML 1 ML VIAL IVP STA (19:11)
[2020-12-31] MEDS ORDERED: DIAZEPAM 5 MG/ML 2 ML INJ IVP STA (19:11)
[2020-12-31] MEDS ORDERED: ASPIRIN 81 MG PO STA (19:11)
--- NOTE | 2020-12-31 21:01 | ED ---
General Adult HPI - General Chief complaint: Chest Pain Stated complaint: Chest Pain,Headache Time Seen by Provider: 12/31/20 19:00 Source: patient Mode of arrival: wheelchair Limitations: no limitations - History of Present Illness Initial comments: 60-year-old male patient with past medical history significant for coronary artery disease occipital neuralgia presents to the emergency department today for evaluation of left-sided headache. States he's had a headache for the last 5 days. States it is consistent with his pain patterns related to occipital neuralgia however did seem to last longer than usual. Does report left-sided blurred vision. States today approximately 5 hours prior to arrival the pain started radiating into the left shoulder and into the left side of his chest. States he did feel somewhat short of breath and nauseated. Denies any vomiting or sweats. Does report hot and cold chills. Denies taking any medication for his symptoms. Denies any recent head injury. Patient denies any recent rash, cough, abdominal pain, vomiting, diarrhea, constipation, back pain, numbness, tingling, dizziness, weakness, hematuria, dysuria, urinary urgency, urinary frequency, or any other complaints. - Related Data Home Medications Medication Instructions Recorded Confirmed Atorvastatin [Lipitor] 40 mg PO HS 01/19/18 12/31/20 Clopidogrel [Plavix] 75 mg PO DAILY 01/19/18 12/31/20 Metoprolol Succinate (ER) [Toprol 50 mg PO DAILY 01/19/18 12/31/20 XL] DULoxetine HCL [Cymbalta] 30 mg PO DAILY 02/16/19 12/31/20 Ezetimibe [Zetia] 10 mg PO HS 11/17/19 12/31/20 Losartan Potassium 100 mg PO DAILY 11/17/19 12/31/20 hydroCHLOROthiazide [Hydrodiuril] 50 mg PO DAILY 11/17/19 12/31/20 Tamsulosin HCl [Flomax] 0.4 mg PO DAILY 11/26/19 12/31/20 Testosterone Cypionate 200 mg IM Q14D 11/26/19 12/31/20 [Depo-Testosterone] Ketorolac [Toradol] 10 mg PO Q6HR PRN 12/31/20 12/31/20 Metaxalone 800 mg PO TID 12/31/20 12/31/20 Pregabalin [Lyrica] 200 mg PO TID 12/31/20 12/31/20 Previous Rx's Medication Instructions Recorded Nitroglycerin Sl Tabs [Nitrostat] 0.4 mg SUBLINGUAL Q5M PRN tab 11/27/19 Allergies Allergy/AdvReac Type Severity Reaction Status Date / Time No Known Allergies Allergy Verified 12/31/20 20:07 Review of Systems ROS Statement: Those systems with pertinent positive or pertinent negative responses have been documented in the HPI. ROS Other: All systems not noted in ROS Statement are negative. Past Medical History Past Medical History: GERD/Reflux, Hypertension, Myocardial Infarction ([place]) Additional Past Medical History / Comment(s): joint pain, chronic pain, [place] 2010, chronic left side pain, on lyrica Last Myocardial Infarction Date:: 2010 History of Any Multi-Drug Resistant Organisms: None Reported Past Surgical History: Cholecystectomy, Heart Catheterization With Stent Additional Past Surgical History / Comment(s): back fusion L5 S1, right wrist tendon repair Past Anesthesia/Blood Transfusion Reactions: No Reported Reaction Date of Last Stent Placement:: 2010 Past Psychological History: Depression Smoking Status: Current some day smoker Past Alcohol Use History: Rare Past Drug Use History: None Reported - Past Family History Father Family Medical History: Cancer, Coronary Artery Disease (CAD) Additional Family Medical History / Comment(s): prostate cancer Mother Family Medical History: Coronary Artery Disease (CAD) General Exam Limitations: no limitations General appearance: alert, in no apparent distress, other (This is a well- developed, well-nourished adult male patient in no acute distress) Eye exam: Present: normal appearance, PERRL, EOMI. Absent: scleral icterus, conjunctival injection, nystagmus, periorbital swelling ENT exam: Present: normal exam, normal oropharynx, mucous membranes moist Respiratory exam: Present: normal lung sounds bilaterally. Absent: respiratory distress, wheezes, rales, rhonchi, stridor Cardiovascular Exam: Present: regular rate, normal rhythm, normal heart sounds. Absent: systolic murmur, diastolic murmur, rubs, gallop, clicks GI/Abdominal exam: Present: soft, normal bowel sounds. Absent: distended, tenderness, guarding, rebound, rigid Neurological exam: Present: alert, oriented X3, CN II-XII intact, normal gait Expanded Speech: Present: fluid speech Cranial nerves: EOM's Intact: Normal, Nystagmus: Normal Motor strength exam: RUE: 5, LUE: 5, RLE: 5, LLE: 5 Psychiatric exam: Present: normal affect, normal mood Skin exam: Present: warm, dry, intact, normal color. Absent: rash Course Vital Signs 12/31/20 12/31/20 17:32 20:27 Temperature 98.8 F Pulse Rate 82 75 Respiratory 20 16 Rate Blood Pressure 163/103 146/96 O2 Sat by Pulse 98 98 Oximetry EKG Findings - EKG Comments: EKG Findings:: EKG obtained at 1743 shows normal sinus rhythm with a ventricular rate 74, OR interval 160, QRS duration 84, QT 360, QTC 399. No evidence of ST elevation or depression. Medical Decision Making - Medical Decision Making 60-year-old male patient presents to the emergency department today for evaluation of left-sided headache and left-sided chest pain. Physical examination is unremarkable. Lungs are clear to auscultation with good air movement. He is neurologically intact with no focal deficits. EKG was sinus rhythm with no ST elevation or depression. Initial labs are unremarkable, troponin negative. We did repeat troponin was also negative. I did discuss findings results with him. He was given some pain medication and muscle relaxer. He states he is feeling somewhat better. He'll be discharged with a Tylenol codeine starter pack. 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 Return parameters were discussed in detail. He verbalizes understanding and agrees with this plan. Discussed with my attending Dr. Greene. - Lab Data Result diagrams: 12/31/20 17:45 12/31/20 17:45 Lab Results 12/31/20 12/31/20 12/31/20 Range/Units 17:45 17:45 17:45 WBC 7.1 (3.8-10.6) k/uL RBC 5.51 (4.30-5.90) m/uL Hgb 17.3 (13.0-17.5) gm/dL Hct 49.7 (39.0-53.0) % MCV 90.2 (80.0-100.0) fL MCH 31.5 (25.0-35.0) pg MCHC 34.9 (31.0-37.0) g/dL RDW 13.0 (11.5-15.5) % Plt Count 175 (150-450) k/uL MPV 8.6 Neutrophils % 61 % Lymphocytes % 31 % Monocytes % 5 % Eosinophils % 1 % Basophils % 1 % Neutrophils # 4.3 (1.3-7.7) k/uL Lymphocytes # 2.2 (1.0-4.8) k/uL Monocytes # 0.4 (0-1.0) k/uL Eosinophils # 0.1 (0-0.7) k/uL Basophils # 0.0 (0-0.2) k/uL PT 10.0 (9.0-12.0) sec INR 0.9 (<1.2) APTT 24.1 (22.0-30.0) sec Sodium 139 (137-145) mmol/L Potassium 4.2 (3.5-5.1) mmol/L Chloride 104 (98-107) mmol/L Carbon Dioxide 26 (22-30) mmol/L Anion Gap 9 mmol/L BUN 16 (9-20) mg/dL Creatinine 0.92 (0.66-1.25) mg/dL Est GFR (CKD-EPI)AfAm >90 (>60 ml/min/1.73 sqM) Est GFR (CKD-EPI)NonAf >90 (>60 ml/min/1.73 sqM) Glucose 123 H (74-99) mg/dL Calcium 9.8 (8.4-10.2) mg/dL Magnesium 2.4 H (1.6-2.3) mg/dL Total Bilirubin 0.6 (0.2-1.3) mg/dL AST 26 (17-59) U/L ALT 29 (4-49) U/L Alkaline Phosphatase 98 (38-126) U/L Troponin I (0.000-0.034) ng/mL Total Protein 7.6 (6.3-8.2) g/dL Albumin 4.8 (3.5-5.0) g/dL 12/31/20 12/31/20 Range/Units 17:45 20:04 WBC (3.8-10.6) k/uL RBC (4.30-5.90) m/uL Hgb (13.0-17.5) gm/dL Hct (39.0-53.0) % MCV (80.0-100.0) fL MCH (25.0-35.0) pg MCHC (31.0-37.0) g/dL RDW (11.5-15.5) % Plt Count (150-450) k/uL MPV Neutrophils % % Lymphocytes % % Monocytes % % Eosinophils % % Basophils % % Neutrophils # (1.3-7.7) k/uL Lymphocytes # (1.0-4.8) k/uL Monocytes # (0-1.0) k/uL Eosinophils # (0-0.7) k/uL Basophils # (0-0.2) k/uL PT (9.0-12.0) sec INR (<1.2) APTT (22.0-30.0) sec Sodium (137-145) mmol/L Potassium (3.5-5.1) mmol/L Chloride (98-107) mmol/L Carbon Dioxide (22-30) mmol/L Anion Gap mmol/L BUN (9-20) mg/dL Creatinine (0.66-1.25) mg/dL Est GFR (CKD-EPI)AfAm (>60 ml/min/1.73 sqM) Est GFR (CKD-EPI)NonAf (>60 ml/min/1.73 sqM) Glucose (74-99) mg/dL Calcium (8.4-10.2) mg/dL Magnesium (1.6-2.3) mg/dL Total Bilirubin (0.2-1.3) mg/dL AST (17-59) U/L ALT (4-49) U/L Alkaline Phosphatase (38-126) U/L Troponin I <0.012 <0.012 (0.000-0.034) ng/mL Total Protein (6.3-8.2) g/dL Albumin (3.5-5.0) g/dL - Radiology Data Radiology results: report reviewed, image reviewed Two-view x-ray of the chest is obtained. Report reviewed in its entirety. Impression by Dr. Mcmillan shows no active cardio pulmonary disease. Inspiration improved compared to last exam. Disposition Clinical Impression: Headache, Chest pain Disposition: HOME SELF-CARE Condition: Good Instructions (If sedation given, give patient instructions): Chest Pain (ED), General Headache (ED) Additional Instructions: Follow-up with your primary care physician for recheck in 1-2 days. Return to the emergency department immediately for any new, worsening, or concerning symptoms. Is patient prescribed a controlled substance at d/c from ED?: No Referrals: Markell Rea MD [Primary Care Provider] - 1-2 days Time of Disposition: 21:07
[2020-12-31] MEDS ORDERED: ACET/COD 300 MG/30 MG STARTER PACK 6 TAB BTL PO STA (21:07)
[2020-12-31 21:21] VITALS: BP 138/94; PULSE 67; RESP 18; TEMP 97.8
== END 2020-12-31 21:27 | disposition home or self-care (01) ==
LOC: EC 17:26
DX: R07.89 Other chest pain (principal); R51.9 Headache, unspecified; R06.02 Shortness of breath; R11.0 Nausea; H53.8 Other visual disturbances; F17.200 Nicotine dependence, unspecified, uncomplicated; I25.2 Old myocardial infarction; I10 Essential (primary) hypertension; Z79.899 Other long term (current) drug therapy; Z79.02 Long term (current) use of antithrombotics/antiplatelets
CPT/HCPCS: 36415; 93005; 80053; 83735; 84484; 85025; 85610; 85730; 71046; 99285; 96374; 96375; J3360; J1885

== ENCOUNTER 2021-03-22 11:00 | Emergency (ER) | payer MEDICARE, OTHER ==
[2021-03-22 11:08] VITALS: BP 147/96; PULSE 79; RESP 20; TEMP 98.2
--- NOTE | 2021-03-22 12:26 | US ---
EXAMINATION TYPE: US venous doppler duplex LE LT DATE OF EXAM: 03/22/2021 11:44 AM COMPARISON: NONE CLINICAL HISTORY: 60-year-old male with fall 4 days ago, no h/o DVT, on Plavix SIDE PERFORMED: Left TECHNIQUE: The lower extremity deep venous system is examined utilizing real time linear array sonog lawrence with graded compression, doppler sonography and color-flow sonography. FINDINGS: VESSELS IMAGED: Common Femoral Vein Deep Femoral Vein Greater Saphenous Vein * Femoral Vein Popliteal Vein Small Saphenous Vein * Proximal Calf Veins (* superficial vessels) Left Leg: Negative for DVT IMPRESSION: No evidence for DVT within the left lower extremity imaged from the groin to the upper calf.
--- NOTE | 2021-03-22 12:28 | XR ---
EXAMINATION TYPE: XR knee complete LT, XR tibia fibula LT DATE OF EXAM: 03/22/2021 CLINICAL HISTORY: Pain after fall injury. TECHNIQUE: Three views of the left knee are obtained. 2 views left leg. COMPARISON: None. FINDINGS: There is no acute fracture/dislocation evident in left knee. The tri-compartment joint sp aces appear within normal limits. The overlying soft tissue appears unremarkable. Images of the left leg show no acute displaced fracture. Ankle mortise symmetry is maintained. [place]ajaro ing soft tissue is unremarkable. IMPRESSION: There is no acute fracture or dislocation in the left leg or knee.
--- NOTE | 2021-03-22 12:38 | ED ---
General Adult HPI - General Chief complaint: Extremity Injury, Lower Stated complaint: lt leg injury Time Seen by Provider: 03/22/21 11:11 Source: patient, RN notes reviewed, old records reviewed Mode of arrival: ambulatory Limitations: no limitations - History of Present Illness Initial comments: 60-year-old male presents with injury to the left leg. Patient had been walking in the [place], and had at his left lowe trapped between a log. He's this occurred about for 5 days ago. He's had pain both with ambulation at rest. As well as some bruising and swelling. No numbness or tingling to the foot. The pain begins just below the knee between the knee and ankle. No other injuries reported. - Related Data Home Medications Medication Instructions Recorded Confirmed Atorvastatin [Lipitor] 40 mg PO HS 01/19/18 12/31/20 Clopidogrel [Plavix] 75 mg PO DAILY 01/19/18 12/31/20 Metoprolol Succinate (ER) [Toprol 50 mg PO DAILY 01/19/18 12/31/20 XL] DULoxetine HCL [Cymbalta] 30 mg PO DAILY 02/16/19 12/31/20 Ezetimibe [Zetia] 10 mg PO HS 11/17/19 12/31/20 Losartan Potassium 100 mg PO DAILY 11/17/19 12/31/20 hydroCHLOROthiazide [Hydrodiuril] 50 mg PO DAILY 11/17/19 12/31/20 Tamsulosin HCl [Flomax] 0.4 mg PO DAILY 11/26/19 12/31/20 Testosterone Cypionate 200 mg IM Q14D 11/26/19 12/31/20 [Depo-Testosterone] Ketorolac [Toradol] 10 mg PO Q6HR PRN 12/31/20 12/31/20 Metaxalone 800 mg PO TID 12/31/20 12/31/20 Pregabalin [Lyrica] 200 mg PO TID 12/31/20 12/31/20 Previous Rx's Medication Instructions Recorded Nitroglycerin Sl Tabs [Nitrostat] 0.4 mg SUBLINGUAL Q5M PRN tab 11/27/19 Cephalexin [Keflex] 500 mg PO QID 10 Days #40 cap 03/22/21 Allergies Allergy/AdvReac Type Severity Reaction Status Date / Time No Known Allergies Allergy Verified 03/22/21 11:06 Review of Systems ROS Statement: Those systems with pertinent positive or pertinent negative responses have been documented in the HPI. ROS Other: All systems not noted in ROS Statement are negative. Past Medical History Past Medical History: GERD/Reflux, Hypertension, Myocardial Infarction ([place]) Additional Past Medical History / Comment(s): joint pain, chronic pain, [place] 2010, chronic left side pain, on lyrica Last Myocardial Infarction Date:: 2010 History of Any Multi-Drug Resistant Organisms: None Reported Past Surgical History: Cholecystectomy, Heart Catheterization With Stent Additional Past Surgical History / Comment(s): back fusion L5 S1, right wrist tendon repair Past Anesthesia/Blood Transfusion Reactions: No Reported Reaction Date of Last Stent Placement:: 2010 Past Psychological History: Depression Smoking Status: Current some day smoker Past Alcohol Use History: Rare Past Drug Use History: None Reported - Past Family History Father Family Medical History: Cancer, Coronary Artery Disease (CAD) Additional Family Medical History / Comment(s): prostate cancer Mother Family Medical History: Coronary Artery Disease (CAD) General Exam Limitations: no limitations General appearance: alert, in no apparent distress Head exam: Present: atraumatic, normocephalic Eye exam: Present: normal appearance, PERRL ENT exam: Present: normal exam Neck exam: Present: normal inspection. Absent: tenderness, meningismus Respiratory exam: Present: normal lung sounds bilaterally. Absent: respiratory distress Cardiovascular Exam: Present: regular rate, normal rhythm GI/Abdominal exam: Absent: distended Extremities exam: Present: tenderness, calf tenderness, other (2 areas of abr asion with surrounding erythema. There is ecchymosis throughout the left lower extremity. Distal pulses are intact 40 is normal-appearing. There is no gross deformity.) Course Vital Signs 03/22/21 11:06 Temperature 98.2 F Pulse Rate 79 Respiratory 20 Rate Blood Pressure 147/96 O2 Sat by Pulse 97 Oximetry Medical Decision Making - Medical Decision Making 60-year-old male with left leg injury, abrasion, ecchymosis in the left lower leg. X-rays are performed which are negative for acute bony abnormality. There is no ultrasound evidence of DVT. There is some signs of superficial cellulitis and the patient will be started on antibiotic. He's given return pa rameters and will follow-up with his primary care physician. Disposition Clinical Impression: Abrasion, Cellulitis, Contusion Disposition: HOME SELF-CARE Instructions (If sedation given, give patient instructions): Abrasion (ED), Cellulitis (ED) Prescriptions: Cephalexin [Keflex] 500 mg PO QID 10 Days #40 cap Is patient prescribed a controlled substance at d/c from ED?: No Referrals: Markell Rea MD [Primary Care Provider] - 1-2 days Time of Disposition: 12:38
== END 2021-03-22 12:40 | disposition home or self-care (01) ==
LOC: EC 11:00
DX: S80.12XA Contusion of left lower leg, initial encounter (principal); L03.116 Cellulitis of left lower limb; R22.42 Localized swelling, mass and lump, left lower limb; F17.200 Nicotine dependence, unspecified, uncomplicated; I10 Essential (primary) hypertension; I25.2 Old myocardial infarction; Z79.899 Other long term (current) drug therapy; Z79.02 Long term (current) use of antithrombotics/antiplatelets; W23.0XXA Caught, crushed, jammed, or pinched between moving objects, initial encounter; Y92.89 Other specified places as the place of occurrence of the external cause
CPT/HCPCS: 99284

== ENCOUNTER 2021-04-30 13:16 | Emergency (ER) | payer MEDICARE, OTHER ==
[2021-04-30 13:31] VITALS: BP 162/96; PULSE 77; RESP 16; TEMP 98.5
[2021-04-30] MEDS ORDERED: KETOROLAC 15 MG/ML 1 ML VIAL IM STA (13:53)
[2021-04-30] MEDS ORDERED: HYDROmorphone 1 MG/ML 1 ML SYRINGE IM STA (13:53)
--- NOTE | 2021-04-30 13:57 | ED ---
General Adult HPI - General Chief complaint: Back Pain/Injury Stated complaint: lt leg pain Time Seen by Provider: 04/30/21 13:48 Source: patient, RN notes reviewed Mode of arrival: ambulatory Limitations: no limitations - History of Present Illness Initial comments: Patient is a pleasant 60-year-old male presenting to the emergency department with low back pain. Patient has chronic back pain. Patient does have spinal stimulator placed for over a year ago. Patient states discomfort does radiate to the left leg. Patient does have history of similar symptoms multiple times previously associated with back problems. Symptoms started worsening yesterday. No injury. No fever. No weakness. No loss of sensation. No incontinence or retention of bowel or bladder. - Related Data Home Medications Medication Instructions Recorded Confirmed Atorvastatin [Lipitor] 40 mg PO HS 01/19/18 12/31/20 Clopidogrel [Plavix] 75 mg PO DAILY 01/19/18 12/31/20 Metoprolol Succinate (ER) [Toprol 50 mg PO DAILY 01/19/18 12/31/20 XL] DULoxetine HCL [Cymbalta] 30 mg PO DAILY 02/16/19 12/31/20 Ezetimibe [Zetia] 10 mg PO HS 11/17/19 12/31/20 Losartan Potassium 100 mg PO DAILY 11/17/19 12/31/20 hydroCHLOROthiazide [Hydrodiuril] 50 mg PO DAILY 11/17/19 12/31/20 Tamsulosin HCl [Flomax] 0.4 mg PO DAILY 11/26/19 12/31/20 Testosterone Cypionate 200 mg IM Q14D 11/26/19 12/31/20 [Depo-Testosterone] Ketorolac [Toradol] 10 mg PO Q6HR PRN 12/31/20 12/31/20 Metaxalone 800 mg PO TID 12/31/20 12/31/20 Pregabalin [Lyrica] 200 mg PO TID 12/31/20 12/31/20 Previous Rx's Medication Instructions Recorded Nitroglycerin Sl Tabs [Nitrostat] 0.4 mg SUBLINGUAL Q5M PRN tab 11/27/19 Cephalexin [Keflex] 500 mg PO QID 10 Days #40 cap 03/22/21 predniSONE [Deltasone] 20 mg PO BID #10 tab 04/30/21 Allergies Allergy/AdvReac Type Severity Reaction Status Date / Time No Known Allergies Allergy Verified 04/30/21 13:31 Review of Systems ROS Statement: Those systems with pertinent positive or pertinent negative responses have been documented in the HPI. ROS Other: All systems not noted in ROS Statement are negative. Constitutional: Denies: fever Eyes: Denies: eye pain ENT: Denies: ear pain Respiratory: Denies: cough Cardiovascular: Denies: chest pain Endocrine: Denies: fatigue Gastrointestinal: Denies: abdominal pain Genitourinary: Denies: dysuria Musculoskeletal: Denies: back pain Skin: Denies: rash Neurological: Denies: weakness, numbness Past Medical History Past Medical History: GERD/Reflux, Hypertension, Myocardial Infarction ([place]) Additional Past Medical History / Comment(s): joint pain, chronic pain, [place] 2010, chronic left side pain, on lyrica Last Myocardial Infarction Date:: 2010 History of Any Multi-Drug Resistant Organisms: None Reported Past Surgical History: Cholecystectomy, Heart Catheterization With Stent Additional Past Surgical History / Comment(s): back fusion L5 S1, right wrist tendon repair Past Anesthesia/Blood Transfusion Reactions: No Reported Reaction Date of Last Stent Placement:: 2010 Past Psychological History: Depression Smoking Status: Current some day smoker Past Alcohol Use History: Rare Past Drug Use History: None Reported - Past Family History Father Family Medical History: Cancer, Coronary Artery Disease (CAD) Additional Family Medical History / Comment(s): prostate cancer Mother Family Medical History: Coronary Artery Disease (CAD) General Exam Limitations: no limitations General appearance: alert, in no apparent distress Head exam: Present: normocephalic Eye exam: Present: normal appearance Respiratory exam: Present: normal lung sounds bilaterally Cardiovascular Exam: Present: regular rate, normal rhythm Expanded Peripheral pulses: 2+: Posterior Tibialis (R), Posterior Tibialis (L) GI/Abdominal exam: Present: soft. Absent: tenderness Extremities exam: Present: normal inspection. Absent: tenderness Back exam: Present: tenderness (Mild tenderness lower lumbar) Neurological exam: Present: alert. Absent: motor sensory deficit Expanded Sensory exam: Lower Extremity Light Touch: Normal Motor strength exam: RLE: 5, LLE: 5 Psychiatric exam: Present: normal affect, normal mood Skin exam: Present: normal color Course Vital Signs 04/30/21 13:27 Temperature 98.5 F Pulse Rate 77 Respiratory 16 Rate Blood Pressure 162/96 O2 Sat by Pulse 96 Oximetry Disposition Clinical Impression: Low back pain Disposition: HOME SELF-CARE Condition: Stable Instructions (If sedation given, give patient instructions): Acute Low Back Pain (ED) Additional Instructions: Please do follow-up with your back doctor and primary care physician in the next day or 2 for recheck. Prescription for steroids has been sent to your pharmacy. Return for weakness, loss of control of bowel or bladder, loss of sensation, worsening or changing symptoms or other concerns. Prescriptions: predniSONE [Deltasone] 20 mg PO BID #10 tab Is patient prescribed a controlled substance at d/c from ED?: No Referrals: Markell Rea MD [Primary Care Provider] - 1-2 days Time of Disposition: 13:56
== END 2021-04-30 14:17 | disposition home or self-care (01) ==
LOC: EC 13:16
DX: M54.50 Low back pain, unspecified (principal); I25.2 Old myocardial infarction; I10 Essential (primary) hypertension
CPT/HCPCS: 99283; 96372; J1170; J1885

== ENCOUNTER 2021-05-01 10:01 | Observation (INO) | payer MEDICARE, OTHER ==
[2021-05-01 10:09] VITALS: RESP 18
[2021-05-01] MEDS ORDERED: HYDROmorphone 0.5 MG/0.5 ML SYRINGE IVP STA (10:35)
--- NOTE | 2021-05-01 11:00 | ED ---
Back Pain [facility] - General Chief Complaint: Back Pain/Injury Stated Complaint: revisit-leg numbness, pain Time Seen by Provider: 05/01/21 10:14 Source: patient, RN notes reviewed Limitations: no limitations - History of Present Illness Initial Comments: This is a 60-year-old male who presents to the emergency department for lower back pain. Yesterday he complained of lower back pain with radiation to the left lower extremity. He was given a prescription for prednisone, however this has not helped his symptoms at all. This morning the pain got much worse, and he experienced an episode of urinary incontinence around 5:30am. He did urinate since then, around 8am, and was not incontinent at that time, however he did have less of a sensation and decreased urgency. He feels that he has difficulty walking, and has now noticed numbness going down the right leg. He has now also noticed symptoms consistent with saddle anesthesia. He tried adjusting the spinal stimulator with no relief. Spinal Stimulator - Laura Pressley in 2020 L5-S1 fusion - Rosales Bowles in 2013 Complaint: back pain Radiation: left leg, right leg Consistency: constant Improves With: none Associated Symptoms: weakness, numbness, difficulty walking, incontinence - Related Data Home Medications Medication Instructions Recorded Confirmed Atorvastatin [Lipitor] 40 mg PO HS 01/19/18 05/01/21 Clopidogrel [Plavix] 75 mg PO DAILY 01/19/18 05/01/21 Metoprolol Succinate (ER) [Toprol 50 mg PO DAILY 01/19/18 05/01/21 XL] DULoxetine HCL [Cymbalta] 30 mg PO DAILY 02/16/19 05/01/21 Ezetimibe [Zetia] 10 mg PO DAILY 11/17/19 05/01/21 Losartan Potassium 100 mg PO DAILY 11/17/19 05/01/21 hydroCHLOROthiazide [Hydrodiuril] 50 mg PO DAILY 11/17/19 05/01/21 Testosterone Cypionate 200 mg IM Q14D 11/26/19 05/01/21 [Depo-Testosterone] Metaxalone 800 mg PO TID 12/31/20 05/01/21 Pregabalin [Lyrica] 200 mg PO TID 12/31/20 05/01/21 Omeprazole 20 mg PO DAILY 05/01/21 05/01/21 Previous Rx's Medication Instructions Recorded Nitroglycerin Sl Tabs [Nitrostat] 0.4 mg SUBLINGUAL Q5M PRN tab 11/27/19 predniSONE [Deltasone] 20 mg PO BID #10 tab 04/30/21 Allergies Allergy/AdvReac Type Severity Reaction Status Date / Time No Known Allergies Allergy Verified 05/01/21 11:35 Review of Systems ROS Statement: Those systems with pertinent positive or pertinent negative responses have been documented in the HPI. ROS Other: All systems not noted in ROS Statement are negative. Constitutional: Denies: fever, chills Respiratory: Denies: cough, dyspnea Cardiovascular: Denies: chest pain, palpitations Gastrointestinal: Denies: abdominal pain, nausea, vomiting, diarrhea Genitourinary: Reports: other (urinary incontinence ). Denies: urgency, dysuria Musculoskeletal: Reports: back pain Skin: Denies: rash, lesions Neurological: Reports: numbness (in the pelvic). Denies: headache, weakness Past Medical History Past Medical History: GERD/Reflux, Hypertension, Myocardial Infarction ([place]) Additional Past Medical History / Comment(s): joint pain, chronic pain, [place] 2010, chronic left side pain, on lyrica Last Myocardial Infarction Date:: 2010 History of Any Multi-Drug Resistant Organisms: None Reported Past Surgical History: Cholecystectomy, Heart Catheterization With Stent Additional Past Surgical History / Comment(s): back fusion L5 S1, right wrist tendon repair Past Anesthesia/Blood Transfusion Reactions: No Reported Reaction Date of Last Stent Placement:: 2010 Past Psychological History: Depression Smoking Status: Current some day smoker Past Alcohol Use History: Rare Past Drug Use History: None Reported - Past Family History Father Family Medical History: Cancer, Coronary Artery Disease (CAD) Additional Family Medical History / Comment(s): prostate cancer Mother Family Medical History: Coronary Artery Disease (CAD) General Exam Limitations: no limitations General appearance: alert, in no apparent distress Head exam: Present: atraumatic, normocephalic, normal inspection Respiratory exam: Present: normal lung sounds bilaterally. Absent: respiratory distress, wheezes, rales, rhonchi, stridor Cardiovascular Exam: Present: regular rate, normal rhythm, normal heart sounds. Absent: systolic murmur, diastolic murmur, rubs, gallop, clicks Extremities exam: Present: normal capillary refill, other (MSK strength 2/5 in the right LE and 0/5 in the left LE. Patellar DTRs 1/4 bilaterally. ). Absent: joint swelling Left Hip exam: Present: normal inspection. Absent: full ROM, tenderness, swelling, laceration, ecchymosis, deformity, erythema Upper Leg exam: Present: normal inspection. Absent: full ROM (Patient unable to life leg more than about 10 degrees on the left and 30 degrees on the right. ), tenderness Knee exam: Present: normal inspection Lower Leg exam: Present: normal inspection Ankle exam: Present: normal inspection Foot/Toe exam: Present: normal inspection Neurovascular tendon exam: Present: sensory deficit (Decreased sensation to light touch in the pelvis and bilateral lower extremities. ), decreased fine/light touch. Absent: pulse deficit, abnormal cap refill, extremity cold to touch, pallor Neurological exam: Present: alert, oriented X3, CN II-XII intact Psychiatric exam: Present: normal affect, normal mood Skin exam: Present: warm, dry, intact, normal color. Absent: rash Course Vital Signs 05/01/21 05/01/21 05/01/21 10:04 11:52 13:33 Temperature 98.7 F Pulse Rate 82 79 62 Respiratory 18 18 18 Rate Blood Pressure 151/90 144/95 144/92 O2 Sat by Pulse 97 96 94 L Oximetry Medical Decision Making - Medical Decision Making This is a 60-year-old male who presents to the emergency department for lower back pain. With the urinary incontinence and symptoms of saddle anesthesia, there is concern for cauda equina syndrome. The MRI is the best way to evaluate for this, however the patient would need his spinal stimulator turned off and this would be a very time consuming process to complete in the emergency department. We will proceed with computed tomography scan of the lumbar spine and pelvis for further evaluation. CT scan revealed multilevel DDD and intact bilateral L5-S1 facet fusion, but was otherwise unremarkable. IV started and 0.5mg of Dilaudid provided, as well as 16mg of Decadron per guidelines for cauda equina syndrome. Patient's MSK strength was slightly improved following dilauded administration, however it was still significantly reduced. Started the patient on 60mg of IV Solumedrol q12hrs per the recommendation of orthopedics. Orthopedics recommended a CT myelogram, however, the patient would have to hold his plavix for 5 days before proceeding. Based on the MRI conditions for the spinal cord stimulator, he needs a 1.5T MRI for evaluation, and this facility only has a 3T MRI machine. After discussion with orthopedics, the patient will be admitted to see how he does clinically for the next few days, with the plan to hold his Plavix for 5 days in the event he needs to proceed with the myelogram. His PCP Dr. Rea will be contacted to place the order to have his Plavix held for 5 days. Spinal Cord Stimulator Information: Name: Nevro IPG Model: [id number] Lead Model: [id number] [place] model: [id number] MRI Conditions: - Head or neck scans: 1.5&3T - Torso: 1.5T - Extremities: 1.5&3T - Radiology Data Radiology results: report reviewed, image reviewed Disposition Clinical Impression: Urinary incontinence, Low back pain Disposition: ADMITTED IP TO THIS [facility] Referrals: Markell Rea MD [Primary Care Provider] - 1-2 days
--- NOTE | 2021-05-01 12:36 | CT ---
EXAMINATION TYPE: CT lumbar spine wo con, CT pelvis wo con DATE OF EXAM: 05/01/2021 12:09 PM COMPARISON: CT dated 12/06/2020 HISTORY: Pain urinary incontinence, weakness CT DLP: 1239.4 (accession [id number]), 486.1 (accession [id number]) mGycm Automated exposure control for dose reduction was used. Technique: Unenhanced CT of the lumbar spine and pelvis were performed. Bone and soft tissue window settings are submitted as well as coronal and sagittal reconstructions. FINDINGS: Partially lumbarized S1. Previous L5 and S1 fixation using 2 rods and 4 screws with L5-S1 disc prosth esis. No evidence of prosthesis break. Preserved lumbar lordosis. No significant anterolisthesis or r etrolisthesis. No definite vertebral body collapse or acute displaced fracture. Bilateral L5-S1 facet fusion and osteoarthropathy. Maintained other lumbar intervertebral disc spaces. L1-L2: Normal disc space height. No disc herniation protrusion or central stenosis. No facet joint arthropathy. No evidence for foraminal encroachment. L2-L3: Normal disc space height. No disc herniation protrusion or central stenosis. No facet joint arthropathy. No evidence for foraminal encroachment. L3-L4: Mild diffuse posterior disc bulge, causing no significant central spinal canal stenosis or panchito roforaminal stenosis. L4-L5: Diffuse posterior disc bulge with bilateral small focal foraminal protrusions associated with mild bilateral facet osteoarthropathy, causing mild central spinal canal stenosis and mild right neur oforaminal stenosis. L5-S1: Suboptimal assessment for disc disease due to artifacts from the adjacent prosthesis. No obvio us bony central spinal canal stenosis or neuroforaminal stenosis at that level. Scattered arterial atherosclerotic calcification. No paraspinal lesion. Left flank subcutaneous stimu lator device is noted. Unremarkable hip and sacroiliac joints. No definite acute pelvic bone fracture identified. Moderate fecal loading of the rectum and visualized portion of the colon with mild wall thickening, n onspecific. Slightly enlarged prostate, please correlate with PSA level. Grossly unremarkable urinary bladder. No pelvic lymphadenopathy or collection. Small fat-containing umbilical hernia. IMPRESSION: No definite acute lumbar spine or pelvic bone fracture identified. Postsurgical changes at L5-S1 leve l as described above with a partially lumbarized S1. Multilevel mild DDD, their significance should b e clinically correlated. Other incidental findings as described above. Considering the patient's presentation, further MRI assessment can be considered.
[2021-05-01] MEDS ORDERED: DEXAMETHASONE SOD PHOSPHATE 10 MG/ML 1 ML VIAL IVP STA (13:11)
[2021-05-01] MEDS ORDERED: NALOXONE 0.4 MG/ML 1 ML VIAL IV PRN (14:42)
[2021-05-01] MEDS ORDERED: ONDANSETRON 4 MG/2 ML VIAL IVP PRN (14:47)
[2021-05-01] MEDS ORDERED: ACETAMINOPHEN TAB 325 MG TAB PO PRN (14:47)
[2021-05-01] MEDS ORDERED: HYDROmorphone 0.5 MG/0.5 ML SYRINGE IVP PRN (14:47)
[2021-05-01] MEDS ORDERED: ALPRAZolam 0.25 MG TAB PO PRN (14:47)
[2021-05-01] MEDS: methylPREDNISolone SOD SUCCI 125 MG/2 ML VIAL IV SCH (17:27)
[2021-05-01] MEDS: HYDROmorphone 1 MG/ML 1 ML SYRINGE IVP PRN (20:33)
[2021-05-02] MEDS: HYDROmorphone 1 MG/ML 1 ML SYRINGE IVP PRN ×3 (00:25→13:14)
[2021-05-02] MEDS: methylPREDNISolone SOD SUCCI 125 MG/2 ML VIAL IV SCH ×2 (02:31→14:07)
[2021-05-02 07:21] VITALS: BP 132/72; PULSE 94; TEMP 97.8
--- NOTE | 2021-05-02 13:55 | P.HPOR ---
History of Present Illness H&P Date: 05/02/21 Chief Complaint: Left lower extremity weakness Patient is a pleasant 60-year-old male who has a long history of spinal issues. He presented to the emergency room yesterday as he had seen her weakness at his left lower extremity and had an episode of loss of control of his bladder. He says that since that time here in Hospital he has made improvement in terms of his left leg. He has been able ambulate around his room. He is not able to void on his own and well controlled. He is not having loss of control of his bowels. He is not having any loss of control of his bladder. His main complaint was that of significant left-sided weakness from his shoulder down to his foot. He said that happened a couple days ago without any specific incident and had numbness over his left thigh. 2 days ago he went to the emergency room was given steroids and pain medication which gave him some relief and he was able to be sent home. However yesterday he said he felt worse and was having continued pain at his left leg and thigh numbness of his left thigh and had an episode where he lost control of his bladder early in the morning. He was significantly concerned and presented to the emergency room for this. In the emergency room he had significant difficulty with motion in his left leg. He was started on some pain control and steroid medication. He was admitted to our service. He had evaluation with computed tomography scan of his lumbar spine as well which showed his prior surgery with hardware at L5-S1 and a neurostimulator in place. The computed tomography scan also showed evidence of some fluid collection behind the surgical site at L5-S1. With his new symptoms at his left lower extremity and the findings on computed tomography scan we decided to have him admitted for observation and possible further testing. He is not able have an MRI given his neurostimulator intact but we were considering a CT myelogram. Today he is feeling significant better. He's been able to ambulate. His feels his strength is improved in his lower extremity. He is voiding freely and not having any troubles with his bowels. He denies any fevers or chills he is not having any changes in his vital signs. Review of Systems As stated per HPI. He had lumbar spine fusion with Dr. Roth and avani Anna approximately 11 years ago. He had neuro stimulator placement in [place] with Dr. Zepeda. He says the stimulator has been doing well for him over the past year until just a couple days ago where he had these troubles. He says he has an appointment with his neuro surgeon next week. Past Medical History Past Medical History: GERD/Reflux, Hypertension, Myocardial Infarction ([place]) Additional Past Medical History / Comment(s): joint pain, chronic pain, [place] 2010, chronic left side pain, on lyrica. Patient on disability due to his low back and cardiac issues over the past couple of years Last Myocardial Infarction Date:: 2010 History of Any Multi-Drug Resistant Organisms: None Reported Past Surgical History: Cholecystectomy, Heart Catheterization With Stent Additional Past Surgical History / Comment(s): back fusion L5 S1, right wrist tendon repair Past Anesthesia/Blood Transfusion Reactions: No Reported Reaction Date of Last Stent Placement:: 2010 Past Psychological History: Depression Smoking Status: Current some day smoker Past Alcohol Use History: Rare Past Drug Use History: None Reported - Past Family History Father Family Medical History: Cancer, Coronary Artery Disease (CAD) Additional Family Medical History / Comment(s): prostate cancer Mother Family Medical History: Coronary Artery Disease (CAD) Medications and Allergies Home Medications Medication Instructions Recorded Confirmed Type Atorvastatin [Lipitor] 40 mg PO HS 01/19/18 05/01/21 History Clopidogrel [Plavix] 75 mg PO DAILY 01/19/18 05/01/21 History Metoprolol Succinate (ER) [Toprol 50 mg PO DAILY 01/19/18 05/01/21 History XL] DULoxetine HCL [Cymbalta] 30 mg PO DAILY 02/16/19 05/01/21 History Ezetimibe [Zetia] 10 mg PO DAILY 11/17/19 05/01/21 History Losartan Potassium 100 mg PO DAILY 11/17/19 05/01/21 History hydroCHLOROthiazide [Hydrodiuril] 50 mg PO DAILY 11/17/19 05/01/21 History Testosterone Cypionate 200 mg IM Q14D 11/26/19 05/01/21 History [Depo-Testosterone] Nitroglycerin Sl Tabs [Nitrostat] 0.4 mg SUBLINGUAL Q5M PRN tab 11/27/19 0 05/01/21 Rx Metaxalone 800 mg PO TID 12/31/20 05/01/21 History Pregabalin [Lyrica] 200 mg PO TID 12/31/20 05/01/21 History predniSONE [Deltasone] 20 mg PO BID #10 tab 04/30/21 05/01/21 Rx Omeprazole 20 mg PO DAILY 05/01/21 05/01/21 History oxyCODONE-APAP 5-325MG [Percocet 1 tab PO Q8HR PRN 7 Days #21 tab 05/02/21 Rx 5-325 mg] predniSONE 10 mg PO DIRECTED #24 tab 05/02/21 Rx Allergies Allergy/AdvReac Type Severity Reaction Status Date / Time No Known Allergies Allergy Verified 05/01/21 11:35 Physical Examination Osteopathic Statement: *. No significant issues noted on an osteopathic structural exam other than those noted in the History and Physical/Consult. - L Spine: dermatomal strength & reflexes bilateral Strength: hip flexion: 5/5 (His back incisions are clear. There is no erythema there is no swelling there is no drainage the wounds are well healed. At his lower extremities he has sluggish with his left lower extremity but is able to give produce 5 out of 5 strength with hip flexion and dorsal flexion and plantar flexion..) Strength: hip extension: 5/5 Strength: ankle dorsiflexion: 5/5 (His 5-5 strength with dorsiflexion and plantarflexion bilaterally but is sluggish on the left side. He is some breakaway strength on left side that is able to produce good strength for short periods of time. There is no pain with internal/external rotation of his left hip. There is no clonus. No) Strength: ankle plantar flexion: 5/5 (No clonus no hyperreflexia no saddle paresthesia) Results - Diagnostic results CT Scan - lumbar: report reviewed (Computed tomography scan is reviewed in terms of his lumbar spine shows the hardware was stable fusion L5-S1. There is some disc degeneration L4 5 without obvious herniation or stenosis. There is some fluid collection posterior to the hardware and decompress site.), image reviewed Assessment and Plan Assessment: Left lower extremity radiculopathy Left lower extremity weakness improving Bladder incontinence 1 without recurrence and with good voiding currently History of lumbar fusion L5-S1 about [address] Roth History of thoracolumbar neuro similar placement in [facility] with Dr. Zepeda approximately 1 years ago, with continued active treatment Improving lower extremity strength Improved bladder control Improved ambulation and pain control Plan: Left lower extremity radiculopathy Left lower extremity weakness improving Bladder incontinence 1 without recurrence and with good voiding currently History of lumbar fusion L5-S1 about [address] Roth History of thoracolumbar neuro similar placement in [facility] with Dr. El bazan approximately 1 years ago, with continued active treatment Improving lower extremity strength Improved bladder control Improved ambulation and pain control The patient had seen in change particularly in his left lower extremity over the past couple of days and had an episode of bladder incontinence. The bladder issues resolved as his lower extremity issues seem to be improving. He is able to produce good 5 out of 5 strength at dorsiflexion and plantar flexion and does not have upper motor neuron signs. He does not have a flaccid changes in his lower extremities and is not having any saddle paresthesias. I do not think that he has evidence of any cauda equina issues at this point. The patient has long history of spinal issues with his fusion and his neuro dorsal column stimulator which was placed about a year ago appropriate [place]. He still getting active treatment with the neurosurgeon at [facility] and has an appointment with him next week. I do not see acute need for emergent intervention at this point. The patient was not able have MRI given his neurostimulator. He is also unable to have CT myelogram given his blood thinners. With his improvement I do not think that we need to do emergent testing as long as he continues to improve. I think he will continue to improve with conservative care. The patient is having improvement and I think he can continue to have improvement with a tapering course of oral steroids as well as some pain control. I do not have plans for acute intervention and I think it is okay for the patient be discharged home today with his plan follow up with his neurosurgeon next week. 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 He is established with his own neurosurgeon and has an appointment next week and we'll continue management from there. He understands that he may need further treatment and evaluation of his neurostimulator, however I do not think that he needs emergent surgery at this point it is okayfor him to be discharged home t [place], with his plan to follow up with his neurosurgeon next week..
--- NOTE | 2021-05-02 15:02 | US ---
EXAMINATION TYPE: US venous doppler duplex LE LT DATE OF EXAM: 05/02/2021 2:19 PM COMPARISON: NONE CLINICAL HISTORY: r/o DVT. Pain in left leg. No hx of DVT. SIDE PERFORMED: Left TECHNIQUE: The lower extremity deep venous system is examined utilizing real time linear array sonog lawrence with graded compression, doppler sonography and color-flow sonography. VESSELS IMAGED: Common Femoral Vein Deep Femoral Vein Greater Saphenous Vein * Femoral Vein Popliteal Vein Small Saphenous Vein * Proximal Calf Veins (* superficial vessels) Left Leg: No evidence of DVT in veins imaged at this time. IMPRESSION: No evidence for DVT at this time.
--- NOTE | 2021-05-02 15:56 | CONS ---
CONSULTATION HISTORY OF PRESENT ILLNESS: 60-year-old white male came in today due to urinary incontinence and severe back pain with left leg swelling and numbness in the upper thigh. He had an injury to his left leg a month ago. He came to the hospital. An ultrasound at that time was negative. He has been cleared for discharge from for Neurology standpoint. Discussed with him CT scan reports that show constipation. He has been having diarrhea at home. Maybe he has got diarrhea and constipation putting pressure on his bladder. He has enlarged prostate putting pressure on his bladder. We have to rule out a blood clot in the upper left due to some swelling in the upper thigh prior to discharge. Otherwise with stool regimens. Check BPH treatment for possibly interfering with his urinary continence. He [place] scan shows severe compression in his lower back. MEDICATIONS: Home medications were reviewed. PAST MEDICAL HISTORY: Past medical history was reviewed. SURGICAL HISTORY: See list, was reviewed. MEDICATIONS: See list was reviewed. PHYSICAL EXAMINATION: He is sitting up in bed. His O2 93 on room air. Blood pressure 130s over 70s, temp 97.8, pulse 90, respiratory 16 to 18. CARDIOVASCULAR: S1-S2. LUNGS clear. HEMATOLOGIC: Mild swelling on left upper thigh. He says he has noted swelling there for 2 to 3 days. Questionable redness. He can lift the leg off the bed about 4 inches without severe back pain. GI: Soft distended. ASSESSMENT: 1. Leg swelling, rule out deep vein thrombosis. 2. 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 3. Altered urinary symptoms, suspicious for benign prostatic hypertrophy and constipation, possible fecal blockage causing trouble with his back and urine. PROGNOSIS: Guarded. He can go home if he is negative for DVT to follow up with the back surgeon and will do stool regimens as an outpatient. MMODL / IJN: [id number] /
[2021-05-02] MEDS ORDERED: PREGABALIN 100 MG CAP PO SCH (16:00)
[2021-05-02] MEDS ORDERED: CYCLOBENZAPRINE 10 MG TAB PO SCH (16:00)
[2021-05-02] MEDS ORDERED: ATORVASTATIN 40 MG TAB PO SCH (21:00)
[2021-05-03] MEDS ORDERED: EZETIMIBE 10 MG TAB PO SCH (09:00)
[2021-05-03] MEDS ORDERED: LOSARTAN 50 MG TAB PO SCH (09:00)
[2021-05-03] MEDS ORDERED: PANTOPRAZOLE 40 MG TABLET PO SCH (09:00)
[2021-05-03] MEDS ORDERED: DULoxetine HCL 30 MG CAPSULE.DR PO SCH (09:00)
[2021-05-03] MEDS ORDERED: METOPROLOL SUCCINATE (ER) 50 MG TAB.ER.24H PO SCH (09:00)
== END 2021-05-02 15:38 | disposition home or self-care (01) ==
LOC: EC 10:01 → 6NMEDSUR 14:34
PROVIDERS: ADMIT Orthopaedic Surgery Orthopaedic Surgery of the Spine; ATTEND Orthopaedic Surgery Orthopaedic Surgery of the Spine
DX: M51.16 Intervertebral disc disorders with radiculopathy, lumbar region (principal); R20.2 Paresthesia of skin; R32 Unspecified urinary incontinence; R53.1 Weakness; M51.36 Other intervertebral disc degeneration, lumbar region; I10 Essential (primary) hypertension; F17.200 Nicotine dependence, unspecified, uncomplicated; M79.89 Other specified soft tissue disorders; N40.1 Benign prostatic hyperplasia with lower urinary tract symptoms; M25.50 Pain in unspecified joint; K21.9 Gastro-esophageal reflux disease without esophagitis; R19.7 Diarrhea, unspecified; K59.00 Constipation, unspecified; G89.29 Other chronic pain; I25.2 Old myocardial infarction; F32.A Depression, unspecified; Z79.899 Other long term (current) drug therapy; Z79.02 Long term (current) use of antithrombotics/antiplatelets; Z98.1 Arthrodesis status; Z90.49 Acquired absence of other specified parts of digestive tract; Z96.82 Presence of neurostimulator; Z80.42 Family history of malignant neoplasm of prostate; Z82.49 Family history of ischemic heart disease and other diseases of the circulatory system; Z79.890 Hormone replacement therapy
CPT/HCPCS: 96376 ×2; 96374; 96375; 99285; 93971; 72192; 72131; G0378 ×2; J1100; J2930 ×2; J1170 ×3

== ENCOUNTER 2021-06-29 17:30 | Emergency (ER) | payer MEDICARE, OTHER ==
[2021-06-29 17:32] VITALS: RESP 20; TEMP 98.6
--- NOTE | 2021-06-29 18:27 | US ---
EXAMINATION TYPE: US venous doppler duplex LE LT DATE OF EXAM: 06/29/2021 5:59 PM COMPARISON: NONE CLINICAL HISTORY: Calf pain. Recent ankle fracture. Pain. No redness. On blood thinners. SIDE PERFORMED: Left TECHNIQUE: The lower extremity deep venous system is examined utilizing real time linear array sonog lawrence with graded compression, doppler sonography and color-flow sonography. VESSELS IMAGED: Common Femoral Vein Deep Femoral Vein Greater Saphenous Vein * Femoral Vein Popliteal Vein Small Saphenous Vein * Proximal Calf Veins (* superficial vessels) Left Leg: Negative for DVT,Grayscale, color doppler, spectral doppler imaging performed of the deep veins of the lower extremities. There is normal flow, compressibility, vascular waveforms. IMPRESSION: No evidence for deep vein thrombosis of the left lower extremity.
[2021-06-29 21:06] VITALS: BP 166/99; PULSE 94
[2021-06-29] MEDS ORDERED: HYDROmorphone 1 MG/ML 1 ML SYRINGE IVP STA (21:30)
[2021-06-29 22:14] LABS: ALT 24 U/L (4-49); AST 21 U/L (17-59); African American GFR (CKD) >90 (>60 ml/min/1.73 sqM); Albumin 4.5 g/dL (3.5-5.0); Alkaline Phosphatase 115 U/L (38-126); Anion Gap 10 mmol/L; Blood Urea Nitrogen 34 mg/dL (9-20); C Reactive Protein 2.1 mg/dL (<1.0); Calcium 9.4 mg/dL (8.4-10.2); Carbon Dioxide 27 mmol/L (22-30); Chloride 100 mmol/L (98-107); Creatine Kinase 36 U/L (55-170); Glucose 111 mg/dL (74-99); Non-African American GFR(CKD) 82 (>60 ml/min/1.73 sqM); Potassium 4.1 mmol/L (3.5-5.1); Sodium 137 mmol/L (137-145); Total Bilirubin 0.7 mg/dL (0.2-1.3); Total Protein 7.5 g/dL (6.3-8.2)
[2021-06-29 22:16] LABS: Basophils # (A) 0.1 k/uL (0-0.2); Basophils % (A) 1 %; Eosinophils # (A) 0.1 k/uL (0-0.7); Eosinophils % (A) 1 %; HCT 39.6 % (39.0-53.0); Hypochromasia Slight; Lymphocytes # (A) 2.8 k/uL (1.0-4.8); Lymphocytes % (A) 24 %; MCH 30.6 pg (25.0-35.0); MCHC 33.3 g/dL (31.0-37.0); MCV 91.7 fL (80.0-100.0); Mean Platelet Volume 8.1; Monocytes # (A) 0.7 k/uL (0-1.0); Monocytes % (A) 6 %; Neutrophils # (A) 7.9 k/uL (1.3-7.7); Neutrophils % (A) 67 %; Platelet Count 477 k/uL (150-450); Poikilocytosis Slight; RBC 4.32 m/uL (4.30-5.90); RDW 14.4 % (11.5-15.5); WBC 11.8 k/uL (3.8-10.6)
[2021-06-29 22:24] LABS: HGB 13.2 gm/dL (13.0-17.5)
--- NOTE | 2021-06-29 23:41 | ED ---
General Adult HPI - General Chief complaint: Extremity Injury, Lower Stated complaint: Post Op Leg Pain Time Seen by Provider: 06/29/21 20:55 Source: patient Mode of arrival: ambulatory Limitations: no limitations - History of Present Illness Initial comments: Abundio is a 60-year-old male who presents to the emergency department today for evaluation of pain and swelling of the left lower extremity. Patient had an injury a little over a week ago in which he had an open fracture of the ankle, he was seen at this hospital and transferred to [facility] where he had a stabilization surgery. Patient reports he is scheduled to undergo repeat recon structive surgeries in the near future. He followed with his surgeon Dr. Damon yesterday in office and was advised that the ankle appears to be healing well. At that time he had a splint placed back over the ankle and was discharged home. Despite taking his home pain medication patient noticed that his foot seemed more swollen and painful and his toes were beginning to tingle so he came to the hospital for evaluation. - Related Data Home Medications Medication Instructions Recorded Confirmed Atorvastatin [Lipitor] 40 mg PO HS 01/19/18 06/29/21 Clopidogrel [Plavix] 75 mg PO DAILY 01/19/18 06/29/21 Metoprolol Succinate (ER) [Toprol 50 mg PO DAILY 01/19/18 06/29/21 XL] DULoxetine HCL [Cymbalta] 30 mg PO DAILY 02/16/19 06/29/21 Ezetimibe [Zetia] 10 mg PO DAILY 11/17/19 06/29/21 Losartan Potassium 100 mg PO DAILY 11/17/19 06/29/21 hydroCHLOROthiazide [Hydrodiuril] 50 mg PO DAILY 11/17/19 06/29/21 Testosterone Cypionate 200 mg IM Q14D 11/26/19 06/29/21 [Depo-Testosterone] Acetaminophen [Acetaminophen ER] 650 mg PO Q8H 06/29/21 06/29/21 Butalb/Acetaminophen/Caffeine 1 cap PO BID PRN 06/29/21 06/29/21 [Fioricet 50-300-40 mg Capsule] Enoxaparin Sodium 40 mg SQ DAILY@1300 06/29/21 06/29/21 Lacosamide [Vimpat] 50 mg PO BID 06/29/21 06/29/21 Sulfamethox-Tmp 800-160Mg [Bactrim 1 tab PO BID 06/29/21 06/29/21 DS 800-160 mg] oxyCODONE HCL [OxyIR] 5 mg PO Q4H PRN 06/29/21 06/29/21 tiZANidine HCL 2 mg PO BID 06/29/21 06/29/21 Previous Rx's Medication Instructions Recorded Nitroglycerin Sl Tabs [Nitrostat] 0.4 mg SUBLINGUAL Q5M PRN tab 11/27/19 Allergies Allergy/AdvReac Type Severity Reaction Status Date / Time No Known Allergies Allergy Verified 06/29/21 21:25 Review of Systems ROS Statement: Those systems with pertinent positive or pertinent negative responses have been documented in the HPI. ROS Other: All systems not noted in ROS Statement are negative. Past Medical History Past Medical History: GERD/Reflux, Hypertension, [place] Infarction ([place]) Additional Past Medical History / Comment(s): joint pain, chronic pain, [place] 2010, chronic left side pain, on lyrica. Patient on disability due to his low back and cardiac issues over the past couple of years Last Myocardial Infarction Date:: 2010 History of Any Multi-Drug Resistant Organisms: None Reported Past Surgical History: Cholecystectomy, Heart Catheterization With Stent, Orthopedic Surgery Additional Past Surgical History / Comment(s): back fusion L5 S1, right wrist tendon repair, 06/19/21 open left ankle Fx Past Anesthesia/Blood Transfusion Reactions: No Reported Reaction Date of Last Stent Placement:: 2010 Past Psychological History: Depression Smoking Status: Current some day smoker Past Alcohol Use History: Rare Past Drug Use History: None Reported - Past Family History Father Family Medical History: Cancer, Coronary Artery Disease (CAD) Additional Family Medical History / Comment(s): prostate cancer Mother Family Medical History: Coronary Artery Disease (CAD) General Exam - General Exam Comments Initial Comments: Physical Exam GENERAL: Patient is well-developed and well-nourished. Patient is nontoxic and well-hydrated and is in no distress. HENT: Normocephalic, Atraumatic. EYES: PERRL, EOMI PULMONARY: Unlabored respirations. CARDIOVASCULAR: RRR Warm and well perfused extremities ABDOMEN: Non-distended SKIN: Well-healing surgical incisions left ankle medial and lateral 1 purple colored fracture blister is noted on the posterior lateral ankle : Deferred NEUROLOGIC: Alert and oriented Normal speech MUSCULOSKELETAL: Left foot is swollen, Refill is 3 seconds Splint was removed foot was evaluated ultrasound revealed there is no DVTs PSYCHIATRIC: No SI/HI Limitations: no limitations Course Vital Signs 06/29/21 06/29/21 17:30 21:06 Temperature 98.6 F 98.6 F Pulse Rate 114 H 94 Respiratory 20 Rate Blood Pressure 147/82 166/99 O2 Sat by Pulse 98 100 Oximetry Medical Decision Making - Medical Decision Making The patient was seen and evaluated, history is obtained from the patient, patient was evaluated by his orthopedic surgeon yesterday and had the splint replaced today he had worsening swelling and developed pain and tingling in his toes, I have a high suspicion that the splint was simply too tight, I did remove the splint to evaluate the leg and also obtain Dopplers which were negative. Patient was treated with single dose of pain medication reported feeling much better. Patient's port was reapplied he was encouraged to continue his home pain medication, keep the leg elevated and iced and follow-up with his orthopedic surgeon as scheduled. - Lab Data Result diagrams: 06/29/21 21:56 06/29/21 21:56 Lab Results 06/29/21 06/29/21 06/29/21 Range/Units 21:56 21:56 21:56 WBC 11.8 H (3.8-10.6) k/uL RBC 4.32 (4.30-5.90) m/uL Hgb 13.2 D (13.0-17.5) gm/dL Hct 39.6 (39.0-53.0) % MCV 91.7 (80.0-100.0) fL MCH 30.6 (25.0-35.0) pg MCHC 33.3 (31.0-37.0) g/dL RDW 14.4 (11.5-15.5) % Plt Count 477 H (150-450) k/uL MPV 8.1 Neutrophils % 67 % Lymphocytes % 24 % Monocytes % 6 % Eosinophils % 1 % Basophils % 1 % Neutrophils # 7.9 H (1.3-7.7) k/uL Lymphocytes # 2.8 (1.0-4.8) k/uL Monocytes # 0.7 (0-1.0) k/uL Eosinophils # 0.1 (0-0.7) k/uL Basophils # 0.1 (0-0.2) k/uL Hypochromasia Slight Poikilocytosis Slight Sodium 137 (137-145) mmol/L Potassium 4.1 (3.5-5.1) mmol/L Chloride 100 (98-107) mmol/L Carbon Dioxide 27 (22-30) mmol/L Anion Gap 10 mmol/L BUN 34 H (9-20) mg/dL Creatinine 0.99 (0.66-1.25) mg/dL Est GFR (CKD-EPI)AfAm >90 (>60 ml/min/1.73 sqM) Est GFR (CKD-EPI)NonAf 82 (>60 ml/min/1.73 sqM) Glucose 111 H (74-99) mg/dL Lactic Ac Sepsis Rflx Plasma Lactic Acid Horace 2.3 H* (0.7-2.0) mmol/L Calcium 9.4 (8.4-10.2) mg/dL Total Bilirubin 0.7 (0.2-1.3) mg/dL AST 21 (17-59) U/L ALT 24 (4-49) U/L Alkaline Phosphatase 115 (38-126) U/L Creatine Kinase 36 L (55-170) U/L C-Reactive Protein 2.1 H (<1.0) mg/dL Total Protein 7.5 (6.3-8.2) g/dL Albumin 4.5 (3.5-5.0) g/dL 06/29/21 Range/Units 22:29 WBC (3.8-10.6) k/uL RBC (4.30-5.90) m/uL Hgb (13.0-17.5) gm/dL Hct (39.0-53.0) % MCV (80.0-100.0) fL MCH (25.0-35.0) pg MCHC (31.0-37.0) g/dL RDW (11.5-15.5) % Plt Count (150-450) k/uL MPV Neutrophils % % Lymphocytes % % Monocytes % % Eosinophils % % Basophils % % Neutrophils # (1.3-7.7) k/uL Lymphocytes # (1.0-4.8) k/uL Monocytes # (0-1.0) k/uL Eosinophils # (0-0.7) k/uL Basophils # (0-0.2) k/uL Hypochromasia Poikilocytosis Sodium (137-145) mmol/L Potassium (3.5-5.1) mmol/L Chloride (98-107) mmol/L Carbon Dioxide (22-30) mmol/L Anion Gap mmol/L BUN (9-20) mg/dL Creatinine (0.66-1.25) mg/dL Est GFR (CKD-EPI)AfAm (>60 ml/min/1.73 sqM) Est GFR (CKD-EPI)NonAf (>60 ml/min/1.73 sqM) Glucose (74-99) mg/dL Lactic Ac Sepsis Rflx Y Plasma Lactic Acid Horace (0.7-2.0) mmol/L Calcium (8.4-10.2) mg/dL Total Bilirubin (0.2-1.3) mg/dL AST (17-59) U/L ALT (4-49) U/L Alkaline Phosphatase (38-126) U/L Creatine Kinase (55-170) U/L C-Reactive Protein (<1.0) mg/dL Total Protein (6.3-8.2) g/dL Albumin (3.5-5.0) g/dL Disposition Clinical Impression: Post-op pain Disposition: HOME SELF-CARE Condition: Stable Additional Instructions: Contact your surgeon and pain management doctor tomorrow for re-evaluation Is patient prescribed a controlled substance at d/c from ED?: No Referrals: Markell Rea MD [Primary Care Provider] - 1-2 days
== END 2021-06-30 00:06 | disposition home or self-care (01) ==
LOC: EC 17:30
DX: G89.18 Other acute postprocedural pain (principal); M79.605 Pain in left leg; I25.2 Old myocardial infarction; I10 Essential (primary) hypertension; F17.200 Nicotine dependence, unspecified, uncomplicated
CPT/HCPCS: 99284 ×2; 96374 ×2; 36415; 80053; 82550; 83605; 85025; 86140; 93971; J1170

== ENCOUNTER 2022-05-10 15:23 | Emergency (ER) | payer MEDICARE, OTHER ==
--- NOTE | 2022-05-10 17:47 | US ---
EXAMINATION TYPE: US venous doppler duplex LE LT DATE OF EXAM: 05/10/2022 5:40 PM COMPARISON: US CLINICAL HISTORY: swelling and pain. Swelling and pain left foot/ankle SIDE PERFORMED: Left TECHNIQUE: The lower extremity deep venous system is examined utilizing real time linear array sonog lawrence with graded compression, doppler sonography and color-flow sonography. VESSELS IMAGED: Common Femoral Vein Deep Femoral Vein Greater Saphenous Vein * Femoral Vein Popliteal Vein Small Saphenous Vein * Proximal Calf Veins (* superficial vessels) Left Leg: Negative for DVT IMPRESSION: No evidence of deep vein thrombosis in the left leg.
[2022-05-10] MEDS ORDERED: KETOROLAC 15 MG/ML 1 ML VIAL IM STA (18:03)
--- NOTE | 2022-05-10 18:15 | ED ---
Extremity Problem HPI - General Chief complaint: Extremity Problem,Nontraumatic Stated complaint: Pain left leg/sent by doctors Time Seen by Provider: 05/10/22 16:09 Source: patient Mode of arrival: ambulatory Limitations: no limitations - History of Present Illness Initial comments: Patient is a 61-year-old male presenting with concerns for DVT. Patient states over the last 3-4 days his left lower leg has been a bit swollen and has been cramping. Patient states that about a year ago he did break the ankle, which required surgery. Patient was of his pain management doctor appointment today, when they noted that the leg was swollen and painful they advised him to report to the ER. No erythema or bruising. No breaks in skin. No fevers or chills. No discoloration. Extremities still warm. No chest pain, difficulty breathing, palpitations, weakness, dizziness. - Related Data Home Medications Medication Instructions Recorded Confirmed Atorvastatin [Lipitor] 40 mg PO HS 01/19/18 06/29/21 Clopidogrel [Plavix] 75 mg PO DAILY 01/19/18 06/29/21 Metoprolol Succinate (ER) [Toprol 50 mg PO DAILY 01/19/18 06/29/21 XL] DULoxetine HCL [Cymbalta] 30 mg PO DAILY 02/16/19 06/29/21 Ezetimibe [Zetia] 10 mg PO DAILY 11/17/19 06/29/21 Losartan Potassium 100 mg PO DAILY 11/17/19 06/29/21 hydroCHLOROthiazide [Hydrodiuril] 50 mg PO DAILY 11/17/19 06/29/21 Testosterone Cypionate 200 mg IM Q14D 11/26/19 06/29/21 [Depo-Testosterone] Acetaminophen [Acetaminophen ER] 650 mg PO Q8H 06/29/21 06/29/21 Butalb/Acetaminophen/Caffeine 1 cap PO BID PRN 06/29/21 06/29/21 [Fioricet 50-300-40 mg Capsule] Enoxaparin Sodium 40 mg SQ DAILY@1300 06/29/21 06/29/21 Lacosamide [Vimpat] 50 mg PO BID 06/29/21 06/29/21 Sulfamethox-Tmp 800-160Mg [Bactrim 1 tab PO BID 06/29/21 06/29/21 DS 800-160 mg] oxyCODONE HCL [OxyIR] 5 mg PO Q4H PRN 06/29/21 06/29/21 tiZANidine HCL 2 mg PO BID 06/29/21 06/29/21 Previous Rx's Medication Instructions Recorded Nitroglycerin Sl Tabs [Nitrostat] 0.4 mg SUBLINGUAL Q5M PRN tab 11/27/19 Allergies Allergy/AdvReac Type Severity Reaction Status Date / Time No Known Allergies Allergy Verified 05/10/22 15:42 Review of Systems ROS Statement: Those systems with pertinent positive or pertinent negative responses have been documented in the HPI. ROS Other: All systems not noted in ROS Statement are negative. Past Medical History Past Medical History: GERD/Reflux, Hypertension, Myocardial Infarction ([place]) Additional Past Medical History / Comment(s): joint pain, chronic pain, [place] 2010, chronic left side pain, on lyrica. Patient on disability due to his low back and cardiac issues over the past couple of years Last Myocardial Infarction Date:: 2010 History of Any Multi-Drug Resistant Organisms: None Reported Past Surgical History: Cholecystectomy, Heart Catheterization With Stent, Orthopedic Surgery Additional Past Surgical History / Comment(s): back fusion L5 S1, right wrist tendon repair, 06/19/21 open left ankle Fx Past Anesthesia/Blood Transfusion Reactions: No Reported Reaction Date of Last Stent Placement:: 2010 Past Psychological History: Depression Smoking Status: Current some day smoker Past Alcohol Use History: Rare Past Drug Use History: None Reported - Past Family History Father Family Medical History: Cancer, Coronary Artery Disease (CAD) Additional Family Medical History / Comment(s): prostate cancer Mother Family Medical History: Coronary Artery Disease (CAD) General Exam Limitations: no limitations General appearance: alert, in no apparent distress Head exam: Present: atraumatic, normocephalic, normal inspection Eye exam: Present: normal appearance Neck exam: Present: normal inspection, full ROM Left Lower Leg exam: Present: full ROM, swelling (Mild swelling). Absent: tenderness, ecchymosis, deformity, erythema Neurovascular tendon exam: Present: no vascular compromise Neurological exam: Present: alert, oriented X3, CN II-XII intact Psychiatric exam: Present: normal affect, normal mood Skin exam: Present: warm, dry, intact, normal color. Absent: rash Course Vital Signs 05/10/22 05/10/22 15:40 19:10 Temperature 98.3 F 98.2 F Pulse Rate 75 70 Respiratory 20 18 Rate Blood Pressure 166/87 140/82 O2 Sat by Pulse 96 97 Oximetry Medical Decision Making - Medical Decision Making Was pt. sent in by a medical professional or institution (ED White, PURCHASING SPECIALIST, urgent care, hospital, or snf...) When possible be specific @ -Patient was sent in by his pain management doctor Did you speak to anyone other than the patient for history (EMS, parent, family, police, friend...)? What history was obtained from this source @ -No Did you review nursing and triage notes (agree or disagree)? Why? @ -I reviewed and agree with nursing and triage notes Were old charts reviewed (outside hosp., previous admission, EMS record, old EKG, old radiological studies, urgent care reports/EKG's, snf records)? Report findings @ -No old charts were reviewed Differential Diagnosis (chest pain, altered mental status, abdominal pain women, abdominal pain men, vaginal bleeding, weakness, fever, dyspnea, syncope, headache, dizziness, GI bleed, back pain, seizure, CVA, palpatations, mental health, musculoskeletal)? @ -Differential includes DVT, varicose veins, edema, CHF, this is not an all inclusive list EKG interpreted by me (3pts min.). @ -As above X-rays interpreted by me (1pt min.). @ -None done CT interpreted by me (1pt min.). @ -None done U/S interpreted by me (1pt. min.). @ -Ultrasound shows no evidence of DVT What testing was considered but not performed or refused? (CT, X-rays, U/S, labs)? Why? @ -None What meds were considered but not given or refused? Why? @ -None Did you discuss the management of the patient with other professionals (professionals i.e. ED [facility], PURCHASING SPECIALIST, lab, RT, psych nurse, director of social media marketing, phonograph needle tip maker, teacher, fiscal officer, gearcase assembler)? Give summary @ -No Was smoking cessation discussed for >3mins.? @ -No Was critical care preformed (if so, how long)? @ -No Were there social determinants of health that impacted care today? How? (Homelessness, low income, unemployed, alcoholism, drug addiction, transportation, low edu. Level, literacy, decrease access to med. care, halfway, rehab)? @ -No Was there de-escalation of care discussed even if they declined (Discuss DNR or withdrawal of care, Hospice)? DNR status @ -No What co-morbidities impacted this encounter? (DM, HTN, Smoking, COPD, CAD, Cancer, CVA, ARF, Chemo, Hep., AIDS, mental health diagnosis, sleep apnea, morbid obesity)? @ -None Was patient admitted / discharged? Hospital course, mention meds given and route, prescriptions, significant lab abnormalities, going to OR and other pertinent info. @ -Patient is a 61-year-old male presenting with chief complaint of left lower leg pain and swelling ongoing for the last 3-4 days. Ultrasound shows no evidence of DVT. Patient is having no difficulty breathing, chest pain, palpitations, weakness, dizziness. Patient is educated on ultrasound findings. Educated on supportive treatment at home to reduce swelling. Patient is agreeable to discharge home. Follow-up with PCP. Report back to ER with any new or worsening symptoms. Discussed return parameters and answered all questions. Patient conveyed verbal understanding and agreed to the plan. I discussed this case in detail with my attending Dr. Stovall Undiagnosed new problem with uncertain prognosis? @ -No Drug Therapy requiring intensive monitoring for toxicity (Heparin, Nitro, Insulin, Cardizem)? @ -No Were any procedures done? @ -No Diagnosis/symptom? @ -Edema Acute, or Chronic, or Acute on Chronic? @ -Acute Uncomplicated (without systemic symptoms) or Complicated (systemic symptoms)? @ -Uncomplicated Side effects of treatment? @ -No Exacerbation, Progression, or Severe Exacerbation? @ -No Poses a threat to life or bodily function? How? (Chest pain, [place], [place], pneumonia, PE, COPD, DKA, ARF, appy, cholecystitis, CVA, Diverticulitis, Homicidal, Suicidal, threat to staff... and all critical care pts) @ -No Disposition Clinical Impression: Edema Disposition: HOME SELF-CARE Condition: Good Instructions (If sedation given, give patient instructions): Leg Edema (ED) Additional Instructions: Follow-up with PCP. Report back to ER with any new or worsening symptoms. Utilize compression socks. Rest and elevate the legs. Is patient prescribed a controlled substance at d/c from ED?: No Referrals: Markell Rea MD [Primary Care Provider] - 1-2 days Time of Disposition: 18:15
[2022-05-10 19:15] VITALS: BP 140/82; PULSE 70; RESP 18; TEMP 98.2
== END 2022-05-10 19:10 | disposition home or self-care (01) ==
LOC: EC 15:23
DX: R60.0 Localized edema (principal); I10 Essential (primary) hypertension; K21.9 Gastro-esophageal reflux disease without esophagitis; I25.2 Old myocardial infarction; F32.A Depression, unspecified; F17.200 Nicotine dependence, unspecified, uncomplicated; Z79.899 Other long term (current) drug therapy
CPT/HCPCS: 93971; 99283; 96372; J1885